=== PATIENT | female | born 1965 | race Caucasian/White ===

== ENCOUNTER → 2018-09-14 | Outpatient (CLI) | payer OTHER ==
[~2018-09-14] MED LIST: AMOXICILLIN; BACITRACIN 50,000 UNIT VIAL ONE; BUPIVACAINE HCL 0.5% INJ 30 ML VIAL INJ ONE; CIPRO500 MG PO; COLLAGENASE OINTMENT 30 GM TUBE ONE; FLEXERIL PO; GABAPENTIN300 MG PO; LIDOCAINE/PRILOCAINE 2.5-2.5% KIT ONE; LISINOPRIL40 MG PO; MINERAL OIL STERILE 10ML VIAL ONE; MUPIROCIN 2% OINT 22 GM TUBE ONE; [UNRECOGNIZED DRUG - OTHER]
== END ==
LOC: WCC 14:47
PROVIDERS: ATTEND Plastic Surgery
DX: T86.821 Skin graft (allograft) (autograft) failure (principal); S81.802A Unspecified open wound, left lower leg, initial encounter; R60.0 Localized edema; M79.661 Pain in right lower leg; L02.435 Carbuncle of right lower limb; I10 Essential (primary) hypertension; B96.89 Other specified bacterial agents as the cause of diseases classified elsewhere; W22.09XA Striking against other stationary object, initial encounter; Z01.810 Encounter for preprocedural cardiovascular examination; Z01.811 Encounter for preprocedural respiratory examination

== ENCOUNTER → 2018-09-17 | Day surgery (SDC) | payer OTHER ==
[~2018-09-17] MED LIST changes: +ACETAMINOPHEN 1000 MG/100 ML IV ONE; -BACITRACIN 50,000 UNIT VIAL ONE; -BUPIVACAINE HCL 0.5% INJ 30 ML VIAL INJ ONE; +CEFAZOLIN SOD 1 GM/NS 50ML 50 ML IV ONE; -COLLAGENASE OINTMENT 30 GM TUBE ONE; +DESFLURANE 240 ML BTL INH ONE; +DEXAMETHASONE SOD PHOS INJ 4 MG/ML VIAL ONE; +EPHEDRINE SULFATE INJ 50 MG/10 ML SYR ONE; +FENTANYL CITRATE/PF 100MCG/2 ML INJ ONE; +HYDROMORPHONE 2MG/ML 2 MG/ML ML ONE; +LIDOCAINE HCL 2% LOCAL INJ 5 ML SDV VIAL INJ ONE; -LIDOCAINE/PRILOCAINE 2.5-2.5% KIT ONE; +MIDAZOLAM HCL 2 MG/2 ML VIAL ONE; -MINERAL OIL STERILE 10ML VIAL ONE; -MUPIROCIN 2% OINT 22 GM TUBE ONE; +ONDANSETRON HCL INJ 2MG/ML 2ML 2 MG/ML VIAL ONE; +PROPOFOL IV EMULSION 10 MG/ML 20 ML VIAL ONE
--- OUTSIDE RECORDS SUMMARY | 2018-09-17 06:22 | XMS REPORT | Clinical Summary ---
Author Author [employer] [facility] [employer] Address Unknown Phone Unavailable Care Team Providers Care Manager Title Name Role Phone Damaris Pryor MD PCP Allergies No Known Allergies Medications End Date Status Medication Sig Dispensed Refills Start Date Active cyclobenzaprine 0 (FLEXERIL) 10 mg tablet 8 Active gabapentin (NEURONTIN) 0 300 mg capsule 8 Active pfojmcekdg-qdXGCGPod-alxl 0 iazid 40-10-12.5 mg 8 tablet Active oxyCODone-acetaminophen 0 (PERCOCET) 10-325 mg per 8 tablet Active traZODone (DESYREL) 50 MG 0 tablet 8 Active CHANTIX STARTING MONTH 0 BOX 0.5 mg (11)- 1 mg 8 (42) tablet Active lactulose (CHRONULAC) 10 0 gram/15 mL solution 8 04/03/2018 Discontinued meloxicam (MOBIC) 15 mg 0 tablet 8 04/03/2018 Discontinued naproxen sodium (ALEVE Take by 0 ORAL) mouth. Active Problems Not on file Encounters Care Team Description Date Type Specialty Tommy Camarena MD Spinal stenosis of lumbar region with neurogenic claudication (Primary Dx) 04/21/2018 Office Visit Orthopedic Surgery Julius Bryant MD 04/03/2018 Anesthesia Orthopedic Surgery Event Tommy Camarena MD DECOMPRESSION L2-4 04/03/2018 Surgery Orthopedic Surgery Tommy Camarena MD Spinal stenosis, lumbar region, with neurogenic claudication; Lumbosacral stenosis; Sciatica 04/03/2018 Hospital Orthopedic Surgery Encounter Tommy Camarena MD Preop testing (Primary Dx) 03/17/2018 Pre-Admit Pre-Admission Testing Testing Appointment Tommy Camarena MD Spinal stenosis of lumbar region with neurogenic claudication (Primary Dx) 03/17/2018 Office Visit Orthopedic Surgery after 09/16/2017 Family History Medical History Relation Name Comments Cancer Father Tommy Lopez Relation Name Status Comments Father Tommy Lopez Social History Date Tobacco Use Types Packs/Day Years Used Current Every Day Smoker Cigarettes 0.5 Smokeless Tobacco: Never Used Tobacco Cessation: Ready to Quit: Yes; Counseling Given: Yes Alcohol Use Drinks/Week oz/Week Comments No Sex Assigned at Date Recorded Not on file Industry Job Start Date Occupation Not on file Not on file Not on file Travel End Travel History Travel Start No recent travel history available. Last Filed Vital Signs Time Taken Vital Sign Reading 04/03/2018 11:17 AM [facility] Blood Pressure 112/74 04/03/2018 11:17 AM [facility] Pulse 81 04/03/2018 11:50 AM [facility] Temperature 36.7 C (98 F) 04/03/2018 11:17 AM [facility] Respiratory Rate 16 04/03/2018 11:17 AM [facility] Oxygen Saturation 96% - Inhaled Oxygen - Concentration 04/03/2018 6:38 AM [facility] Weight 87.1 kg (192 lb) 04/03/2018 6:38 AM [facility] Height 167.6 cm (5' 6") 04/03/2018 6:38 AM [facility] Body Mass Index 30.99 Plan of Treatment Health Maintenance Due Date Last Done Comments BREAST CANCER SCREENING 2014 COLON CANCER SCREENING 2014 SHINGLES VACCINES (#1) 2014 INFLUENZA VACCINE 11/12/2018 Procedures Comments Procedure Name Priority Date/Time Associated Diagnosis SURGICAL PATHOLOGY Routine 04/03/2018 REQUEST 8:49 AM [facility] TX AN ELECTIVE Routine 04/03/2018 ENDOTRACHEAL AIRWAY 8:24 AM [facility] Procedure Note - Venkata Mckinley CRNA - 04/03/2018 8:24 AM [facility] ANESTHESIA INTUBATION Date/Time: 04/03/2018 8:07 AM Performed by: Venkata Mckinley CRNA Authorized by: Julius Bryant MD Location: OR Urgency: Elective Difficult Airway: No Resident/C RNA/AA: Venkata Mckinley CRNA Performed by: resident/C RNA/AA Preoxygena manjinder with 100% O2: Yes C-spine Precaution s Maintained Throughout : Yes Mask Ventilatio n: Easy mask Final Airway Type: Endotrache al airway Final Endotrache al Airway: ETT Cuffed: Yes Technique Used: Direct laryngosco py Devices/Me thods Used in Placement: Intubatin g stylet Insertion Site: Oral Blade Type: Mendoza Laryngosco pe Blade/Vide olaryngosc ope Blade Size: 2 ETT Size (mm): 7.0 Cuff at minimum occlusion pressure: Yes Measured from: Lips ETT to Lips (cm): 22 Placement Verified by: CO2 detection, direct visualizat ion and equal breath sounds Laryngosco pic view: Grade IIa - partial view of glottis Rapid Sequence Induction (RSI): No Modified RSI: No Number of Attempts at Approach: 1 SMOOTH, ATRAUMATIC INTUBATION OR [place] < 1 HOUR Routine 04/03/2018 8:22 AM [facility] LAMINECTOMY, LUMBAR 04/03/2018 Spinal stenosis, lumbar 8:00 AM [facility] region, with neurogenic claudication Lumbosacral stenosis Sciatica Case Notes LARGE C-ARM Special Needs LARGE C-ARM, MICROSCOPE ECG PRE/POST OP Routine 03/17/2018 Preop testing 11:23 AM [facility] ESTIMATED GFR Routine 03/17/2018 10:55 AM [facility] COMPREHENSIVE METABOLIC Routine 03/17/2018 Preop testing PANEL 10:55 AM [facility] HC COMPLETE BLD COUNT Routine 03/17/2018 Preop testing W/AUTO DIFF 10:55 AM [facility] after 09/16/2017 Results * Surgical pathology request (04/03/2018 8:49 AM [facility]OR) [facility] DEPARTMENT OF PATHOLOGY AND GENOMIC MEDICINE Surgical See link below for PDF Lab [facility] DEPARTMENT pathology Report OF PATHOLOGY report AND GENOMIC MEDICINE Result status This is Final Report for [facility] DEPART[facility] [id number] OF PATHOLOGY AND GENOMIC MEDICINE Specimen Performing Organization Address City/State/Zipcode Phone Number [facility] DEPARTMENT OF [address] [place] [address] PATHOLOGY AND GENOMIC MEDICINE * OR [place] < 1 Hour (04/03/2018 8:22 AM [facility] TA[facility]) Specimen Narrative Performed At EXAMINATION:[place] 1 HOUR [facility] C-arm fluoroscopy was requested in OR. Location:[facility]19 - OR10 Procedure:Decompression L2-L4 Start Time:744 End Time: 20 Fluoro Time:1 SEC Dose (mGy): 0.64 mGy Tech(s):GXA IMPRESSION: Separate operative report will be issued by the physician performing the procedure. [id number] Procedure Note Hm Interface, Radiology Results Incoming - 04/03/2018 10:21 PM [facility] EXAMINATION: [place] 1 HOUR C-arm fluoroscopy was requested in OR. Location: [facility]19 - OR10 Procedure: Decompression L2-L4 Start Time: 744 End Time: 819 Fluoro Time: 1 SEC Dose (mGy): 0.64 mGy Tech(s): GXA IMPRESSION: Separate operative report will be issued by the physician performing the procedure. [id number] Performing Organization Address City/[facility] Phone Number [facility] [address] [place] [address] * ECG Pre/Post Op (03/17/2018 11:23 AM [facility] TA[facility]OR) Ventricular 82 [facility] rate Atrial rate 82 [facility] TX interval 146 [facility] QRSD interval 118 [facility] QT interval 400 [facility] QTC interval 467 [facility] P axis 1 26 [facility] QRS axis 1 14 [facility] T wave axis 15 [facility] EKG impression Normal sinus rhythm-Incomplete [facility] right bundle branch block-Borderline ECG-No previous ECGs available- Specimen Narrative Performed At Performing Organization Address [facility] Phone Number [facility] [employer] [address] [place] [address] * Estimated GFR (03/17/2018 10:55 AM [facility] TA[facility]OR) Estimated GFR 50 (A) mL/min/1.73 m2 [place] Comment: [facility] rpretation G1 >=90 Normal or high G2 60-89Mildly decreased [id number] Mildly to moderately decreased Q2x55-18 Moderately to severely decreased G4 15-29Severely decreased G5 <15Kidney failure The eGFR was calculated using the Chronic Kidney Disease Epidemiology Collaboration (CKD-EPI) equation. Interpretation is based on recommendations of the National Kidney Foundation-Kidney Disease Outcomes Quality Initiative (NKF-KDOQI) published in 2014. Specimen Plasma specimen Performing Organization Address City/State/Zipcode Phone Number [facility] DEPARTMENT OF [address] [place] [phone] PATHOLOGY AND GENOMIC MEDICINE [address] * CBC with platelet and differential (03/17/2018 10:55 AM [facility] TAILOR) WBC 6.48 4.50 - 11.00 k/uL [facility] RBC 3.83 (L) 4.20 - 5.50 m/uL [facility] HGB 10.8 (L) 12.0 - 16.0 g/dL [facility] HCT 35.0 (L) 37.0 - 47.0 % [facility] MCV 91.4 82.0 - 100.[address] [facility] MCH 28.2 27.0 - 34.[address] [facility] MCHC 30.9 (L) 31.0 - 37.0 g/dL [facility] RDW - SD 45.9 37.0 - 55.[address] [facility] MPV 10.1 8.8 - 13.[address] [facility] Platelet count 538 (H) 150 - 400 k/uL [facility] Nucleated RBC 0.00 /[address] [facility] Neutrophils 51.3 39.0 - 69.0 % [facility] Lymphocytes 33.8 25.0 - 45.0 % [facility] Monocytes 11.4 (H) 0.0 - 10.0 % [facility] Eosinophils 2.3 0.0 - 5.0 % [facility] Basophils 0.6 0.0 - 1.0 % [facility] Immature 0.6Comment: "Immature 0.0 - 1.0 % [place] granulocytes granulocytes" (promyelocytes, [facility] myelocytes, metamyelocytes) HOSPITAL Specimen Blood Performing Organization Address City/[facility]/Zipcode Phone Number [facility] DEPARTMENT OF [address] [place] [phone] PATHOLOGY AND GENOMIC MEDICINE [address] * Comprehensive metabolic panel (03/17/2018 10:55 AM [facility] TAILOR) Sodium 142 135 - 148 mEq/L [facility] Potassium 4.2 3.5 - 5.0 mEq/L [facility] Chloride 101 98 - 112 mEq/L [facility] CO2 26 24 - 31 mEq/L [facility] Anion gap 15@ANIO 7 - 15 mEq/L [facility] BUN 20 6 - 20 mg/dL [facility] Creatinine 1.22 (H) 0.50 - 0.90 mg/dL [facility] Glucose 78 65 - 99 mg/dL [facility] Calcium 10.0 8.3 - 10.2 mg/dL [facility] Protein 7.1 6.3 - 8.3 g/dL [place] Comment: [facility] 4.6-7.0 g/dL 1 week 4.4-7.6 g/dL 7 months-1year 5.1-7.3 g/dL 1-2 years5.6-7 .5 g/dL >3 years6.0-8 .0 g/dL 18-150 6.3-8.3 g/dL Albumin 3.6 3.5 - 5.0 g/dL [facility] A/G ratio 1.0 0.7 - 3.8 [facility] Alkaline 84 35 - 104 U/L [place] phosphatase [facility] AST 20 10 - 35 U/L [facility] ALT 9 5 - 50 U/L [facility] Total bilirubin <0.2 0.0 - 1.2 mg/dL [facility] Specimen Plasma specimen Performing Organization Address City/State/Zipcode Phone Number [facility] DEPARTMENT OF [address] [place] [phone] PATHOLOGY AND GENOMIC MEDICINE [address] after 09/16/2017 Insurance Type Payer Benefit Subscriber ID Effective Phone Address Plan / Dates Group HMO AETNA AETNA xxxxxxxxxx [id number] HMO,POS,EP resent O, MC/EC Advance Directives Patient has advance care planning documents on file. For more information, chantell ramírez contact: [facility] [address] [facility] [place] [address]
--- OUTSIDE RECORDS SUMMARY | 2018-09-17 06:23 | XMS REPORT | Continuity of Care Document ---
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 25 MG / Olmesartan medoxomil 40 MG Oral Tablet [Tribenzor ] 1 tab, PO, Daily, 0 Refill(s) Active 06/13/2017 [facility] Dilaudid 1 mg, Route: IV, ONCE, Dosing Weight 89.091, kg, Start date: 12/28/15 19:33:00 CDT, Stop date: 12/28/15 19:33:00 CDT Inactive 12/29/2015 [facility] Ketamine 100 mg, Route: IVP, ONCE, Dosing Weight 89.091, kg, Priority: STAT, Start date: 12/28/15 18:32:00 CDT, Stop date: 12/28/15 18:32:00 CDT Inactive 12/28/2015 [facility] Propofol 100 mg, Route: IVP, ONCE, Dosing Weight 89.091, kg, Priority: STAT, Start date: 12/28/15 18:32:00 CDT, Stop date: 12/28/15 18:32:00 CDT Inactive 12/28/2015 [facility] Dilaudid 1 mg, Route: IV, ONCE, Dosing Weight 89.091, kg, Start date: 12/28/15 17:26:00 CDT, Stop date: 12/28/15 17:26:00 CDT Inactive 12/28/2015 [facility] Ondansetron 4 mg, Route: IVP, Drug form: INJ, ONCE, Dosing Weight 89.091, kg, Priority: STAT, Start date: 12/28/15 16:09:00 CDT, Stop date: 12/28/15 16:09:00 CDT Inactive 12/28/2015 [facility] Morphine 4 mg, Route: IVP, ONCE, Dosing Weight 89.091, kg, Priority: STAT, Start date: 12/28/15 16:09:00 CDT, Stop date: 12/28/15 16:09:00 CDT Inactive 12/28/2015 [facility] Enoxaparin 40 mg, 0.4 mL, Route: SUB-Q, Drug form: INJ, [id number], Dosing Weight 89.091, kg, Start date: 11/12/15 7:00:00 CDT, Duration: 30 day, Stop date: 12/11/15 7:00:00 CDTNotes: (Same as: Lovenox) No Longer Active 11/12/2015 [facility] Sodium Chloride 0.154 MEQ/ML Injectable Solution 1,000 mL, Rate: 100 ml/hr, Infuse over: 10 hr, Route: IV, Dosing Weight 89.091 kg, Total Volume: 1,000, Start date: 11/12/15 1:31:00 CDT, Duration: 30 day, Stop date: 12/12/15 1:30:00 CDT Inactive 11/12/2015 [facility] Acetaminophen 325 MG / Hydrocodone Bitartrate 5 MG Oral Tablet 1 tab, Route: PO, Drug Form: TAB, Dosing Weight 89.091, kg, Q4H, PRN Pain Score 4-6, Start date: 11/12/15 1:31:00 CDT, Duration: 30 day, Stop date: 12/12/15 1:30:00 CDTNotes: (Same as: Clovis 325/5) Do not exceed 4gm/day of acetaminophen. No Longer Active 11/12/2015 [facility] Ondansetron 4 mg, 2 mL, Route: IVP, Drug form: INJ, Q6H, Dosing Weight 89.091, kg, PRN Nausea & Vomiting, Start date: 11/12/15 1:31:00 CDT, Duration: 30 day, Stop date: 12/12/15 1:30:00 CDTNotes: (Same as: Zofran) MEDICATION WASTE Product Size: 4 mg Product Wasted: ___ mg No Longer Active 11/12/2015 [facility] Docusate 100 mg, 1 cap, Route: PO, Drug form: CAP, BID, Dosing Weight 89.091, kg, PRN Constipation, Start date: 11/12/15 1:31:00 CDT, Duration: 30 day, Stop date: 12/12/15 1:30:00 CDTNotes: (Same as: Colace) (Do Not Crush) No Longer Active 11/12/2015 [facility] Morphine 4 mg, 2 mL, Route: IVP, Drug form: INJ, Q4H, Dosing Weight 89.091, kg, PRN Pain Score 7-10, Start date: 11/12/15 1:31:00 CDT, Duration: 30 day, Stop date: 12/12/15 1:30:00 CDTNotes: (Same as:MORPhine Sulfate) No Longer Active 11/12/2015 [facility] Saline Flush 0.9% 10 ml, Route: IVP, Drug Form: INJ, Dosing Weight 89.091, kg, PRN, PRN Line Flush, Start date: 11/12/15 1:31:00 CDT, Duration: 30 day, Stop date: 12/12/15 1:30:00 CDTNotes: (Same as: BD Posiflush) No Longer Active 11/12/2015 [facility] Acetaminophen 650 mg, 2 tab, Route: PO, Drug form: TAB, Q4H, Dosing Weight 89.091, kg, PRN Pain 1-3/Temp > 100.4 F, Start date: 11/12/15 1:31:00 CDT, Duration: 30 day, Stop date: 12/12/15 1:30:00 CDTNotes: Do not exceed 4 gm/day. (Same as: Tylenol) No Longer Active 11/12/2015 [facility] Hydromorphone 1 mg, Route: IV, ONCE, Dosing Weight 89.091, kg, Start date: 11/11/15 23:42:00 CDT, Stop date: 11/11/15 23:42:00 CDT Inactive 11/12/2015 [facility] propofol 89.091 mg, 8.91 mL, Route: IVP, Drug form: SUSP, ONCE, Dosing Weight 89.091, kg, Priority: STAT, Start date: 11/11/15 21:56:00 CDT, Stop date: 11/11/15 21:56:00 CDTNotes: If Diprivan - change bottle & tubing every 12 hr Per state nursing law propofol can only be given by a nurse if patient is intubated or being intubated (unless the nurse is a WARP K[employer]IT OPERATOR). Same as: Diprivan No Longer Active 11/12/2015 [facility] Sodium Chloride 0.154 MEQ/ML Injectable Solution 1,000 mL, Rate: 125 ml/hr, Infuse over: 8 hr, Route: IV, Dosing Weight 89.091 kg, Total Volume: 1,000, Priority: STAT, Start date: 11/11/15 21:28:00 CDT, Duration: 1 doses or times, Stop date: 11/12/15 5:27:00 CDT No Longer Active 11/12/2015 [facility] Propofol 89.091 mg, 8.91 mL, Route: IVP, Drug form: INJ, ONCE, Dosing Weight 89.091, kg, Priority: STAT, Start date: 11/11/15 21:28:00 CDT, Stop date: 11/11/15 21:28:00 CDTNotes: If Propoven - change bottle & tubing every 6 hr. Per state nursing law propofol can only be given by a nurse if patient is intubated or being intubated (unless the nurse is a WARP KNIT OPERATOR). Same as: Propoven, [employer] Propoven Non Formulary Inactive 11/12/2015 [facility] Saline Flush 0.9% 10 mL, Route: IVP, Drug Form: INJ, Dosing Weight 89.091, kg, PRN, PRN Line Flush, Start date: 11/11/15 21:27:00 CDT, Duration: 30 day, Stop date: 12/11/15 21:26:00 CDTNotes: (Same as: BD Posiflush) No Longer Active 11/12/2015 [facility] Sodium Chloride 0.154 MEQ/ML Injectable Solution 1,000 mL, 1,000 ml/hr, Infuse Over: 1 hr, Route: IV, 1,000, Drug form: INJ, ONCE, Priority: STAT, Dosing Weight 89.091 kg, Start date: 11/11/15 21:27:00 CDT, Duration: 1 doses or times, Stop date: 11/11/15 21:27:00 CDT Inactive 11/12/2015 [facility] Ondansetron 4 mg, 2 mL, Route: IVP, Drug form: INJ, ONCE, Dosing Weight 89.091, kg, Priority: STAT, Start date: 11/11/15 21:27:00 CDT, Stop date: 11/11/15 21:27:00 CDTNotes: (Same as: Zohra) MEDICATION WASTE Product Size: 4 mg Product Wasted: ___ mg Inactive 11/12/2015 [facility] Dilaudid 2 mg, Route: IVP, ONCE, Dosing Weight 89.091, kg, Priority: STAT, Start date: 11/11/15 21:17:00 CDT, Stop date: 11/11/15 21:17:00 CDT Inactive 11/12/2015 [facility] doxycycline hyclate 100 mg oral tablet 100 mg=1 tab, PO, Q12H, X 10 day, # 20 tab, 0 Refill(s) Active 09/27/2015 [facility] clindamycin 300 mg oral capsule 300 mg=1 cap, PO, Q6H, X 10 day, # 40 cap, 0 Refill(s) Active 09/27/2015 [facility] Ceftriaxone 1 gm, Route: IVPB, Drug form: PDR/INJ, ONCE, Dosing Weight 90.909, kg, Priority: STAT, Start date: 09/26/15 22:13:00 CDT, Stop date: 09/26/15 22:13:00 CDT Inactive 09/27/2015 [facility] Clindamycin 900 mg, 50 mL, Route: IVPB, Drug form: INJ, ONCE, Dosing Weight 90.909, kg, Priority: STAT, Start date: 09/26/15 22:13:00 CDT, Stop date: 09/26/15 22:13:00 CDT Inactive 09/27/2015 [facility] Acetaminophen 325 MG / Hydrocodone Bitartrate 7.5 MG Oral Tablet [Clovis 7.5/325] 1 tab, PO, Q4H, PRN Pain Score 4-6, # 40 tab, 0 Refill(s), given to patient Active 03/23/2015 [facility] Acetaminophen 325 MG / Oxycodone Hydrochloride 10 MG Oral Tablet 1 tab, PO, Q6H, PRN for pain, # 30 tab, 0 Refill(s), given to patient Active 03/23/2015 [facility] Lunesta 3 mg, Route: PO, Bedtime, Dosing Weight 90.909, kg, Start date: 03/22/15 21:00:00, Duration: 30 day, Stop date: 04/20/15 21:00:00 Inactive 03/23/2015 [facility] Lisinopril 40 mg, 2 tab, Route: PO, Drug form: TAB, Daily, Dosing Weight 90.909, kg, Start date: 03/22/15 9:00:00, Duration: 30 day, Stop date: 04/20/15 9:00:00Notes: (Same as: Prinivil, Zestril) No Longer Active 03/22/2015 [facility] Hydrochlorothiazide 12.5 mg, 1 cap, Route: PO, Drug form: CAP, Daily, Dosing Weight 90.909, kg, Start date: 03/22/15 9:00:00, Duration: 30 day, Stop date: 04/20/15 9:00:00Notes: (Same as: Microzide) With food. No Longer Active 03/22/2015 [facility] pneumococcal capsular polysaccharide type 1 vaccine / pneumococcal capsular polysaccharide type 10A vaccine / pneumococcal capsular polysaccharide type 11A vaccine / pneumococcal capsular polysaccharide type 12F vaccine / pneumococcal capsular polysacchar 0.5 mL, Route: IM, Drug Form: INJ, Daily, Start date: 03/22/15 9:00:00, Duration: 1 doses or times, Stop date: 03/22/15 9:00:00Notes: (Same as: Pneumovax 23) Refrigerate Inactive 03/22/2015 [facility] Lovenox 30 mg, 0.3 mL, Route: SUB-Q, Drug form: INJ, [id number], Start date: 03/22/15 9:00:00, Duration: 30 day, Stop date: 04/20/15 21:00:00Notes: (Same as: Lovenox) No Longer Active 03/22/2015 [facility] Cipro 400 mg, 200 mL, Route: IVPB, Drug form: INJ, [id number], Dosing Weight 90.909, kg, Start date: 03/22/15 7:00:00, Duration: 3 day, Stop date: 03/24/15 19:00:00Notes: Do not refrigerate No Longer Active 03/22/2015 [facility] Dilaudid 1.5 mg, 1.5 mL, Route: IV, Drug form: INJ, Q6H, Dosing Weight 90.909, kg, PRN Pain Score 7-10, Start date: 03/22/15 6:19:00, Duration: 2 day, Stop date: 03/24/15 6:18:00 No Longer Active 03/22/2015 [facility] Acetaminophen 325 MG / Hydrocodone Bitartrate 10 MG Oral Tablet [Clovis 10/325] 2 tab, Route: PO, Drug Form: TAB, Dosing Weight 90.909, kg, Q4H, PRN Pain Score 4-6, Start date: 03/22/15 6:18:00, Duration: 30 day, Stop date: 04/21/15 6:17:00Notes: Do not exceed 4gm/day of acetaminophen. (Same as: Clovis 325/10) No Longer Active 03/22/2015 [facility] Lunesta 3 mg, Route: PO, Bedtime, Dosing Weight 90.909, kg, Start date: 03/21/15 21:00:00, Duration: 30 day, Stop date: 04/19/15 21:00:00 Inactive 03/22/2015 [facility] gabapentin 300 MG Oral Capsule 300 mg, 1 cap, Route: PO, Drug form: CAP, TID, Dosing Weight 90.909, kg, Start date: 03/21/15 17:00:00, Duration: 30 day, Stop date: 04/20/15 13:00:00Notes: (Same as: Neurontin) No Longer Active 03/21/2015 [facility] Docusate 100 mg, 1 cap, Route: PO, Drug form: CAP, BID, Dosing Weight 90.909, kg, Start date: 03/21/15 17:00:00, Duration: 30 day, Stop date: 04/20/15 9:00:00Notes: (Same as: Colace) (Do Not Crush) No Longer Active 03/21/2015 [facility] Lunesta 3 mg, Route: PO, Drug form: TAB, Bedtime, Dosing Weight 90.909, kg, PRN Insomnia, Start date: 03/21/15 16:58:00, Duration: 30 day, Stop date: 04/20/15 16:57:00 Inactive 03/21/2015 [facility] Valium 5 mg, Route: PO, Drug form: TAB, QID, Dosing Weight 90.909, kg, PRN Spasm, Start date: 03/21/15 16:58:00, Duration: 30 day, Stop date: 04/20/15 16:57:00 Inactive 03/21/2015 [facility] Ambien 5 mg, 1 tab, Route: PO, Drug form: TAB, Bedtime, Start date: 03/21/15 15:25:00, Stop date: 04/20/15 21:00:00Notes: (Same As: Ambien) No Longer Active 03/21/2015 [facility] ceFAZolin (SCIP) 1 gm, 100 mL, Route: IVPB, Drug form: INJ, [id number], Dosing Weight 90.909, kg, Start date: 03/21/15 12:00:00, Duration: 3 doses or times, Stop date: 03/22/15 4:00:00 No Longer Active 03/21/2015 [facility] Ondansetron 4 mg, Route: IVP, ONCE, Dosing Weight 90.909, kg, PRN Nausea & Vomiting, Start date: 03/21/15 11:12:00 Inactive 03/21/2015 [facility] Hydromorphone 0.5 mg, Route: IVP, Q5Min, Dosing Weight 90.909, kg, PRN Pain Score 7-10, Start date: 03/21/15 11:12:00, Duration: 4 doses or times, Stop date: Limited # of times Inactive 03/21/2015 [facility] Meperidine 12.5 mg, Route: IVP, Q30Min, Dosing Weight 90.909, kg, PRN Other -See Comment, For shivering, Start date: 03/21/15 11:12:00, Duration: 2 doses or times, Stop date: Limited # of times Inactive 03/21/2015 [facility] Morphine 4 mg, Route: IVP, Q5Min, Dosing Weight 90.909, kg, PRN Pain Score 7-10, Start date: 03/21/15 11:12:00, Duration: 3 doses or times, Stop date: Limited # of times Inactive 03/21/2015 [facility] Flumazenil 0.2 mg, Route: IVP, PRN, Dosing Weight 90.909, kg, PRN Benzodiazepine Reversal, Initial dose, Start date: 03/21/15 11:12:00, Duration: 30 day, Stop date: 04/20/15 11:11:00 Inactive 03/21/2015 [facility] Naloxone 0.04 mg, Route: IVP, Q2MIN, Dosing Weight 90.909, kg, PRN Narcotic Reversal, Start date: 03/21/15 11:12:00, Duration: 8 doses or times, Stop date: Limited # of times Inactive 03/21/2015 [facility] Metoprolol 1 mg, Route: IVP, Q5Min, Dosing Weight 90.909, kg, PRN Other -See Comment, Start date: 03/21/15 11:12:00, Duration: 5 doses or times, Stop date: Limited # of times Inactive 03/21/2015 [facility] Oxycodone 5 mg, Route: PO, Drug form: TAB, Q4H, Dosing Weight 90.909, kg, PRN Pain Score 4-6, Start date: 03/21/15 11:12:00, Duration: 30 day, Stop date: 04/20/15 11:11:00 Inactive 03/21/2015 [facility] Hydralazine 10 mg, Route: IVP, Q20Min, Dosing Weight 90.909, kg, PRN Elevated BP, Start date: 03/21/15 11:12:00, Duration: 2 doses or times, Stop date: Limited # of times Inactive 03/21/2015 [facility] Hydromorphone 15 mg, 30 mL, Route: IV, Initial Loading Dose: 0 mg, MAGNET PLACER Dose: 0.2 mg, MAGNET PLACER Lockout: 8 minutes, Continuous Basal Rate: 0 mg, 4 Hour Limit (In MG): 6, Drug Form: INJ, Continuous, Start date: 03/21/15 1 1:00:00, Duration: 30 day, Stop date: 04/20/15 10:59:00Notes: (Same as: Dilaudid) conc=0.5 mg/ml Hydromorphone MAGNET PLACER Dose: ;Delay: ;Basal: No Longer Active 03/21/2015 [facility] Enoxaparin 30 mg, Route: SUB-Q, Drug form: INJ, [id number], Dosing Weight 90.909, kg, Start date: 03/21/15 11:00:00, Duration: 30 day, Stop date: 04/19/15 23:00:00 Inactive 03/21/2015 [facility] Al hydroxide/Mg hydroxide/simethicone 200 mg-200 mg-20 mg/5 mL oral suspension 30 mL, Route: PO, Drug Form: SUSP, Dosing Weight 90.909, kg, Q4H, PRN Indigestion, Start date: 03/21/15 10:34:00, Duration: 30 day, Stop date: 04/20/15 10:33:00Notes: (aluminum hydroxide-magnesium hyd-simethicone [phone]/5ml 30 ml ud ELOISE) No Longer Active 03/21/2015 [facility] Naloxone 0.04 mg, 0.1 mL, Route: IVP, Drug form: INJ, Q2MIN, Dosing Weight 90.909, kg, PRN Narcotic Reversal, Start date: 03/21/15 10:34:00, Duration: 30 day, Stop date: 04/20/15 10:33:00Notes: Same as Narcan No Longer Active 03/21/2015 [facility] Ondansetron 4 mg, 2 mL, Route: IVP, Drug form: INJ, Q8H, Dosing Weight 90.909, kg, PRN Nausea & Vomiting, Start date: 03/21/15 10:34:00, Duration: 30 day, Stop date: 04/20/15 10:33:00Notes: (Same as: Zofran) MEDICATION WASTE Product Size: 4 mg Product Wasted: ___ mg No Longer Active 03/21/2015 [facility] Diazepam 5 mg, 1 mL, Route: IVP, Drug form: INJ, Q4H, Dosing Weight 90.909, kg, PRN Muscle Spasms, Start date: 03/21/15 10:34:00, Duration: 30 day, Stop date: 04/20/15 10:33:00Notes: (Same as: Valium) No Longer Active 03/21/2015 [facility] Hydromorphone 0.3 mg, 0.3 mL, Route: IVP, Drug form: INJ, Q4H, Dosing Weight 90.909, kg, PRN Pain Score 7-10, Start date: 03/21/15 10:34:00, Duration: 30 day, Stop date: 04/20/15 10:33:00 No Longer Active 03/21/2015 [facility] Diphenhydramine 12.5 mg, 0.5 tab, Route: PO, Drug form: TAB, Q6H, Dosing Weight 90.909, kg, PRN Itching, Start date: 03/21/15 10:34:00, Duration: 30 day, Stop date: 04/20/15 10:33:00 No Longer Active 03/21/2015 [facility] Acetaminophen 325 MG / Hydrocodone Bitartrate 7.5 MG Oral Tablet [Clovis 7.5/325] 2 tab, Route: PO, Drug Form: TAB, Dosing Weight 90.909, kg, Q4H, PRN Pain Score 7-10, Start date: 03/21/15 10:34:00, Duration: 30 day, Stop date: 04/20/15 10:33:00Notes: Same as Clovis 325-7.5mg Do not exceed 4gm/day of acetaminophen. No Longer Active 03/21/2015 [facility] Tylenol 650 mg, 2 tab, Route: PO, Drug form: TAB, Q6H, Dosing Weight 90.909, kg, PRN For Temp > 100.4 F, Start date: 03/21/15 10:34:00, Duration: 30 day, Stop date: 04/20/15 10:33:00Notes: Do not exceed 4 gm/day. (Same as: Tylenol) No Longer Active 03/21/2015 [facility] Lactated Ringers IV 1,000 mL 1,000 mL, Rate: 75 ml/hr, Infuse over: 13.3 hr, Route: IV, Dosing Weight 90.909 kg, Total Volume: 1,000, Start date: 03/21/15 10:34:00, Duration: 30 day, Stop date: 04/20/15 10:33:00 No Longer Active 03/21/2015 [facility] Calcium Chloride 0.0014 MEQ/ML / Potassium Chloride 0.004 MEQ/ML / Sodium Chloride 0.103 MEQ/ML / Sodium Lactate 0.028 MEQ/ML Injectable Solution 1,000 mL, Rate: 25 ml/hr, Infuse over: 40 hr, Route: IV, Dosing Weight 90.909 kg, Total Volume: 1,000, Start date: 03/21/15 9:29:00, Duration: 30 day, Stop date: 04/20/15 9:28:00 Inactive 03/21/2015 [facility] Ancef 2 gm, Route: IVPB, ONCE, Dosing Weight 90.909, kg, Start date: 03/21/15 9:00:00, Duration: 1 doses or times, Stop date: 03/21/15 9:00:00, Surgical Prophylaxis Only; For patients Inactive 03/21/2015 [facility] Eszopiclone 3 MG Oral Tablet [Lunesta] 3 mg=1 tab, PO, Bedtime, PRN for insomnia, # 30 tab, 0 Refill(s) Active 03/21/2015 [facility] Diazepam 5 MG Oral Tablet [Valium] 5 mg=1 tab, PO, QID, PRN Spasm, # 30 tab, 0 Refill(s) Active 03/21/2015 [facility] 0.3 ML Enoxaparin sodium 100 MG/ML Prefilled Syringe [Lovenox] 30 mg, SUB-Q, Q12H, X 14 day, # 28 inj, 0 Refill(s) Active 03/21/2015 [facility] Cephalexin 500 MG Oral Capsule [Keflex] 500 mg=1 cap, PO, QID, X 10 day, # 40 cap, 0 Refill(s) Active 03/21/2015 [facility] Cyclobenzaprine hydrochloride 10 MG Oral Tablet [Flexeril] 10 mg, PO, Daily, PRN Muscle Spasm, # 30 tab, 0 Refill(s) Active 03/16/2015 [facility] Acetaminophen 325 MG / Oxycodone Hydrochloride 10 MG Oral Tablet 1 tab, PO, Q6H, PRN for pain, 0 Refill(s) No Longer Active 03/16/2015 [facility] gabapentin 300 MG Oral Capsule 300 mg=1 cap, PO, TID, # 270 cap, 0 Refill(s) Active 03/16/2015 [facility] Acetaminophen 325 MG / Hydrocodone Bitartrate 10 MG Oral Tablet [Clovis 10/325] 1 tab, PO, Q6H, as needed for pain, # 16 tab, 0 Refill(s) Active 07/04/2013 [facility] Acetaminophen 325 MG / Hydrocodone Bitartrate 10 MG Oral Tablet [Clovis 10/325] 1 tab, Route: PO, Dosing Weight 100, kg, ONCE, Start date: 07/04/13 2:02:00, Stop date: 07/04/13 2:02:00 Inactive 07/04/2013 [facility] Ofirmev 1,000 mg, Route: IV, Drug form: INJ, ONCE, Dosing Weight 100, kg, PRN Pain, for > or=50 kg, Start date: 08/11/12 14:53:00 IV No Longer Active [facility] 08/11/2012 [facility] naloxone 0.04 mg, Route: IVP, Q2MIN, Dosing Weight 100, kg, PRN Narcotic Reversal, Start date: 08/11/12 14:53:00, Duration: 8 doses or times, Stop date: Limited # of times IVP No Longer Active [facility] 08/11/2012 [facility] meperidine 12.5 mg, Route: IVP, Q30Min, Dosing Weight 100, kg, PRN Other -See Comment, For shivering, Start date: 08/11/12 14:53:00, Duration: 2 doses or times, Stop date: Limited # of times IVP No Longer Active [facility] 08/11/2012 [facility] flumazenil 0.2 mg, Route: IVP, PRN, Dosing Weight 100, kg, PRN Benzodiazepine Reversal, Initial dose, Start date: 08/11/12 14:53:00, Duration: 30 day, Stop date: 09/10/12 14:52:00 IVP No Longer Active [facility] 08/11/2012 [facility] fentanyl 25 microgram, Route: IVP, Q5Min, Dosing Weight 100, kg, PRN Pain Score 4-6, Start date: 08/11/12 14:53:00, Duration: 4 doses or times, Stop date: Limited # of times IVP No Longer Active [facility] 08/11/2012 [facility] hydromorphone 0.5 mg, Route: IVP, Q5Min, Dosing Weight 100, kg, PRN Pain Score 4-6, Start date: 08/11/12 14:53:00, Duration: 5 doses or times, Stop date: Limited # of times IVP No Longer Active [facility] 08/11/2012 [facility] acetaminophen-hydrocodone 325 mg-5 mg oral tablet 1 tab, Route: PO, Dosing Weight 100, kg, Q4H, PRN Pain Score 1-3, Start date: 08/11/12 14:53:00, Duration: 30 day, Stop date: 09/10/12 14:52:00 PO No Longer Active Ruiz 08/11/2012 [facility] ondansetron 4 mg, Route: IVP, ONCE, Dosing Weight 100, kg, PRN Nausea & Vomiting, Start date: 08/11/12 14:53:00 IVP No Longer Active Ruiz 08/11/2012 [facility] labetalol 5 mg, Route: IVP, Q5Min, Dosing Weight 100, kg, PRN Elevated BP, Start date: 08/11/12 14:53:00, Duration: 5 doses or times, Stop date: Limited # of times IVP No Longer Active Ruiz 08/11/2012 [facility] metoprolol 1 mg, Route: IVP, Q5Min, Dosing Weight 100, kg, PRN Elevated BP, Start date: 08/11/12 14:53:00, Duration: 5 doses or times, Stop date: Limited # of times IVP No Longer Active [facility] 08/11/2012 [facility] Lactated Ringers Injection IV 1000 mL 1,000 mL, Rate: 50 ml/hr, Infuse over: 20 hr, Route: IV, Dosing Weight 100 kg, Total Volume: 1,000, Start date: 08/11/12 14:53:00, Duration: 30 day, Stop date: 09/10/12 14:52:00 IV No Longer Active [facility] 08/11/2012 [facility] ketorolac 15 mg, 1 mL, Route: IVP, Drug form: INJ, Q6H, Dosing Weight 100, kg, PRN Breakthrough Pain, Start date: 08/11/12 13:58:00, Duration: 4 day, Stop date: 08/15/12 13:57:00 IVP No Longer Active [facility] 08/11/2012 [facility] morphine Sulfate 2 mg, 1 mL, Route: IVP, Drug form: INJ, Q3H, Dosing Weight 100, kg, PRN Pain Score 1-3, Start date: 08/11/12 13:58:00, Duration: 30 day, Stop date: 09/10/12 13:57:00 IVP No Longer Active [facility] 08/11/2012 [facility] Lactated Ringers Injection IV 1000 mL 1,000 mL, Rate: 25 ml/hr, Infuse over: 40 hr, Route: IV, Dosing Weight 100 kg, Total Volume: 1,000, Start date: 08/11/12 13:00:00, Duration: 30 day, Stop date: 09/10/12 12:59:00 IV No Longer Active [facility] 08/11/2012 [facility] cefazolin 2 gm, 100 mL, Route: IVPB, Drug form: INJ, ONCE, Dosing Weight 100, kg, Start date: 08/11/12 12:59:00, Stop date: 08/11/12 12:59:00 IVPB Active [facility] 08/11/2012 [facility] Lyrica 75 mg oral capsule 75 mg, 1 cap, PO, TID, 90 cap, Substitution Allowed, CAP PO Active 08/07/2012 [facility] Allergies, Adverse Reactions, Alerts Substance Category Reaction Severity Reaction type Status Date Reported Comments Source No Known Medication Allergies Assertion Drug allergy [facility] Immunizations Immunization Date Given Site Status Last Updated Comments Source pneumococcal 23-valent vaccine 03/22/2015 Right deltoid completed [facility] Results Order Name Results Value Reference Range Date Interpretation Comments Source CHEM PANEL eGFR 46 mL/min/1.73m2 08/25/2017 Result Comment: The eGFR is calculated using the CKD-EPI formula. In most young, healthy individuals the eGFR will be >90 mL/min/1.73m2. The eGFR declines with age. An eGFR of 60-89 may be normal in some populations, particularly the elderly, for whom the CKD-EPI formula has not been extensively validated. Use of the eGFR is not recommended in the following populations: Individuals with unstable creatinine concentrations, including patients and those with serious co-morbid conditions. Patients with extremes in muscle mass or diet. The data above are obtained from the National Kidney Disease Education Program (NKDEP) which additionally recommends that when the eGFR is used in patients with extremes of body mass index for purposes of drug dosing, the eGFR should be multiplied by the estimated BMI. [facility] CHEM PANEL Glucose Lvl 83 mg/dL 70 - 99 08/25/2017 [facility] CHEM PANEL Calcium Lvl 9.4 mg/dL 8.5 - 10.5 08/25/2017 [facility] CHEM PANEL Chloride Lvl 103 meq/L 95 - 109 08/25/2017 [facility] CHEM PANEL CO2 25 meq/L 24 - 32 08/25/2017 [facility] CHEM PANEL Sodium Lvl 140 meq/L 135 - 145 08/25/2017 [facility] CHEM PANEL Potassium Lvl 4.4 meq/L 3.5 - 5.1 08/25/2017 [facility] CHEM PANEL Creatinine Lvl 1.33 mg/dL 0.50 - 1.40 08/25/2017 [facility] CHEM PANEL BUN 23 mg/dL 7 - 22 08/25/2017 [facility] CHEM PANEL AGAP 16.4 meq/L 10.0 - 20.0 08/25/2017 [facility] MCH 29.7 pg 27.0 - 31.0 08/25/2017 [facility] MCHC 33.4 g/dL 32.0 - 36.0 08/25/2017 [facility] MCV 88.8 fL 80.0 - 98.0 08/25/2017 [facility] Platelet 414 K/CMM 133 - 450 08/25/2017 [facility] MPV 7.2 fL 7.4 - 10.4 08/25/2017 [facility] RDW 14.9 % 11.5 - 14.5 08/25/2017 [facility] Hct 33.9 % 36.0 - 48.0 08/25/2017 [facility] Hgb 11.3 g/dL 12.0 - 16.0 08/25/2017 [facility] RBC 3.82 M/CMM 4.20 - 5.40 08/25/2017 [facility] WBC 7.9 K/CMM 3.7 - 10.4 08/25/2017 [facility] Basophils 0.6 % 0.0 - 1.0 08/25/2017 [facility] Segs-Bands # 5.0 K/CMM 1.5 - 8.1 08/25/2017 [facility] Lymphocytes # 1.9 K/CMM 1.0 - 5.5 08/25/2017 [facility] HEMATOLOGY Eosinophils 3.0 % 0.0 - 4.0 08/25/2017 [facility] Basophils # 0.1 K/CMM 0.0 - 0.2 08/25/2017 [facility] Eosinophils # 0.2 K/CMM 0.0 - 0.5 08/25/2017 [facility] Monocytes # 0.8 K/CMM 0.0 - 0.8 08/25/2017 [facility] Monocytes 9.6 % 2.0 - 12.0 08/25/2017 [facility] Lymphocytes 23.5 % 20.0 - 40.0 08/25/2017 [facility] Segs 63.3 % 45.0 - 75.0 08/25/2017 [facility] Knee 1-2 Views unilateral DX Knee 1-2 Views unilateral DX Left knee, 2 views HISTORY: Patellar dislocation. Post reduction images. COMPARISON: Same-day radiographs. FINDINGS: Joint prosthesis noted. The patella has been relocated. There is evidence of anterior soft tissue swelling. There may be a suprapatellar joint effusion. No fracture is apparent. The prosthesis limits visibility of the patella on the frontal view. IMPRESSION: 1. Successful reduction. 2. No definite evidence of fracture. 3. Anterior soft tissue swelling. Possible joint effusion. SL: [id number] 07/24/2017 - - Read by: Florentin King MD Dictated Date/time: 07/24/17 18:11 Electronically Signed by: Florentin King MD 07/24/17 18:14 FINAL REPORT [facility] Knee 3 views DX Knee 3 views DX Clinical Indication: - pain/total knee; Comparison: 07/01/2017 FINDINGS: 3 views of the left knee. There is a total knee arthroplasty with patellar resurfacing. There is a moderate-sized joint effusion and soft tissue swelling predominantly medially. Edema seen in Hoffa's fat pad. The patellar component appears displaced laterally. IMPRESSION: 1. Suspect acute lateral patellar dislocation. 2. 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 SL: [id number] 07/24/2017 - - Read by: Uma Echols MD Dictated Date/time: 07/24/17 16:47 Electronically Signed by: Uma Echols MD 07/24/17 16:50 FINAL REPORT [facility] Breast Complete Uni US Breast Complete Uni US COMPLETE ULTRASOUND OF LEFT BREAST AND AXILLA: 07/17/2017 CLINICAL: /Lump upper inner quadrant left breast. COMPARISON:Comparison is made to exams dated: 07/17/2017 mammogram, 03/05/2013 mammogram, 02/06/2012 ultrasound, 02/06/2012 mammogram, 01/23/2011 mammogram - [facility], and 09/29/2009 ultrasound - [facility]. TECHNIQUE: Color flow and real-time ultrasound of the left breast four quadrants and axilla regions were performed. Soto scale images of the real-time examination were reviewed. All 4 quadrants, the retroareolar region and axilla are evaluated in this exam. FINDINGS: There is a 1.3 cm benign oval shaped hyperechoic lipoma with a circumscribed margin left breast at 10 o'clock that correlates with mammography and clinical concern. No abnormalities were seen sonographically in the left axilla. IMPRESSION: BENIGN There is no sonographic evidence of malignancy. A 1 year screening mammogram is recommended.(07/18/2018) The results were reviewed with the patient. This exam was interpreted at [id number] for [facility]. Ailyn Posada M.D. jt/:07/17/2017 15:40:57 Media Developer(s): Macie Brooks [facility] letter sent: BI-RADS 1/2 Ultrasound BI-RADS: 2 Benign 07/17/2017 - - Read by: Ailyn Posada MD Dictated Date/time: 07/17/17 15:40 Electronically Signed by: Ailyn Posada MD 07/17/17 15:40 FINAL REPORT [facility] Breast Mammo Diag TAL incl CAD MA Breast Mammo Diag TAL incl CAD MA BILATERAL DIGITAL DIAGNOSTIC MAMMOGRAM WITH CAD: 07/17/2017 CLINICAL: Left upper inner quadrant Breast Lump. Current study was evaluated with a Computer Aided Detection (CAD) system. COMPARISON:Comparison is made to exams dated: 03/05/2013 mammogram, 02/06/2012 ultrasound, 02/06/2012 mammogram, 01/23/2011 mammogram - [facility], 09/29/2009 ultrasound biopsy, and 09/08/2009 mammogram - [facility]. TECHNIQUE: Mammographic views were obtained using digital acquisition. [employer] Version 1.3 was utilized for computer aided detection. FINDINGS: There are scattered fibroglandular densities in both breasts. Benign appearing densities are noted in both breasts. There are benign calcifications in both breasts. No significant masses, calcifications, or other findings are seen in either breast. IMPRESSION: INCOMPLETE: NEEDS ADDITIONAL IMAGING EVALUATION RECOMMENDATION:There is no mammographic abnormality seen in the left breast to correspond with the palpable abnormality in the upper inner quadrant, however, ultrasound is recommended. The results were reviewed with the patient. This exam was interpreted at [id number] for [facility]. SUMMARY: Ultrasound will be performed at this time; please see dedicated separate report. Ailyn pascual/rivka:07/17/2017 15:39:32 Media Developer(s): Laura Solis, [facility] Mammogram BI-RADS: 0 Indeterminate 07/17/2017 - - Read by: Ailyn Posada MD Dictated Date/time: 07/17/17 15:39 Electronically Signed by: Ailyn Posada MD 07/17/17 15:39 FINAL REPORT [facility] Platelet 399 K/CMM 133 - 450 07/03/2017 [facility] MCV 91.4 fL 80.0 - 98.0 07/03/2017 [facility] MCH 30.5 pg 27.0 - 31.0 07/03/2017 [facility] MCHC 33.4 g/dL 32.0 - 36.0 07/03/2017 [facility] RDW 14.2 % 11.5 - 14.5 07/03/2017 [facility] MPV 7.4 fL 7.4 - 10.4 07/03/2017 [facility] Hct 34.0 % 36.0 - 48.0 07/03/2017 [facility] WBC 10.2 K/CMM 3.7 - 10.4 07/03/2017 [facility] RBC 3.72 M/CMM 4.20 - 5.40 07/03/2017 [facility] Hgb 11.4 g/dL 12.0 - 16.0 07/03/2017 [facility] Basophils 0.8 % 0.0 - 1.0 07/03/2017 [facility] Segs-Bands # 6.6 K/CMM 1.5 - 8.1 07/03/2017 [facility] HEMATOLOGY Lymphocytes # 2.3 K/CMM 1.0 - 5.5 07/03/2017 [facility] HEMATOLOGY Monocytes # 1.1 K/CMM 0.0 - 0.8 07/03/2017 [facility] HEMATOLOGY Eosinophils # 0.1 K/CMM 0.0 - 0.5 07/03/2017 [facility] HEMATOLOGY Basophils # 0.1 K/CMM 0.0 - 0.2 07/03/2017 [facility] HEMATOLOGY Segs 64.6 % 45.0 - 75.0 07/03/2017 [facility] HEMATOLOGY Lymphocytes 22.4 % 20.0 - 40.0 07/03/2017 [facility] Monocytes 10.9 % 2.0 - 12.0 07/03/2017 [facility] HEMATOLOGY Eosinophils 1.3 % 0.0 - 4.0 07/03/2017 [facility] CHEM PANEL eGFR 83 mL/min/1.73m2 07/02/2017 Result Comment: The eGFR is calculated using the CKD-EPI formula. In most young, healthy individuals the eGFR will be >90 mL/min/1.73m2. The eGFR declines with age. An eGFR of 60-89 may be normal in some populations, particularly the elderly, for whom the CKD-EPI formula has not been extensively validated. Use of the eGFR is not recommended in the following populations: Individuals with unstable creatinine concentrations, including patients and those with serious co-morbid conditions. Patients with extremes in muscle mass or diet. The data above are obtained from the National Kidney Disease Education Program (NKDEP) which additionally recommends that when the eGFR is used in patients with extremes of body mass index for purposes of drug dosing, the eGFR should be multiplied by the estimated BMI. [facility] CHEM PANEL Glucose Lvl 110 mg/dL 70 - 99 07/02/2017 [facility] CHEM PANEL Creatinine Lvl 0.82 mg/dL 0.50 - 1.40 07/02/2017 [facility] CHEM PANEL BUN 16 mg/dL 7 - 22 07/02/2017 [facility] CHEM PANEL Sodium Lvl 141 meq/L 135 - 145 07/02/2017 [facility] CHEM PANEL Potassium Lvl 4.5 meq/L 3.5 - 5.1 07/02/2017 [facility] CHEM PANEL CO2 27 meq/L 24 - 32 07/02/2017 [facility] CHEM PANEL Chloride Lvl 105 meq/L 95 - 109 07/02/2017 [facility] CHEM PANEL Calcium Lvl 8.3 mg/dL 8.5 - 10.5 07/02/2017 [facility] CHEM PANEL AGAP 13.5 meq/L 10.0 - 20.0 07/02/2017 [facility] Monocytes # 1.3 K/CMM 0.0 - 0.8 07/02/2017 [facility] HEMATOLOGY Lymphocytes # 2.1 K/CMM 1.0 - 5.5 07/02/2017 [facility] HEMATOLOGY Eosinophils 0.2 % 0.0 - 4.0 07/02/2017 [facility] Basophils 0.3 % 0.0 - 1.0 07/02/2017 [facility] Segs-Bands # 10.2 K/CMM 1.5 - 8.1 07/02/2017 [facility] Monocytes 9.7 % 2.0 - 12.0 07/02/2017 [facility] Segs 74.4 % 45.0 - 75.0 07/02/2017 [facility] Lymphocytes 15.4 % 20.0 - 40.0 07/02/2017 [facility] WBC 13.6 K/CMM 3.7 - 10.4 07/02/2017 [facility] MCV 90.9 fL 80.0 - 98.0 07/02/2017 [facility] Hgb 11.4 g/dL 12.0 - 16.0 07/02/2017 [facility] Hct 34.1 % 36.0 - 48.0 07/02/2017 [facility] Platelet 441 K/CMM 133 - 450 07/02/2017 [facility] MCH 30.4 pg 27.0 - 31.0 07/02/2017 [facility] MCHC 33.4 g/dL 32.0 - 36.0 07/02/2017 [facility] RDW 14.2 % 11.5 - 14.5 07/02/2017 [facility] RBC 3.75 M/CMM 4.20 - 5.40 07/02/2017 [facility] MPV 7.3 fL 7.4 - 10.4 07/02/2017 [facility] Knee 1-2 Views unilateral DX Knee 1-2 Views unilateral DX Patient Name: KATE HERNÁNDEZ : 1965; Age: 51 years y/o Female MR: [id number] Study: Knee 1-2 Views unilateral DX 07/01/2017 11:10 AM CDT Ordering Physician: Candido Al DO Comparison: None Clinical Indication: Joint deformities - s/p total knee arthroplasty; Left knee 2 views. Postoperative changes are noted in the soft tissues about the left knee. Postoperative pneumarthrosis is present. Skin ricardo overlie the ventral aspect of the left knee. Left knee prosthesis is noted with the prosthetic components in satisfactory position. No acute fracture or dislocation is noted. No radiopaque foreign body. SL: [id number] 07/01/2017 - - Read by: Sylvain Echols MD Dictated Date/time: 07/01/17 13:54 Electronically Signed by: Sylvain Echols MD 07/01/17 13:55 FINAL REPORT [facility] BLOOD BANK RESULTS Antibody Scrn Negative (06/26/17 4:33 PM) 06/26/2017 [facility] BLOOD BANK RESULTS ABO/Rh B POS 06/26/2017 [facility] BLOOD [facility] RESULTS RBC product Product available (06/26/17 4:28 PM) 06/26/2017 [facility] BLOOD BANK RESULTS ABO/Rh B POS 06/13/2017 [facility] BLOOD BANK RESULTS Antibody Scrn Negative (06/13/17 3:28 PM) 06/13/2017 [facility] ELECTROLYTES AGAP 10.0 meq/L 10.0 - 20.0 06/13/2017 [facility] ELECTROLYTES Potassium Lvl 5.0 meq/L 3.5 - 5.1 06/13/2017 [facility] ELECTROLYTES Chloride Lvl 106 meq/L 95 - 109 06/13/2017 [facility] ELECTROLYTES CO2 29 meq/L 24 - 32 06/13/2017 [facility] ELECTROLYTES Sodium Lvl 140 meq/L 135 - 145 06/13/2017 [facility] Platelet 372 K/CMM 133 - 450 06/13/2017 [facility] MPV 7.9 fL 7.4 - 10.4 06/13/2017 [facility] MCV 93.6 fL 80.0 - 98.0 06/13/2017 [facility] MCHC 32.5 g/dL 32.0 - 36.0 06/13/2017 [facility] MCH 30.4 pg 27.0 - 31.0 06/13/2017 [facility] RDW 15.6 % 11.5 - 14.5 06/13/2017 [facility] WBC 11.9 K/CMM 3.7 - 10.4 06/13/2017 [facility] Hgb 12.8 g/dL 12.0 - 16.0 06/13/2017 [facility] RBC 4.20 M/CMM 4.20 - 5.40 06/13/2017 [facility] Hct 39.3 % 36.0 - 48.0 06/13/2017 [facility] Segs 64.8 % 45.0 - 75.0 06/13/2017 [facility] RBC Morph Normal (06/13/17 3:28 PM) 06/13/2017 [facility] Plt Morph Normal (06/13/17 3:28 PM) 06/13/2017 [facility] Lymphocytes 20.8 % 20.0 - 40.0 06/13/2017 [facility] Monocytes 12.8 % 2.0 - 12.0 06/13/2017 [facility] Monocytes # 1.5 K/CMM 0.0 - 0.8 06/13/2017 [facility] Segs-Bands # 7.7 K/CMM 1.5 - 8.1 06/13/2017 [facility] Eosinophils 1.1 % 0.0 - 4.0 06/13/2017 [facility] Basophils 0.5 % 0.0 - 1.0 06/13/2017 [facility] Lymphocytes # 2.5 K/CMM 1.0 - 5.5 06/13/2017 [facility] Basophils # 0.1 K/CMM 0.0 - 0.2 06/13/2017 [facility] Eosinophils # 0.1 K/CMM 0.0 - 0.5 06/13/2017 [facility] INR 0.93 0.85 - 1.17 06/13/2017 [facility] PT 12.5 s 12.0 - 14.7 06/13/2017 [facility] PTT 24.4 s 22.9 - 35.8 06/13/2017 [facility] BLOOD BANK RESULTS RBC product Product available (06/13/17 3:27 PM) 06/13/2017 [facility] Hip 2/3 views uni DX Hip 2/3 views uni DX EXAM: XR RIGHT HIP 2 VIEWS AND AP PELVIS DATE: 12/28/2015 6:31 PM CDT INDICATION: Limitation of movement COMPARISON: Right hip radiographs December 28, 2015 at 1728 hours from [facility] TECHNIQUE: Sequential AP, AP and internal rotation and crosstable lateral radiographs of the right hip ( labeled 1 through 7) for a total of 7 images during reduction attempt. DISCUSSION: The patient has undergone previous right total hip arthroplasty. The fifth through seventh images reveal relocation of right hip dislocation. Hardware appears intact. There is no acute fracture of the right hip identified. IMPRESSION: Interval reduction of right hip dislocation in a patient who has previously undergone right total hip arthroplasty, with an expected appearance. 12/28/2015 - - Read by: Claribel Holden MD Dictated Date/time: 12/28/15 21:27 Electronically Signed by: Claribel Holden MD 12/28/15 21:31 FINAL REPORT [facility] Hip 2/3 views uni DX Hip 2/3 views uni DX EXAM: XR XR RIGHT HIP 2 VIEW AND AP PELVIS EXAM: XR RIGHT FEMUR 2 VIEWS DATE: 12/27/2015 at 1650 hours INDICATION: Pain from a fall COMPARISON: Outside hospital hip 2 views 12/28/2015 at 0627 hours TECHNIQUE: AP pelvis, 2 view hip, 2 views of the femur FINDINGS: The patient has undergone prior right total hip arthroplasty. The hardware appears intact. However, the right femur is superiorly displaced. The femoral prosthesis projects above the level of the acetabulum. Posterior dislocation of the right hip is present. The acetabular component and femoral prosthesis appear intact. Fixation screws appear intact. There is no evidence of hardware loosening. The right femur externally rotated. The patient has undergone total right knee arthroplasty was resurfacing of the patella. The femoral and tibial hardware appears intact without evidence of loosening. Small right knee effusion is present. The right femur and right hip appear intact. IMPRESSION: 1. Posterior right hip dislocation in a patient who is undergone prior total right hip arthroplasty. 2. Prior right total knee arthroplasty and resurfacing of the patella without acute abnormality. 3. Small right knee effusion. 4. There is no evidence of hardware loosening or hardware failure. 12/28/2015 - - This report was dictated by a Balance Wheel Screw Hole Driller/Fellow. I have personally reviewed the images as well as the Resident's interpretation and agree with the findings. Read by: Rex Hu MD Resident: Rex Hu MD Dictated Date/time: 12/28/15 17:14 Electronically Signed by: Claribel Holden MD 12/28/15 17:47 FINAL REPORT [facility] Femur series DX Femur series DX EXAM: XR XR RIGHT HIP 2 VIEW AND AP PELVIS EXAM: XR RIGHT FEMUR 2 VIEWS DATE: 12/27/2015 at 1650 hours INDICATION: Pain from a fall COMPARISON: Outside hospital hip 2 views 12/28/2015 at 0627 hours TECHNIQUE: AP pelvis, 2 view hip, 2 views of the femur FINDINGS: The patient has undergone prior right total hip arthroplasty. The hardware appears intact. However, the right femur is superiorly displaced. The femoral prosthesis projects above the level of the acetabulum. Posterior dislocation of the right hip is present. The acetabular component and femoral prosthesis appear intact. Fixation screws appear intact. There is no evidence of hardware loosening. The right femur externally rotated. The patient has undergone total right knee arthroplasty was resurfacing of the patella. The femoral and tibial hardware appears intact without evidence of loosening. Small right knee effusion is present. The right femur and right hip appear intact. IMPRESSION: 1. Posterior right hip dislocation in a patient who is undergone prior total right hip arthroplasty. 2. Prior right total knee arthroplasty and resurfacing of the patella without acute abnormality. 3. Small right knee effusion. 4. There is no evidence of hardware loosening or hardware failure. 12/28/2015 - - This report was dictated by a Balance Wheel Screw Hole Driller/Fellow. I have personally reviewed the images as well as the Resident's interpretation and agree with the findings. Read by: Rex Hu MD Resident: Rex Hu MD Dictated Date/time: 12/28/15 17:14 Electronically Signed by: Claribel Holden MD 12/28/15 17:47 FINAL REPORT [facility] CHEM PANEL Creatinine Lvl 0.84 mg/dL 0.50 - 1.40 11/12/2015 [facility] CHEM PANEL eGFR 80 mL/min/1.73m2 11/12/2015 Result Comment: The eGFR is calculated using the CKD-EPI formula. In most young, healthy individuals the eGFR will be >90 mL/min/1.73m2. The eGFR declines with age. An eGFR of 60-89 may be normal in some populations, particularly the elderly, for whom the CKD-EPI formula has not been extensively validated. Use of the eGFR is not recommended in the following populations: Individuals with unstable creatinine concentrations, including patients and those with serious co-morbid conditions. Patients with extremes in muscle mass or diet. The data above are obtained from the National Kidney Disease Education Program (NKDEP) which additionally recommends that when the eGFR is used in patients with extremes of body mass index for purposes of drug dosing, the eGFR should be multiplied by the estimated BMI. [facility] HEMATOLOGY Platelet 296 K/CMM 133 - 450 11/12/2015 [facility] HEMATOLOGY PTT 27.2 s 22.9 - 35.8 11/12/2015 [facility] ELECTROLYTES AGAP 10.7 meq/L 10.0 - 20.0 11/12/2015 [facility] ELECTROLYTES eGFR 79 mL/min/1.73m2 11/12/2015 Result Comment: The eGFR is calculated using the CKD-EPI formula. In most young, healthy individuals the eGFR will be >90 mL/min/1.73m2. The eGFR declines with age. An eGFR of 60-89 may be normal in some populations, particularly the elderly, for whom the CKD-EPI formula has not been extensively validated. Use of the eGFR is not recommended in the following populations: Individuals with unstable creatinine concentrations, including patients and those with serious co-morbid conditions. Patients with extremes in muscle mass or diet. The data above are obtained from the National Kidney Disease Education Program (NKDEP) which additionally recommends that when the eGFR is used in patients with extremes of body mass index for purposes of drug dosing, the eGFR should be multiplied by the estimated BMI. [facility] ELECTROLYTES CO2 27 meq/L 24 - 32 11/12/2015 [facility] ELECTROLYTES Calcium Lvl 8.4 mg/dL 8.5 - 10.5 11/12/2015 [facility] ELECTROLYTES Potassium Lvl 3.7 meq/L 3.5 - 5.1 11/12/2015 [facility] ELECTROLYTES Chloride Lvl 109 meq/L 95 - 109 11/12/2015 [facility] ELECTROLYTES Sodium Lvl 143 meq/L 135 - 145 11/12/2015 [facility] ELECTROLYTES Creatinine Lvl 0.86 mg/dL 0.50 - 1.40 11/12/2015 [facility] ELECTROLYTES BUN 16 mg/dL 7 - 22 11/12/2015 [facility] ELECTROLYTES Glucose Lvl 103 mg/dL 70 - 99 11/12/2015 [facility] Hct 33.4 % 36.0 - 48.0 11/12/2015 [facility] Hgb 11.1 g/dL 12.0 - 16.0 11/12/2015 [facility] MCH 29.8 pg 27.0 - 31.0 11/12/2015 [facility] MCV 89.8 fL 80.0 - 98.0 11/12/2015 [facility] MCHC 33.2 g/dL 32.0 - 36.0 11/12/2015 [facility] Platelet 283 K/CMM 133 - 450 11/12/2015 [facility] MPV 8.0 fL 7.4 - 10.4 11/12/2015 [facility] RDW 14.5 % 11.5 - 14.5 11/12/2015 [facility] WBC 7.4 K/CMM 3.7 - 10.4 11/12/2015 [facility] RBC 3.72 M/CMM 4.20 - 5.40 11/12/2015 [facility] Monocytes # 0.9 K/CMM 0.0 - 0.8 11/12/2015 [facility] Basophils 0.9 % 0.0 - 1.0 11/12/2015 [facility] Segs-Bands # 4.3 K/CMM 1.5 - 8.1 11/12/2015 [facility] Lymphocytes # 1.9 K/CMM 1.0 - 5.5 11/12/2015 [facility] Basophils # 0.1 K/CMM 0.0 - 0.2 11/12/2015 [facility] Eosinophils # 0.2 K/CMM 0.0 - 0.5 11/12/2015 [facility] Lymphocytes 26.1 % 20.0 - 40.0 11/12/2015 [facility] Segs 57.7 % 45.0 - 75.0 11/12/2015 [facility] Monocytes 12.2 % 2.0 - 12.0 11/12/2015 [facility] Eosinophils 3.1 % 0.0 - 4.0 11/12/2015 [facility] CHEM PANEL Bili Total 0.2 mg/dL 0.2 - 1.3 11/12/2015 [facility] CHEM PANEL eGFR 73 mL/min/1.73m2 11/12/2015 Result Comment: The eGFR is calculated using the CKD-EPI formula. In most young, healthy individuals the eGFR will be >90 mL/min/1.73m2. The eGFR declines with age. An eGFR of 60-89 may be normal in some populations, particularly the elderly, for whom the CKD-EPI formula has not been extensively validated. Use of the eGFR is not recommended in the following populations: Individuals with unstable creatinine concentrations, including patients and those with serious co-morbid conditions. Patients with extremes in muscle mass or diet. The data above are obtained from the National Kidney Disease Education Program (NKDEP) which additionally recommends that when the eGFR is used in patients with extremes of body mass index for purposes of drug dosing, the eGFR should be multiplied by the estimated BMI. [facility] CHEM PANEL Potassium Lvl 3.6 meq/L 3.5 - 5.1 11/12/2015 [facility] CHEM PANEL Creatinine Lvl 0.91 mg/dL 0.50 - 1.40 11/12/2015 [facility] CHEM PANEL Sodium Lvl 140 meq/L 135 - 145 11/12/2015 [facility] CHEM PANEL Alk Phos 92 unit/L 39 - 136 11/12/2015 [facility] CHEM PANEL AST 17 unit/L 0 - 37 11/12/2015 [facility] CHEM PANEL Glucose Lvl 95 mg/dL 70 - 99 11/12/2015 [facility] CHEM PANEL Total Protein 7.4 g/dL 6.4 - 8.4 11/12/2015 [facility] CHEM PANEL ALT 18 unit/L 0 - 65 11/12/2015 [facility] CHEM PANEL BUN 19 mg/dL 7 - 22 11/12/2015 [facility] CHEM PANEL Calcium Lvl 9.1 mg/dL 8.5 - 10.5 11/12/2015 [facility] CHEM PANEL Albumin Lvl 4.1 g/dL 3.5 - 5.0 11/12/2015 [facility] CHEM PANEL CO2 27 meq/L 24 - 32 11/12/2015 [facility] CHEM PANEL Chloride Lvl 105 meq/L 95 - 109 11/12/2015 [facility] CHEM PANEL A/G Ratio 1.2 0.7 - 1.6 11/12/2015 [facility] CHEM PANEL B/C Ratio 21 6 - 25 11/12/2015 [facility] CHEM PANEL Globulin 3.3 g/dL 2.0 - 4.0 11/12/2015 [facility] CHEM PANEL AGAP 11.6 meq/L 10.0 - 20.0 11/12/2015 [facility] ENDOCRINOLOGY S Preg Negative *NA* (11/11/15 9:35 PM) Negative 11/12/2015 [facility] HEMATOLOGY PT 12.9 s 12.0 - 14.7 11/12/2015 [facility] HEMATOLOGY INR 0.94 0.85 - 1.17 11/12/2015 [facility] Platelet 338 K/CMM 133 - 450 11/12/2015 [facility] MCHC 32.8 g/dL 32.0 - 36.0 11/12/2015 [facility] RDW 14.3 % 11.5 - 14.5 11/12/2015 [facility] MPV 9.0 fL 7.4 - 10.4 11/12/2015 [facility] Hct 39.3 % 36.0 - 48.0 11/12/2015 [facility] Hgb 12.9 g/dL 12.0 - 16.0 11/12/2015 [facility] RBC 4.35 M/CMM 4.20 - 5.40 11/12/2015 [facility] MCH 29.6 pg 27.0 - 31.0 11/12/2015 [facility] MCV 90.2 fL 80.0 - 98.0 11/12/2015 [facility] WBC 8.8 K/CMM 3.7 - 10.4 11/12/2015 [facility] Monocytes # 0.7 K/CMM 0.0 - 0.8 11/12/2015 [facility] Segs-Bands # 5.4 K/CMM 1.5 - 8.1 11/12/2015 [facility] Lymphocytes # 2.4 K/CMM 1.0 - 5.5 11/12/2015 [facility] Eosinophils # 0.3 K/CMM 0.0 - 0.5 11/12/2015 [facility] Basophils # 0.1 K/CMM 0.0 - 0.2 11/12/2015 [facility] Lymphocytes 27.0 % 20.0 - 40.0 11/12/2015 [facility] Monocytes 8.1 % 2.0 - 12.0 11/12/2015 [facility] Eosinophils 3.0 % 0.0 - 4.0 11/12/2015 [facility] Basophils 1.0 % 0.0 - 1.0 11/12/2015 [facility] Segs 60.9 % 45.0 - 75.0 11/12/2015 [facility] Hip 1 view DX Hip 1 view DX Patient Name: KATE HERNÁNDEZ : 1965; Age: 50 years y/o Female MR: [id number] Study: AP view of the right hip dated 11/11/2015 at 2356 Clinical Indication: Right hip pain Post Trauma; Comparison: 11/11/2015 at 2145 Patient is status post right total hip replacement. The acetabular component sits over the superior right acetabular area with the lateral aspect of the acetabular component not covered by bone. There has been interval relocation of the previously described right hip dislocation. No fracture identified. SL: [id number] 11/12/2015 - - Read by: Kevin Black MD Dictated Date/time: 11/12/15 00:07 Electronically Signed by: Kevin Black MD 11/12/15 00:08 FINAL REPORT [facility] Hip 2/3 views uni DX Hip 2/3 views uni DX RIGHT HIP, 2 VIEWS HISTORY: Pain and swelling. COMPARISON: 03/02/2011. FINDINGS: There is dislocation of a long stem total right hip arthroplasty. The dislocated femoral head component is displaced superiorly and likely posteriorly. No evidence of hardware loosening. No fracture is seen. SL: [id number] 11/11/2015 - - Read by: Arnoldo Vitale MD Dictated Date/time: 11/11/15 22:03 Electronically Signed by: Arnoldo Vitale MD 11/11/15 22:05 FINAL REPORT [facility] Pelvis AP DX Pelvis AP DX PELVIS, ONE VIEW HISTORY: Arthritis. COMPARISON: Right hip radiography dated 11/11/2015 FINDINGS: Dislocated right hip arthroplasty again noted. No fracture is seen. SL: [id number] 11/11/2015 - - Read by: Arnoldo Vitale MD Dictated Date/time: 11/11/15 22:05 Electronically Signed by: Arnoldo Vitale MD 11/11/15 22:06 FINAL REPORT [facility] ELECTROLYTES AGAP 11.7 meq/L 10.0 - 20.0 09/27/2015 [facility] ELECTROLYTES eGFR 60 mL/min/1.73m2 09/27/2015 Result Comment: The eGFR is calculated using the CKD-EPI formula. In most young, healthy individuals the eGFR will be >90 mL/min/1.73m2. The eGFR declines with age. An eGFR of 60-89 may be normal in some populations, particularly the elderly, for whom the CKD-EPI formula has not been extensively validated. Use of the eGFR is not recommended in the following populations: Individuals with unstable creatinine concentrations, including patients and those with serious co-morbid conditions. Patients with extremes in muscle mass or diet. The data above are obtained from the National Kidney Disease Education Program (NKDEP) which additionally recommends that when the eGFR is used in patients with extremes of body mass index for purposes of drug dosing, the eGFR should be multiplied by the estimated BMI. [facility] ELECTROLYTES BUN 33 mg/dL 7 - 22 09/27/2015 [facility] ELECTROLYTES Creatinine Lvl 1.07 mg/dL 0.50 - 1.40 09/27/2015 [facility] ELECTROLYTES Glucose Lvl 94 mg/dL 70 - 99 09/27/2015 [facility] ELECTROLYTES CO2 26 meq/L 24 - 32 09/27/2015 [facility] ELECTROLYTES Calcium Lvl 8.9 mg/dL 8.5 - 10.5 09/27/2015 [facility] ELECTROLYTES Chloride Lvl 107 meq/L 95 - 109 09/27/2015 [facility] ELECTROLYTES Potassium Lvl 3.7 meq/L 3.5 - 5.1 09/27/2015 [facility] ELECTROLYTES Sodium Lvl 141 meq/L 135 - 145 09/27/2015 [facility] HEMATOLOGY Basophils # 0.1 K/CMM 0.0 - 0.2 09/27/2015 [facility] HEMATOLOGY Monocytes # 0.8 K/CMM 0.0 - 0.8 09/27/2015 [facility] HEMATOLOGY Eosinophils # 0.2 K/CMM 0.0 - 0.5 09/27/2015 [facility] Lymphocytes # 1.7 K/CMM 1.0 - 5.5 09/27/2015 [facility] Basophils 0.9 % 0.0 - 1.0 09/27/2015 [facility] HEMATOLOGY Monocytes 12.9 % 2.0 - 12.0 09/27/2015 [facility] HEMATOLOGY Eosinophils 2.6 % 0.0 - 4.0 09/27/2015 [facility] Lymphocytes 27.1 % 20.0 - 40.0 09/27/2015 [facility] Segs 56.5 % 45.0 - 75.0 09/27/2015 [facility] Segs-Bands # 3.5 K/CMM 1.5 - 8.1 09/27/2015 [facility] RBC 4.23 M/CMM 4.20 - 5.40 09/27/2015 [facility] Hgb 12.5 g/dL 12.0 - 16.0 09/27/2015 [facility] Hct 38.1 % 36.0 - 48.0 09/27/2015 [facility] MCV 89.9 fL 80.0 - 98.0 09/27/2015 [facility] MCH 29.5 pg 27.0 - 31.0 09/27/2015 [facility] WBC 6.3 K/CMM 3.7 - 10.4 09/27/2015 [facility] MPV 8.2 fL 7.4 - 10.4 09/27/2015 [facility] MCHC 32.8 g/dL 32.0 - 36.0 09/27/2015 [facility] RDW 15.2 % 11.5 - 14.5 09/27/2015 [facility] Platelet 297 K/CMM 133 - 450 09/27/2015 [facility] Tibia fibula series DX Tibia fibula series DX Study: Right tibia/fibula, 4 views Clinical Indication: Right lower extremity pain Comparison: None FINDINGS: Multiple views of the right tibia/fibula show no acute bony fracture, joint dislocation, or suspicious osseous erosion. Soft tissue changes of total knee arthroplasty and patellar resurfacing are seen. Additional changes of lateral plate and screw fixation of the distal fibula are also seen. Mild diffuse soft tissue swelling is present. No soft tissue gas is seen. IMPRESSION: No acute bony abnormality of the right tibia/fibula and no radiographic evidence of osteomyelitis. SL: [id number] 09/26/2015 - - Read by: Julius Bhatt MD Dictated Date/time: 09/26/15 21:51 Electronically Signed by: Julius Bhatt MD 09/26/15 21:53 FINAL REPORT [facility] MCV 88.8 fL 80.0 - 98.0 03/23/2015 [facility] Hct 33.6 % 36.0 - 48.0 03/23/2015 [facility] Hgb 10.6 g/dL 12.0 - 16.0 03/23/2015 [facility] MPV 7.9 fL 7.4 - 10.4 03/23/2015 [facility] MCHC 31.5 g/dL 32.0 - 36.0 03/23/2015 [facility] MCH 28.0 pg 27.0 - 31.0 03/23/2015 [facility] WBC 11.9 K/CMM 3.7 - 10.4 03/23/2015 [facility] HEMATOLOGY RBC 3.79 M/CMM 4.20 - 5.40 03/23/2015 [facility] HEMATOLOGY Platelet 489 K/CMM 133 - 450 03/23/2015 [facility] HEMATOLOGY RDW 16.4 % 11.5 - 14.5 03/23/2015 [facility] HEMATOLOGY Monocytes 9.0 % 2.0 - 12.0 03/23/2015 [facility] HEMATOLOGY Lymphocytes # 1.7 K/CMM 1.0 - 5.5 03/23/2015 [facility] HEMATOLOGY Segs-Bands # 9.0 K/CMM 1.5 - 8.1 03/23/2015 [facility] HEMATOLOGY Basophils 1.0 % 0.0 - 1.0 03/23/2015 [facility] HEMATOLOGY Eosinophils 0.6 % 0.0 - 4.0 03/23/2015 [facility] HEMATOLOGY Basophils # 0.1 K/CMM 0.0 - 0.2 03/23/2015 [facility] HEMATOLOGY Eosinophils # 0.1 K/CMM 0.0 - 0.5 03/23/2015 [facility] Lymphocytes 14.0 % 20.0 - 40.0 03/23/2015 [facility] HEMATOLOGY Segs 75.4 % 45.0 - 75.0 03/23/2015 [facility] Monocytes # 1.1 K/CMM 0.0 - 0.8 03/23/2015 [facility] CHEM PANEL eGFR 88 mL/min/1.73m2 03/22/2015 Result Comment: The eGFR is calculated using the CKD-EPI formula. In most young, healthy individuals the eGFR will be >90 mL/min/1.73m2. The eGFR declines with age. An eGFR of 60-89 may be normal in some populations, particularly the elderly, for whom the CKD-EPI formula has not been extensively validated. Use of the eGFR is not recommended in the following populations: Individuals with unstable creatinine concentrations, including patients and those with serious co-morbid conditions. Patients with extremes in muscle mass or diet. The data above are obtained from the National Kidney Disease Education Program (NKDEP) which additionally recommends that when the eGFR is used in patients with extremes of body mass index for purposes of drug dosing, the eGFR should be multiplied by the estimated BMI. [facility] CHEM PANEL Chloride Lvl 101 meq/L 95 - 109 03/22/2015 [facility] CHEM PANEL Potassium Lvl 4.7 meq/L 3.5 - 5.1 03/22/2015 [facility] CHEM PANEL CO2 27 meq/L 24 - 32 03/22/2015 [facility] CHEM PANEL Albumin Lvl 2.8 g/dL 3.5 - 5.0 03/22/2015 [facility] CHEM PANEL ALT 19 unit/L 0 - 65 03/22/2015 [facility] CHEM PANEL Total Protein 6.1 g/dL 6.4 - 8.4 03/22/2015 [facility] CHEM PANEL Calcium Lvl 8.6 mg/dL 8.5 - 10.5 03/22/2015 [facility] CHEM PANEL A/G Ratio 0.8 0.7 - 1.6 03/22/2015 [facility] CHEM PANEL AST 15 unit/L 0 - 37 03/22/2015 [facility] CHEM PANEL Alk Phos 86 unit/L 39 - 136 03/22/2015 [facility] CHEM PANEL Bili Total 0.3 mg/dL 0.2 - 1.3 03/22/2015 [facility] CHEM PANEL B/C Ratio 23 6 - 25 03/22/2015 [facility] CHEM PANEL Globulin 3.3 g/dL 2.0 - 4.0 03/22/2015 [facility] CHEM PANEL AGAP 12.7 meq/L 10.0 - 20.0 03/22/2015 [facility] CHEM PANEL Glucose Lvl 87 mg/dL 70 - 99 03/22/2015 [facility] CHEM PANEL BUN 18 mg/dL 7 - 22 03/22/2015 [facility] CHEM PANEL Sodium Lvl 136 meq/L 135 - 145 03/22/2015 [facility] CHEM PANEL Creatinine Lvl 0.79 mg/dL 0.50 - 1.40 03/22/2015 [facility] HEMATOLOGY Segs 69.9 % 45.0 - 75.0 03/22/2015 [facility] HEMATOLOGY Lymphocytes 18.6 % 20.0 - 40.0 03/22/2015 [facility] HEMATOLOGY Basophils 0.4 % 0.0 - 1.0 03/22/2015 [facility] HEMATOLOGY Eosinophils 0.7 % 0.0 - 4.0 03/22/2015 [facility] HEMATOLOGY Monocytes 10.4 % 2.0 - 12.0 03/22/2015 [facility] HEMATOLOGY Monocytes # 1.1 K/CMM 0.0 - 0.8 03/22/2015 [facility] HEMATOLOGY Eosinophils # 0.1 K/CMM 0.0 - 0.5 03/22/2015 [facility] HEMATOLOGY Segs-Bands # 7.6 K/CMM 1.5 - 8.1 03/22/2015 [facility] HEMATOLOGY Lymphocytes # 2.0 K/CMM 1.0 - 5.5 03/22/2015 [facility] HEMATOLOGY Platelet 497 K/CMM 133 - 450 03/22/2015 [facility] RDW 15.9 % 11.5 - 14.5 03/22/2015 [facility] MCHC 32.0 g/dL 32.0 - 36.0 03/22/2015 [facility] MCH 28.3 pg 27.0 - 31.0 03/22/2015 [facility] MPV 7.6 fL 7.4 - 10.4 03/22/2015 [facility] HEMATOLOGY MCV 88.3 fL 80.0 - 98.0 03/22/2015 [facility] Hgb 10.2 g/dL 12.0 - 16.0 03/22/2015 [facility] RBC 3.61 M/CMM 4.20 - 5.40 03/22/2015 [facility] WBC 10.8 K/CMM 3.7 - 10.4 03/22/2015 [facility] Hct 31.9 % 36.0 - 48.0 03/22/2015 [facility] URINE AND STOOL UA Nitrite Negative (03/21/15 5:55 PM) Negative 03/21/2015 [facility] URINE AND STOOL UA Leuk Est Trace *ABN* (03/21/15 5:55 PM) Negative 03/21/2015 [facility] URINE AND STOOL UA Bili Negative *NA* (03/21/15 5:55 PM) Negative 03/21/2015 [facility] URINE AND STOOL UA Blood Negative (03/21/15 5:55 PM) Negative 03/21/2015 [facility] URINE AND STOOL UA Urobilinogen 0.2 EU/dL 0.1 - 1.0 03/21/2015 [facility] URINE AND STOOL UA Protein Negative (03/21/15 5:55 PM) Negative 03/21/2015 [facility] URINE AND STOOL UA Glucose Negative (03/21/15 5:55 PM) Negative 03/21/2015 [facility] URINE AND STOOL UA Ketones Negative *NA* (03/21/15 5:55 PM) Negative 03/21/2015 [facility] URINE AND STOOL UA pH 6.5 5.0 - 8.0 03/21/2015 [facility] URINE AND STOOL UA Turbidity Clear (03/21/15 5:55 PM) Clear 03/21/2015 [facility] URINE AND STOOL UA Spec Grav 1.010 <=1.030 03/21/2015 [facility] URINE AND STOOL UA Color Yellow *NA* (03/21/15 5:55 PM) Yellow 03/21/2015 [facility] URINE AND STOOL UA Bacteria Occasional /HPF None Seen /HPF 03/21/2015 [facility] URINE AND STOOL UA Mucus Few /LPF None Seen /LPF 03/21/2015 [facility] URINE AND STOOL UA WBC 1 /HPF 0 - 5 03/21/2015 [facility] URINE AND STOOL UA Hyal Cast 4 /LPF 0 - 2 03/21/2015 [facility] URINE AND STOOL UA Sq Epi Occasional /LPF Few /LPF 03/21/2015 [facility] CHEM PANEL eGFR 67 mL/min/1.73m2 03/21/2015 Result Comment: The eGFR is calculated using the CKD-EPI formula. In most young, healthy individuals the eGFR will be >90 mL/min/1.73m2. The eGFR declines with age. An eGFR of 60-89 may be normal in some populations, particularly the elderly, for whom the CKD-EPI formula has not been extensively validated. Use of the eGFR is not recommended in the following populations: Individuals with unstable creatinine concentrations, including patients and those with serious co-morbid conditions. Patients with extremes in muscle mass or diet. The data above are obtained from the National Kidney Disease Education Program (NKDEP) which additionally recommends that when the eGFR is used in patients with extremes of body mass index for purposes of drug dosing, the eGFR should be multiplied by the estimated BMI. [facility] CHEM PANEL Creatinine Lvl 0.99 mg/dL 0.50 - 1.40 03/21/2015 [facility] HEMATOLOGY Platelet 501 K/CMM 133 - 450 03/21/2015 [facility] Knee 1-2 Views unilateral DX Knee 1-2 Views unilateral DX RIGHT KNEE (2 views) HISTORY: status post right total knee arthroplasty COMMENT: Frontal and lateral radiographs of the right knee were obtained following total knee arthroplasty. The prosthesis appears to be in good position. There is no evidence of unexpected fracture. There is postoperative soft tissue and joint gas. There are anterior surgical skin ricardo. CONCLUSION: Status post right total knee arthroplasty. The prosthesis appears to be in good position. There is no evidence of unexpected fracture. Coding: Knee AP and lateral CPT code: 86365 SL: 13 Gwyn Mora M.D. 03/21/2015 - - Read by: Gwyn Mora MD Dictated Date/time: 03/21/15 11:05 Electronically Signed by: Gwyn Mora MD 03/21/15 11:05 FINAL REPORT [facility] BLOOD BANK RESULTS ABO/Rh B POS 03/16/2015 [facility] BLOOD BANK RESULTS Antibody Scrn Negative (03/16/15 10:04 AM) 03/16/2015 [facility] ELECTROLYTES AGAP 12.1 meq/L 10.0 - 20.0 03/16/2015 [facility] ELECTROLYTES BUN 10 mg/dL 7 - 22 03/16/2015 [facility] ELECTROLYTES Glucose Lvl 101 mg/dL 70 - 99 03/16/2015 [facility] ELECTROLYTES Chloride Lvl 101 meq/L 95 - 109 03/16/2015 [facility] ELECTROLYTES CO2 28 meq/L 24 - 32 03/16/2015 [facility] ELECTROLYTES Potassium Lvl 4.1 meq/L 3.5 - 5.1 03/16/2015 [facility] ELECTROLYTES Calcium Lvl 9.4 mg/dL 8.5 - 10.5 03/16/2015 [facility] ELECTROLYTES Sodium Lvl 137 meq/L 135 - 145 03/16/2015 [facility] ELECTROLYTES eGFR 88 mL/min/1.73m2 03/16/2015 Result Comment: The eGFR is calculated using the CKD-EPI formula. In most young, healthy individuals the eGFR will be >90 mL/min/1.73m2. The eGFR declines with age. An eGFR of 60-89 may be normal in some populations, particularly the elderly, for whom the CKD-EPI formula has not been extensively validated. Use of the eGFR is not recommended in the following populations: Individuals with unstable creatinine concentrations, including patients and those with serious co-morbid conditions. Patients with extremes in muscle mass or diet. The data above are obtained from the National Kidney Disease Education Program (NKDEP) which additionally recommends that when the eGFR is used in patients with extremes of body mass index for purposes of drug dosing, the eGFR should be multiplied by the estimated BMI. [facility] ELECTROLYTES Creatinine Lvl 0.79 mg/dL 0.50 - 1.40 03/16/2015 [facility] HEMATOLOGY RDW 16.1 % 11.5 - 14.5 03/16/2015 [facility] HEMATOLOGY MPV 8.2 fL 7.4 - 10.4 03/16/2015 [facility] HEMATOLOGY WBC 13.0 K/CMM 3.7 - 10.4 03/16/2015 [facility] HEMATOLOGY Hct 38.9 % 36.0 - 48.0 03/16/2015 [facility] HEMATOLOGY Hgb 12.2 g/dL 12.0 - 16.0 03/16/2015 [facility] HEMATOLOGY RBC 4.36 M/CMM 4.20 - 5.40 03/16/2015 [facility] MCH 27.9 pg 27.0 - 31.0 03/16/2015 [facility] HEMATOLOGY MCV 89.4 fL 80.0 - 98.0 03/16/2015 [facility] MCHC 31.3 g/dL 32.0 - 36.0 03/16/2015 [facility] HEMATOLOGY PTT 32.7 s 22.9 - 35.8 03/16/2015 [facility] HEMATOLOGY INR 1.00 0.85 - 1.17 03/16/2015 [facility] PT 13.5 s 12.0 - 14.7 03/16/2015 [facility] HEMATOLOGY Segs 72.8 % 45.0 - 75.0 03/16/2015 [facility] HEMATOLOGY Lymphocytes 12.1 % 20.0 - 40.0 03/16/2015 [facility] HEMATOLOGY Monocytes 14.4 % 2.0 - 12.0 03/16/2015 [facility] HEMATOLOGY Lymphocytes # 1.6 K/CMM 1.0 - 5.5 03/16/2015 [facility] HEMATOLOGY Segs-Bands # 9.4 K/CMM 1.5 - 8.1 03/16/2015 [facility] Monocytes # 1.9 K/CMM 0.0 - 0.8 03/16/2015 [facility] HEMATOLOGY Basophils # 0.1 K/CMM 0.0 - 0.2 03/16/2015 [facility] HEMATOLOGY Basophils 0.4 % 0.0 - 1.0 03/16/2015 [facility] HEMATOLOGY Eosinophils 0.3 % 0.0 - 4.0 03/16/2015 [facility] URINE AND STOOL UA RBC 8 /HPF 0 - 2 03/16/2015 [facility] URINE AND STOOL UA Sq Epi Few /LPF Few /LPF 03/16/2015 [facility] URINE AND STOOL UA WBC null 0 - 5 03/16/2015 [facility] URINE AND STOOL UA Amorph Wanda Occasional /HPF None Seen /HPF 03/16/2015 [facility] URINE AND STOOL UA Mucus Few /LPF None Seen /LPF 03/16/2015 [facility] URINE AND STOOL UA Protein Negative (03/16/15 10:04 AM) Negative 03/16/2015 [facility] URINE AND STOOL UA Spec Grav 1.010 <=1.030 03/16/2015 [facility] URINE AND STOOL UA pH 6.5 5.0 - 8.0 03/16/2015 [facility] URINE AND STOOL UA Blood Moderate *ABN* (03/16/15 10:04 AM) Negative 03/16/2015 [facility] URINE AND STOOL UA Urobilinogen 0.2 EU/dL 0.1 - 1.0 03/16/2015 [facility] URINE AND STOOL UA Ketones Negative *NA* (03/16/15 10:04 AM) Negative 03/16/2015 [facility] URINE AND STOOL UA Bili Negative *NA* (03/16/15 10:04 AM) Negative 03/16/2015 [facility] URINE AND STOOL UA Turbidity Slight *ABN* (03/16/15 10:04 AM) Clear 03/16/2015 [facility] URINE AND STOOL UA Color Yellow *NA* (03/16/15 10:04 AM) Yellow 03/16/2015 [facility] URINE AND STOOL UA Glucose Negative (03/16/15 10:04 AM) Negative 03/16/2015 [facility] URINE AND STOOL UA Nitrite Positive *ABN* (03/16/15 10:04 AM) Negative 03/16/2015 [facility] URINE AND STOOL UA Leuk Est Large *ABN* (03/16/15 10:04 AM) Negative 03/16/2015 [facility] URINE AND STOOL Micro? Performed (03/16/15 10:04 AM) 03/16/2015 [facility] Knee wo contrast MRI Knee wo contrast MRI PROCEDURE: MR Knee without contrast REASON FOR EXAM: See Clinic Indication CLINICAL INDICATION: 836.1 TEAR OF LATERAL CARTILAGE OR MENISCUS OF KNEE, CURRENT, 48-year-old female reports right knee pain for approximately one year MR RIGHT KNEE COMPARISON: None available MENISCI 1. The medial meniscus is intact 2. Horizontal cleavage tear throughout the anterior horn and body of the lateral meniscus with a very large complex multiloculated lateral paramensical cyst. The cyst is somewhat poorly marginated but measures approximately 1.1 x 2.0 cm in coronal cross-section and extends approximately 3.8 cm from anterior to posterior. CARTILAGE 3. Mild diffuse medial compartment cartilage thinning without discrete cartilage defect. 4. Moderate diffuse compartment cartilage thinning with mild subchondral cystic change near the tibial spines compatible with occult cartilage fissuring. 5. Mild/moderate diffuse irregular cartilage thinning of the patella without definite discrete full-thickness cartilage defect. CRUCIATE LIGAMENTS 6. The anterior cruciate ligament is intact. 7. The posterior cruciate ligament is intact. STABILIZERS 8. The medial collateral ligament complex is preserved. 9. The lateral collateral ligament complex is preserved. EXTENSOR MECHANISM 10. Intact patellar and quadriceps tendons. 11. Moderate lateral patellar tilting. OTHER 12. No fracture or marrow edema 13. No joint effusion or popliteal cyst. IMPRESSION: 1. Horizontal cleavage tear of the body and anterior horn of the lateral meniscus with a large complex multiloculated lateral paramensical cyst. 2. Mild/moderate tricompartmental chondromalacia. Thank you for referring your patient to [facility] and [facility]. SL: 17 03/24/2014 - - Read by: Arnoldo Vitale MD Dictated Date/time: 03/24/14 14:04 Electronically Signed by: Arnoldo Vitale MD 03/24/14 14:16 FINAL REPORT [facility] Facial series Facial series NAME: KATE HERNÁNDEZ : 1965 SEX: F Ordering Physician: Gil Muhammad Six view examination of the facial bones : Jul 04, 2013 02:38:00 AM. CLINICAL INDICATION: Trauma. Comparison Examination: None. FINDINGS: There is an air-fluid level to the left maxillary sinus. There is air in the superior left orbit. This suggests an inferior wall left orbital fracture not appreciated on this study. Facial bone CT may be helpful for further evaluation. There is a mild nasal septal deviation to the left. No other facial bone abnormality identified. SL: 14 07/04/2013 - - Read by: Kevin Black Dictated Date/time: 07/04/13 03:50 Electronically Signed by: Kevin Black MD 07/04/13 03:53 FINAL REPORT [facility] Digital Mammo Screening Tal MA Digital Mammo Screening Tal MA - DIGITAL MAMMO SCREENING TAL MA BILATERAL DIGITAL SCREENING MAMMOGRAM WITH CAD: 03/05/2013 CLINICAL: Routine. Current study was evaluated with a Computer Aided Detection (CAD) system. Comparison is made to exams dated: 02/06/2012 mammogram, 01/23/2011 mammogram - [facility], 09/29/2009 mammogram and 09/08/2009 mammogram - [facility]. Current study contains 4 films. There are scattered fibroglandular elements in both breasts that could obscure a lesion on mammography. There are benign calcifications in the right breast. There also is a benign calcification in the left breast. No significant masses, calcifications, or other findings are seen in either breast. There has been no significant interval change. IMPRESSION: BENIGN There is no mammographic evidence of malignancy. A screening mammogram in one year is recommended. Petey Little M.D. btp/penrad:03/08/2013 11:31:26 Media Developer: Susan Arriaga, [facility] This exam was dictated and interpreted by [id number] at [facility], 13. letter sent: Bilateral Benign Mammogram BI-RADS: 2 Benign 03/05/2013 - - Read by: Peety Litlte Dictated Date/time: 03/08/13 11:31 Electronically Signed by: Petey Little MD 03/08/13 11:31 FINAL REPORT [facility] CHEMISTRY AGAP 11.3 meq/L 10.0 - 20.0 08/07/2012 Normal [facility] CHEMISTRY CO2 29 meq/L 24 - 32 08/07/2012 Normal [facility] CHEMISTRY Sodium Lvl 142 meq/L 135 - 145 08/07/2012 Normal [facility] CHEMISTRY Chloride Lvl 106 meq/L 95 - 109 08/07/2012 Normal [facility] CHEMISTRY Potassium Lvl 4.3 meq/L 3.5 - 5.1 08/07/2012 Normal [facility] Vital Signs Vital Sign Value Date Comments Source Respitory Rate 16 08/27/2017 [facility] Systolic (mm Hg) 127 08/27/2017 [facility] Diastolic (mm Hg) 81 08/27/2017 [facility] Systolic (mm Hg) 127 08/26/2017 [facility] Diastolic (mm Hg) 90 08/26/2017 [facility] Respitory Rate 15 08/26/2017 [facility] Respitory Rate 18 08/26/2017 [facility] Systolic (mm Hg) 125 08/26/2017 [facility] Diastolic (mm Hg) 98 08/26/2017 [facility] Temperature Oral (F) 97.8 F 08/25/2017 [facility] Heart Rate 97 08/25/2017 [facility] Weight 93.727 08/25/2017 [facility] BMI Calculated 33.35 08/25/2017 [facility] Height 167.64 cm 08/25/2017 [facility] Temperature Oral (F) 98.2 F 07/24/2017 [facility] Systolic (mm Hg) 150 07/24/2017 [facility] Diastolic (mm Hg) 101 07/24/2017 [facility] Respitory Rate 20 07/24/2017 [facility] Heart Rate 107 07/24/2017 [facility] Weight 85.909 07/24/2017 [facility] Height 165.1 cm 07/24/2017 [facility] BMI Calculated 31.52 07/24/2017 [facility] Temperature Oral (F) 98.2 F 07/24/2017 [facility] Respitory Rate 20 07/24/2017 [facility] Heart Rate 108 07/24/2017 [facility] Systolic (mm Hg) 153 07/24/2017 [facility] Diastolic (mm Hg) 95 07/24/2017 [facility] Systolic (mm Hg) 118 07/03/2017 [facility] Diastolic (mm Hg) 81 07/03/2017 [facility] Respitory Rate 18 07/03/2017 [facility] Heart Rate 88 07/03/2017 [facility] Temperature Oral (F) 98.0 F 07/03/2017 [facility] Heart Rate 89 07/03/2017 [facility] Respitory Rate 18 07/03/2017 [facility] Systolic (mm Hg) 110 07/03/2017 [facility] Diastolic (mm Hg) 73 07/03/2017 [facility] Temperature Oral (F) 98.1 F 07/03/2017 [facility] Temperature Oral (F) 98.4 F 07/03/2017 [facility] Heart Rate 92 07/03/2017 [facility] Respitory Rate 18 07/03/2017 [facility] Systolic (mm Hg) 127 07/03/2017 [facility] Diastolic (mm Hg) 83 07/03/2017 [facility] BMI Calculated 32.02 06/13/2017 [facility] Weight 87.273 06/13/2017 [facility] Height 165.1 cm 06/13/2017 [facility] Respitory Rate 52 12/29/2015 [facility] Systolic (mm Hg) 176 12/29/2015 [facility] Diastolic (mm Hg) 78 12/29/2015 [facility] Systolic (mm Hg) 169 12/29/2015 [facility] Diastolic (mm Hg) 95 12/29/2015 [facility] Respitory Rate 24 12/29/2015 [facility] Respitory Rate 19 12/29/2015 [facility] Systolic (mm Hg) 185 12/29/2015 [facility] Diastolic (mm Hg) 103 12/29/2015 [facility] Temperature Oral (F) 98.2 F 12/28/2015 [facility] Heart Rate 80 12/28/2015 [facility] Systolic (mm Hg) 153 11/13/2015 [facility] Diastolic (mm Hg) 106 11/13/2015 [facility] Heart Rate 81 11/13/2015 [facility] Temperature Oral (F) 97.9 F 11/13/2015 [facility] Respitory Rate 18 11/13/2015 [facility] Respitory Rate 14 11/13/2015 [facility] Systolic (mm Hg) 172 11/13/2015 [facility] Diastolic (mm Hg) 97 11/13/2015 [facility] Respitory Rate 18 11/13/2015 [facility] Temperature Oral (F) 97.6 F 11/13/2015 [facility] Heart Rate 67 11/13/2015 [facility] Systolic (mm Hg) 145 11/13/2015 [facility] Diastolic (mm Hg) 85 11/13/2015 [facility] Heart Rate 69 11/13/2015 [facility] Temperature Oral (F) 97.8 F 11/13/2015 [facility] Height 167.64 cm 11/12/2015 [facility] BMI Calculated 31.7 11/12/2015 [facility] Weight 89.091 11/12/2015 [facility] Systolic (mm Hg) 144 09/27/2015 [facility] Diastolic (mm Hg) 94 09/27/2015 [facility] Respitory Rate 18 09/27/2015 [facility] Heart Rate 86 09/27/2015 [facility] Temperature Oral (F) 98.6 F 09/27/2015 [facility] BMI Calculated 33.35 09/27/2015 [facility] Weight 90.909 09/27/2015 [facility] Height 165.1 cm 09/27/2015 [facility] Temperature Oral (F) 98.4 F 09/27/2015 [facility] Systolic (mm Hg) 155 09/27/2015 [facility] Diastolic (mm Hg) 80 09/27/2015 [facility] Heart Rate 92 09/27/2015 [facility] Respitory Rate 18 09/27/2015 [facility] Respitory Rate 16 03/23/2015 [facility] Systolic (mm Hg) 110 03/23/2015 [facility] Diastolic (mm Hg) 78 03/23/2015 [facility] Temperature Oral (F) 98.7 F 03/23/2015 [facility] Heart Rate 92 03/23/2015 [facility] Respitory Rate 16 03/23/2015 [facility] Systolic (mm Hg) 128 03/23/2015 [facility] Diastolic (mm Hg) 87 03/23/2015 [facility] Heart Rate 104 03/23/2015 [facility] Respitory Rate 16 03/23/2015 [facility] Temperature Oral (F) 98.1 F 03/23/2015 [facility] Temperature Oral (F) 98.9 F 03/23/2015 [facility] Systolic (mm Hg) 141 03/23/2015 [facility] Diastolic (mm Hg) 90 03/23/2015 [facility] Heart Rate 92 03/23/2015 [facility] BMI Calculated 33.35 03/16/2015 [facility] Height 165.1 cm 03/16/2015 [facility] Weight 90.909 03/16/2015 [facility] Diastolic (mm Hg) 81 07/04/2013 [facility] Systolic (mm Hg) 129 07/04/2013 [facility] Respitory Rate 18 07/04/2013 [facility] Heart Rate 80 07/04/2013 [facility] Temperature Oral (F) 98.0 F 07/04/2013 [facility] Respitory Rate 18 07/04/2013 [facility] Heart Rate 82 07/04/2013 [facility] Systolic (mm Hg) 100 07/04/2013 [facility] Diastolic (mm Hg) 87 07/04/2013 [facility] Height 167.64 cm 07/04/2013 [facility] BMI Calculated 35.58 07/04/2013 [facility] Weight 100 07/04/2013 [facility] Heart Rate 82 07/04/2013 [facility] Diastolic (mm Hg) 64 07/04/2013 [facility] Respitory Rate 18 07/04/2013 [facility] Systolic (mm Hg) 129 07/04/2013 [facility] Temperature Oral (F) 97.7 F 07/04/2013 [facility] Respitory Rate 15 08/11/2012 [facility] Systolic (mm Hg) 133 08/11/2012 [facility] Diastolic (mm Hg) 87 08/11/2012 [facility] Respitory Rate 14 08/11/2012 [facility] Systolic (mm Hg) 139 08/11/2012 [facility] Diastolic (mm Hg) 85 08/11/2012 [facility] Respitory Rate 11 08/11/2012 [facility] Systolic (mm Hg) 132 08/11/2012 [facility] Diastolic (mm Hg) 81 08/11/2012 [facility] Heart Rate 87 08/07/2012 [facility] Temperature Oral (F) 98 F 08/07/2012 [facility] Height 167.64 cm 08/07/2012 [facility] Weight 100 08/07/2012 [facility] Height 167.64 cm 12/10/2011 [facility] Weight 102.273 12/10/2011 [facility] Encounters Location Location Details Encounter Type Encounter Number Reason For Visit Attending Provider ADM Date DC Date Status Source [facility] Outpatient [id number] ROUTINE JAYENDRA LOLY 01/23/2011 01/23/2011 Active [facility]patient [id number] BULGING DISC CANDIDO MONACO 09/05/2011 Active [facility] Emergency [id number] BACK PAIN GIL JONATHAN 12/10/2011 Active [facility] DS [id number] JESSICA BRAUN 08/11/2012 08/11/2012 Active [facility] Outpatient [id number] SCREENING MAMMO SONIA STEPHANIE 03/05/2013 03/05/2013 Active [facility] [id number] Gil Muhammad 07/04/2013 07/04/2013 [facility] Outpatient [id number] Candido Monaco 03/24/2014 03/25/2014 [facility] Inpatient [id number] Candido Monaco 03/21/2015 03/23/2015 [facility] Therapy Patients [id number] Candido Monaco 03/24/2015 04/23/2015 [facility] Outpatient [id number] TIARA PRYOR 09/26/2015 Active [facility] [id number] Ameenafloridalma Chambers 09/27/2015 09/27/2015 [facility] OBS Observation Patient [id number] Artemio Debo 11/12/2015 11/13/2015 [facility] Emergency [id number] Arnoldo Felton 12/28/2015 12/29/2015 [facility] Inpatient [id number] Candido Monaco 07/01/2017 07/03/[address] [facility] OP Therapy Patients [id number] Candido Monaco 07/04/2017 07/04/2017 [facility] Outpatient [id number] Omari Pryor 07/17/2017 07/18/2017 [facility] Emergency [id number] Tatiana Guzman 07/24/2017 07/24/2017 [facility] Day Surgery [id number] Candido Monaco 08/26/2017 08/27/[address] [facility] OP Therapy Patients [id number] Candido Monaco 10/28/2017 11/27/2017 [facility] Neuro[facility] Phone Message [id number] 02/23/2018 02/25/2018 [facility] [id number] [facility] 03/10/[address] [facility] [id number] ESTER LUMBAR CANDIDO MONACO Cancel [facility] DS [id number] ICD 722.10 / CPT 84620 LINK BAIG II Active [facility] Outpatient [id number] BREAST LUMP OMARI PRYOR Active [facility] Procedures Procedure Code Date Perfomer Comments Source Arthroplasty of knee [id number] 02/13/2016 [facility] Arthroplasty of knee 56596566 02/13/2016 [facility] Arthroplasty of knee 92373228 02/13/2016 [facility] Arthroplasty of the hip 29533178 05/23/2009 [facility] Arthroplasty of the hip 56534785 05/23/2009 [facility] Arthroplasty of the hip 72182882 05/23/2009 [facility] Arthroplasty of the hip 300793284 05/23/2009 [facility] Arthroplasty of the hip 96590191 05/23/2009 [facility] Arthroplasty of the hip 56813261 05/23/2009 [facility] Arthroscopic knee operation 571238238 [facility] Breast biopsy and related procedures [id number] [facility] section<sup>1</sup> 08729583 x2 1989, 1991 [facility] Laminectomy and discectomy 837453532 [facility] Open reduction and fixation of fracture 556638129 [facility] Arthroscopic knee operation 511916385 [facility] Breast biopsy and related procedures 939737055 [facility] section<sup>1</sup> 73830133 x2 1991 [facility] Laminectomy and discectomy 857433049 [facility] Open reduction and fixation of fracture 751962545 [facility] Arthroscopic knee operation 064587719 [facility] Breast biopsy and related procedures 856841351 [facility] section<sup>1</sup> 52537452 x2 1991 [facility] Laminectomy and discectomy 919215798 [facility] Open reduction and fixation of fracture 979388705 [facility] Breast biopsy and related procedures 084087521 [facility] section <sup>1</sup> 89361846 1x2 1991 [facility] Laminectomy and discectomy 3425764050 [facility] Open reduction and fixation of fracture 956787267 [facility] Arthroscopic knee operation 285288131 [facility] Breast biopsy and related procedures 758411647 [facility] section<sup>1</sup> 22008769 x2 1991 [facility] Laminectomy and discectomy 163626482 [facility] Open reduction and fixation of fracture 790780414 [facility] Arthroscopic knee operation [id number] [facility] Breast biopsy and related procedures 583658607 [facility] section<sup>1</sup> 83650929 x2 1991 [facility] Laminectomy and discectomy 750502187 [facility] Open reduction and fixation of fracture 583134864 [facility]
--- OUTSIDE RECORDS SUMMARY | 2018-09-17 06:23 | XMS REPORT | Summary of Care ---
Author Author [facility] Neurosurgery [facility] Organization [facility] Neurosurgery [facility] Address Unknown Phone Unavailable Care Team Providers Care [place] [employer] Supervisor Name Role Phone Damaris Pryor PCP Encounter HQ Encntr_alijoe(FIN) [phone] Date(s): 02/23/18 - 02/24/18 [facility] Neurosurgery [facility] [address] [place] [address]- [phone] Vital Signs No data available for this section Problem List Condition Effective Dates Status Health Status Informant Arthritis(Confirmed) Active Breast lump1 02/12/12 Active Hypertension(Confirm Active ed) Meniscus Active unstable(Confirmed) 1Data migrated from [employer] on 09/10/14. Allergies, Adverse Reactions, Alerts No Known Medication Allergies Medications No data available for this section Results No data available for this section Immunizations Given and Recorded Vaccine Date Status Refusal Reason pneumococcal 23-valent vaccine 03/22/15 Given Procedures Procedure Date Related Diagnosis Body Site Status Arthroplasty of knee 02/13/16 Completed Arthroplasty of the hip 05/23/09 Completed Arthroscopic knee operation Completed Breast biopsy and related procedures Completed section1 Completed Laminectomy and discectomy Completed Open reduction and fixation of fracture Completed 1x2 1989, 1991 Social History Social History Type Response Substance Abuse Use: None. Alcohol Past Smoking Status Current every day smoker; Type: Cigarettes; Exposure to Tobacco Smoke 1/2 pk a day; Cigarette Smoking Last 365 Days Yes; Reg Smoking Cessation Counseling No entered on: 03/10/18 Assessment and Plan No data available for this section
--- OUTSIDE RECORDS SUMMARY | 2018-09-17 06:24 | XMS REPORT | Summary of Care ---
Author Author [facility] Organization [facility] Address Unknown Phone Unavailable Encounter CHELSIE Dahl(NORMAN) [id number] Date(s): 07/01/17 - 07/03/17 [facility] [id number] [place] [address]- Encounter Diagnosis Unilateral primary osteoarthritis, left knee (Final) - Unilateral primary osteoarthritis, left knee (Final) - 07/08/17 Other obesity due to excess calories (Final) - Hyperlipidemia, unspecified (Final) - Essential (primary) hypertension (Final) - Nicotine dependence, cigarettes, uncomplicated (Final) - Chronic pain syndrome (Final) - Anxiety disorder, unspecified (Final) - Osteophyte, left knee (Final) - Body mass index (BMI) 32.0-32.9, adult (Final) - Dietary counseling and surveillance (Final) - Discharge Disposition: Home or Self Care Attending Physician: Candido Lind Admitting Physician: Candido Lind Referring Physician: Candido Lind Vital Signs 1 2 3 Most recent to oldest [Reference Range]: 165.1 cm (06/13/17 3:14 PM) Height 98.0 DegF (07/03/17 12:22 PM) 98.1 DegF (07/03/17 7:35 AM) 98.4 DegF (07/03/17 4:00 AM) Temperature Oral [96.4-99.1 DegF] 118/81 mmHg (07/03/17 12:22 PM) 110/73 mmHg (07/03/17 7:35 AM) 127/83 mmHg (07/03/17 4:00 AM) Blood Pressure [90-140/60-90 mmHg] 18 BRMIN (07/03/17 12:22 PM) 18 BRMIN (07/03/17 7:35 AM) 18 BRMIN (07/03/17 4:00 AM) Respiratory Rate [14-20 BRMIN] 88 bpm (07/03/17 12:22 PM) 89 bpm (07/03/17 7:35 AM) 92 bpm (07/03/17 4:00 AM) Peripheral Pulse Rate [60-100 bpm] 87.273 kg (06/13/17 3:14 PM) Weight 32.02 m2 (06/13/17 3:14 PM) Body Mass Index Problem List Condition Effective Dates Status Health Status Informant Arthritis(Confirmed) Active Breast lump1 02/12/12 Active Hypertension(Confirm Active ed) Meniscus Active unstable(Confirmed) 1Data migrated from [employer] on 09/10/14. Allergies, Adverse Reactions, Alerts Substance Reaction Severity Status NKDA Active Medications acetaminophen (ANES) Route: IV, Drug form: INJ, ONCE, Stop date: 07/01/17 11:11:00 CDT Start Date: 07/01/17 Stop Date: 07/01/17 Status: Completed Al hydroxide/Mg hydroxide/simethicone 200 mg-200 mg-20 mg/5 mL oral suspension 30 mL, Route: PO, Drug Form: SUSP, Dosing Weight 87.273, kg, Q4H, PRN Indigestio n, Start date: 07/01/17 11:10:00 CDT, Duration: 30 day, Stop date: 07/31/17 11:0 9:00 CDT Notes: (aluminum hydroxide-magnesium hyd-simethicone [id number]/5ml 30 ml ud S US) Start Date: 07/01/17 Stop Date: 07/03/17 Status: Discontinued amLODIPine 5 mg, 1 tab, Route: PO, Drug form: TAB, Daily, Start date: 07/02/17 9:00:00 CDT, Duration: 30 day, Stop date: 07/31/17 9:00:00 CDT Notes: (Same as: Norvasc) Start Date: 07/02/17 Stop Date: 07/03/17 Status: Discontinued Ancef + sterile water 20 mL 2 gm, Route: IV, Q8H, Dosing Weight 87.273, kg, Start date: 07/01/17 17:00:00 CD T, Duration: 3 day, Stop date: 07/04/17 9:00:00 CDT, ABX Indication: Skin/Soft T issue Infection Notes: (Same As: Ancef, Kefzol) MEDICATION WASTE Product Size: 1000 mgP roduct Wasted: ___ mg Start Date: 07/01/17 Stop Date: 07/03/17 Status: Discontinued ANES acetaminophen 1,000 mg, Route: PO, Drug form: TAB, ONCE, Dosing Weight 87.273, kg, PRN Pain Sc ore 1-3, Start date: 07/01/17 11:16:00 CDT Start Date: 07/01/17 Stop Date: 07/01/17 Status: Discontinued ANES albuterol 0.083% inhalation solution 2.49 mg, Route: NEB, Q20Min, Dosing Weight 87.273, kg, PRN Wheezing, Priority: S TAT, Start date: 07/01/17 11:16:00 CDT, Duration: 30 day, Stop date: 07/31/17 11 :15:00 CDT Start Date: 07/01/17 Stop Date: 07/01/17 Status: Discontinued ANES diphenhydrAMINE 12.5 mg, Route: IVP, Drug form: INJ, Q6H, Dosing Weight 87.273, kg, PRN Itching, Start date: 07/01/17 11:16:00 CDT, Duration: 30 day, Stop date: 07/31/17 11:15: 00 CDT Start Date: 07/01/17 Stop Date: 07/01/17 Status: Discontinued ANES esmolol 10 mg, Route: IVP, Q5Min, Dosing Weight 87.273, kg, PRN Other -See Comment, Star t date: 07/01/17 11:16:00 CDT, Duration: 5 doses or times, Stop date: Limited # of times Start Date: 07/01/17 Stop Date: 07/01/17 Status: Discontinued ANES fentaNYL 25 microgram, Route: IVP, Q5Min, Dosing Weight 87.273, kg, PRN Pain Score 4-6, P riority: Routine, Start date: 07/01/17 11:16:00 CDT, Duration: 4 doses or times, Stop date: Limited # of times Start Date: 07/01/17 Stop Date: 07/01/17 Status: Completed ANES flumazenil 0.2 mg, Route: IVP, PRN, Dosing Weight 87.273, kg, PRN Benzodiazepine Reversal, Initial dose, Start date: 07/01/17 11:16:00 CDT, Duration: 30 day, Stop date: 11:15:00 CDT Start Date: 07/01/17 Stop Date: 07/01/17 Status: Discontinued ANES hydrALAZINE 10 mg, Route: IVP, Q20Min, Dosing Weight 87.273, kg, PRN Elevated BP, Start date : 07/01/17 11:16:00 CDT, Duration: 2 doses or times, Stop date: Limited # of mateo es Start Date: 07/01/17 Stop Date: 07/01/17 Status: Discontinued ANES labetalol 10 mg, Route: IVP, Q5Min, Dosing Weight 87.273, kg, PRN Elevated BP, Start date: 07/01/17 11:16:00 CDT, Duration: 5 doses or times, Stop date: Limited # of times Start Date: 07/01/17 Stop Date: 07/01/17 Status: Discontinued ANES meperidine 12.5 mg, Route: IVP, Q30Min, Dosing Weight 87.273, kg, PRN Other -See Comment, F or shivering, Start date: 07/01/17 11:16:00 CDT, Duration: 2 doses or times, Sto p date: Limited # of times Start Date: 07/01/17 Stop Date: 07/01/17 Status: Discontinued ANES naloxone 0.4 mg, Route: IVP, Q2MIN, Dosing Weight 87.273, kg, PRN Narcotic Reversal, Star t date: 07/01/17 11:16:00 CDT, Duration: 8 doses or times, Stop date: Limited # of times Start Date: 07/01/17 Stop Date: 07/01/17 Status: Discontinued ANES ondansetron 4 mg, Route: IVP, ONCE, Dosing Weight 87.273, kg, PRN Nausea & Vomiting, Start date: 07/01/17 11:16:00 CDT Start Date: 07/01/17 Stop Date: 07/01/17 Status: Discontinued ANES oxyCODONE 10 mg, Route: PO, Drug form: TAB, Q4H, Dosing Weight 87.273, kg, PRN Pain Score 7-10, Start date: 07/01/17 11:16:00 CDT, Duration: 30 day, Stop date: 07/31/17 1 1:15:00 CDT Start Date: 07/01/17 Stop Date: 07/01/17 Status: Discontinued Benicar 40 mg, 2 tab, Route: PO, Drug form: TAB, Daily, Start date: 07/02/17 9:00:00 CDT , Duration: 30 day, Stop date: 07/31/17 9:00:00 CDT Start Date: 07/02/17 Stop Date: 07/03/17 Status: Discontinued ceFAZolin (ANES) Route: IV, Drug form: INJ, ONCE, Stop date: 07/01/17 10:26:00 CDT Start Date: 07/01/17 Stop Date: 07/01/17 Status: Completed ceFAZolin (SCIP) 1 gm, Route: IVPB, Drug form: INJ, Q6H, Dosing Weight 87.273, kg, Start date: 12:00:00 CDT, Duration: 3 doses or times, Stop date: 07/02/17 0:00:00 CDT , ABX Indication: Surgical Prophylaxis Start Date: 07/01/17 Stop Date: 07/01/17 Status: Deleted celecoxib 400 mg, Route: PO, ONCALL, Dosing Weight 87.273, kg, (for CrCl > 90 mL/min), Start date: 07/01/17 8:00:00 CDT, Duration: 30 day, Stop date: 07/31/17 7:59:00 CDT Start Date: 07/01/17 Stop Date: 07/01/17 Status: Completed dexamethasone (ANES) Route: IV, Drug form: INJ, ONCE, Stop date: 07/01/17 10:31:00 CDT Start Date: 07/01/17 Stop Date: 07/01/17 Status: Completed diphenhydrAMINE 12.5 mg, 0.5 tab, Route: PO, Drug form: TAB, Q6H, Dosing Weight 87.273, kg, PRN Itching, Start date: 07/01/17 11:10:00 CDT, Duration: 30 day, Stop date: 8 11:09:00 CDT Start Date: 07/01/17 Stop Date: 07/03/17 Status: Discontinued docusate 100 mg, 1 cap, Route: PO, Drug form: CAP, BID, Dosing Weight 87.273, kg, Start d ate: 07/01/17 17:00:00 CDT, Duration: 30 day, Stop date: 07/31/17 9:00:00 CDT Notes: (Same as: Colace) (Do Not Crush) Start Date: 07/01/17 Stop Date: 07/03/17 Status: Discontinued enoxaparin 30 mg, 0.3 mL, Route: SUB-Q, Drug form: INJ, Q12H, Dosing Weight 87.273, kg, Sta rt date: 07/02/17 8:00:00 CDT, Duration: 30 day, Stop date: 07/31/17 20:00:00 CD T Notes: (Same as: Lovenox) Start Date: 07/02/17 Stop Date: 07/03/17 Status: Discontinued fentaNYL (ANES) Route: IV, Drug form: INJ, ONCE, Stop date: 07/01/17 10:31:00 CDT Start Date: 07/01/17 Stop Date: 07/01/17 Status: Completed gabapentin 300 mg, Route: PO, ONCALL, Dosing Weight 87.273, kg, Start date: 07/01/17 8:00:0 0 CDT, Duration: 30 day, Stop date: 07/31/17 7:59:00 CDT Start Date: 07/01/17 Stop Date: 07/01/17 Status: Completed gabapentin 300 mg oral capsule 300 mg, 1 cap, Route: PO, Drug form: CAP, Q8H, Dosing Weight 87.273, kg, Start d ate: 07/01/17 16:00:00 CDT, Duration: 30 day, Stop date: 07/31/17 8:00:00 CDT Notes: (Same as: Neurontin) Start Date: 07/01/17 Stop Date: 07/03/17 Status: Discontinued hydrochlorothiazide 25 mg oral tablet 25 mg, 1 tab, Route: PO, Drug form: TAB, Daily, Start date: 07/02/17 9:00:00 CDT , Duration: 30 day, Stop date: 07/31/17 9:00:00 CDT Notes: (Same as: Hydrodiuril) With food. Start Date: 07/02/17 Stop Date: 07/03/17 Status: Discontinued hydromorphone 0.3 mg, 0.3 mL, Route: IVP, Drug form: SOLN, Q4H, Dosing Weight 87.273, kg, PRN Pain Score 7-10, Start date: 07/01/17 11:10:00 CDT, Duration: 30 day, Stop date: 07/31/17 11:09:00 CDT Notes: (Same as: Dilaudid) Start Date: 07/01/17 Stop Date: 07/01/17 Status: Discontinued Keflex 500 mg oral capsule 500 mg=1 cap, PO, QID, X 10 day, # 40 cap, 0 Refill(s) Start Date: 06/30/17 Stop Date: 07/10/17 Status: Completed Lactated Ringers Injection IV (ANES) 1000 mL Route: IV, Total Volume: 1,000, Start date: 07/01/17 9:30:00 CDT, Stop date: 10:30:00 CDT Start Date: 07/01/17 Stop Date: 07/01/17 Status: Completed Lactated Ringers Injection IV 1000 mL 1,000 mL, Rate: 25 ml/hr, Infuse over: 40 hr, Route: IV, Dosing Weight 87.273 kg , Total Volume: 1,000, Start date: 07/01/17 7:08:00 CDT, Duration: 30 day, Stop date: 07/31/17 7:07:00 CDT, 2.03, m2 Start Date: 07/01/17 Stop Date: 07/01/17 Status: Discontinued Lactated Ringers IV 1,000 mL 1,000 mL, Rate: 75 ml/hr, Infuse over: 13.3 hr, Route: IV, Dosing Weight 87.273 kg, Total Volume: 1,000, Start date: 07/01/17 11:10:00 CDT, Duration: 30 day, St op date: 07/31/17 11:09:00 CDT, 2.03, m2 Start Date: 07/01/17 Stop Date: 07/03/17 Status: Discontinued lidocaine (ANES) Route: IV, Drug form: INJ, ONCE, Stop date: 07/01/17 10:26:00 CDT Start Date: 07/01/17 Stop Date: 07/01/17 Status: Completed Lovenox 30 mg/0.3 mL subcutaneous solution 30 mg, SUB-Q, Q12H, X 14 day, # 28 inj, 0 Refill(s) Start Date: 06/30/17 Stop Date: 07/14/17 Status: Completed Lunesta 3 mg, Route: PO, Bedtime, Dosing Weight 87.273, kg, Start date: 07/01/17 21:00:0 0 CDT, Duration: 30 day, Stop date: 07/30/17 21:00:00 CDT Start Date: 07/01/17 Stop Date: 07/01/17 Status: Deleted Lunesta 3 mg, Route: PO, Bedtime, Dosing Weight 87.273, kg, Start date: 07/01/17 21:00:0 0 CDT, Duration: 30 day, Stop date: 07/30/17 21:00:00 CDT Start Date: 07/01/17 Stop Date: 07/01/17 Status: Deleted morphine Sulfate 4 mg, 1 mL, Route: IVP, Drug form: SOLN, Q6H, Dosing Weight 87.273, kg, PRN Pain Score 7-10, Start date: 07/01/17 14:32:00 CDT, Duration: 2 day, Stop date: 06/13 06/01 14:31:00 CDT, Pain Score 8-10 Notes: (Same as:MORPhine Sulfate) Start Date: 07/01/17 Stop Date: 07/03/17 Status: Completed morphine Sulfate 2 mg, 1 mL, Route: INJ, Drug form: SOLN, Q4H, PRN Pain Score 7-10, Start date: 0 07/01/17 13:55:00 CDT, Duration: 30 day, Stop date: 07/31/17 13:54:00 CDT Start Date: 07/01/17 Stop Date: 07/01/17 Status: Discontinued Nicoderm C-Q 21 mg, 1 patch, Route: TOP, Drug form: ERFILM, Daily, Dosing Weight 87.273, kg, Start date: 07/02/17 9:00:00 CDT, Duration: 30 day, Stop date: 07/31/17 9:00:00 CDT Notes: (Same as: Habitrol)"Remove old patch before application of new patch"WAST E: F/P - P Waste Black; E - P Waste Black Start Date: 07/02/17 Stop Date: 07/03/17 Status: Discontinued Aurora 7.5/325 oral tablet 1 tab, Route: PO, Drug Form: TAB, Dosing Weight 87.273, kg, Q4H, PRN Pain Score 4-6, Start date: 07/01/17 11:10:00 CDT, Duration: 30 day, Stop date: 07/31/17 11 :09:00 CDT Notes: Same as Aurora 325-7.5mg Do not exceed 4gm/day of acetaminophen. Start Date: 07/01/17 Stop Date: 07/01/17 Status: Discontinued Aurora 7.5/325 oral tablet 2 tab, Route: PO, Drug Form: TAB, Dosing Weight 87.273, kg, Q4H, PRN Pain Score 7-10, Start date: 07/01/17 11:10:00 CDT, Duration: 30 day, Stop date: 07/31/17 1:09:00 CDT Notes: Same as Aurora 325-7.5mg Do not exceed 4gm/day of acetaminophen. Start Date: 07/01/17 Stop Date: 07/01/17 Status: Discontinued Aurora 7.5/325 oral tablet 1 tab, PO, Q6H, PRN Pain Score 7-10, # 60 tab, 0 Refill(s), given to patient Start Date: 07/03/17 Stop Date: 07/03/17 Status: Discontinued Aurora 7.5/325 oral tablet 1 tab, PO, Q6H, # 60 tab, 0 Refill(s) Start Date: 07/03/17 Stop Date: 07/03/17 Status: Discontinued ondansetron 4 mg, 2 mL, Route: IVP, Drug form: INJ, Q8H, Dosing Weight 87.273, kg, PRN Nause a & Vomiting, Start date: 07/01/17 11:10:00 CDT, Duration: 30 day, Stop date: 07/31/17 11:09:00 CDT Notes: (Same as: Zofran) MEDICATION WASTE Product Size: 4 mgProduct Was manjinder: ___ mg Start Date: 07/01/17 Stop Date: 07/03/17 Status: Discontinued ondansetron (ANES) Route: IV, Drug form: INJ, ONCE, Stop date: 07/01/17 10:31:00 CDT Start Date: 07/01/17 Stop Date: 07/01/17 Status: Completed Percocet 10/325 oral tablet 1 tab, Route: PO, Drug Form: TAB, Dosing Weight 87.273, kg, Q4H, PRN, Start date : 07/01/17 14:31:00 CDT, Duration: 10 day, Stop date: 07/11/17 14:30:00 CDT, Leonard n Score 4-7 Start Date: 07/01/17 Stop Date: 07/01/17 Status: Deleted propofol (ANES) Route: IV, Drug form: INJ, ONCE, Stop date: 07/01/17 10:26:00 CDT Start Date: 07/01/17 Stop Date: 07/01/17 Status: Completed OSMAR Pericapsular INJ 100 mL, Route: InFILtration(local), Drug Form: INJ, Dosing Weight 87.273, kg, CORRECTIONS SERGEANT, Start date: 07/01/17 6:00:00 CDT, Duration: 30 day, Stop date: 07/31/17 5: 59:00 CDT Start Date: 07/01/17 Stop Date: 07/01/17 Status: Deleted OSMAR Pericapsular INJ 100 mL, Route: InFILtration(local), Drug Form: INJ, Dosing Weight 87.273, kg, CORRECTIONS SERGEANT, Start date: 06/16/17 10:00:00 DUTY MANAGER, Stop date: 06/17/17 23:00:00 DUTY MANAGER Notes: NOT FOR IV useRopivacaine 5 mg/mL (49.25 mL) Epinephrine 1 mg/mL (0.5 mL) Clonidine 0.1 mg/mL (0.8 mL) Ketorolac 30 mg/mL (1 mL) Normal Saline 48 .45 mL Start Date: 06/16/17 Stop Date: 06/17/17 Status: Completed OSMAR Pericapsular INJ 100 mL, Route: InFILtration(local), Drug Form: INJ, Dosing Weight 87.273, kg, CORRECTIONS SERGEANT, Start date: 07/01/17 8:00:00 CDT, Duration: 30 day, Stop date: 07/31/17 7: 59:00 CDT Notes: NOT FOR IV useRopivacaine 5 mg/mL (49.25 mL) Epinephrine 1 mg/mL (0.5 mL) Clonidine 0.1 mg/mL (0.8 mL) Ketorolac 30 mg/mL (1 mL) Normal Saline 48 .45 mL Start Date: 07/01/17 Stop Date: 07/01/17 Status: Discontinued Roxicodone 10 mg, 2 tab, Route: PO, Drug form: TAB, Q4H, PRN Pain Score 4-6, Start date: 14:34:00 CDT, Stop date: 07/31/17 14:33:00 CDT Notes: (Same as: Roxicodone) Start Date: 07/01/17 Stop Date: 07/03/17 Status: Discontinued tranexamic acid (ANES) Route: IV, Drug form: INJ, ONCE, Stop date: 07/01/17 11:11:00 CDT Start Date: 07/01/17 Stop Date: 07/01/17 Status: Completed Tribenzor 5 mg-25 mg-40 mg oral tablet 1 tab, Route: PO, Drug Form: TAB, Dosing Weight 87.273, kg, Daily, Start date: 0 07/02/17 9:00:00 CDT, Duration: 30 day, Stop date: 07/31/17 9:00:00 CDT Start Date: 07/02/17 Stop Date: 07/01/17 Status: Deleted Tribenzor 5 mg-25 mg-40 mg oral tablet 1 tab, PO, Daily, 0 Refill(s) Start Date: 06/13/17 Status: Ordered Tylenol 650 mg, 2 tab, Route: PO, Drug form: TAB, Q6H, Dosing Weight 87.273, kg, PRN For Temp > 100.4 F, Start date: 07/01/17 11:10:00 CDT, Duration: 30 day, Stop date: 07/31/17 11:09:00 CDT Notes: Do not exceed 4 gm/day. (Same as: Tylenol) Start Date: 07/01/17 Stop Date: 07/03/17 Status: Discontinued Tylenol 325 mg, 1 tab, Route: PO, Drug form: TAB, Q4H, PRN Pain Score 7-10, Start date: 07/01/17 14:35:00 CDT, Stop date: 07/31/17 14:34:00 CDT Notes: Do not exceed 4 gm/day. (Same as: Tylenol) Start Date: 07/01/17 Stop Date: 07/03/17 Status: Discontinued Valium 5 mg, 1 mL, Route: IV, Drug form: INJ, Q6H, Dosing Weight 87.273, kg, PRN Spasm, Start date: 07/01/17 11:10:00 CDT, Stop date: 07/31/17 11:09:00 CDT Notes: WASTE: F/P - Black; E - White/Blue Start Date: 07/01/17 Stop Date: 07/03/17 Status: Discontinued vancomycin 1,500 mg, 250 mL, Route: IVPB, Drug form: INJ, Q12H, Dosing Weight 87.273, kg, S tart date: 07/01/17 21:00:00 CDT, Duration: 3 day, Stop date: 07/04/17 9:00:00 C DT, ABX Indication: Skin/Soft Tissue Infection Notes: TIME CRITICAL MEDICATIONSame as: Vancocin-NS (premixed)Infusion rate< 1000 mg: infuse over 1 [id number] - 1500 mg: infuse over 1.5 [id number] - 2000 mg: infuse over 2 hours> 2001 mg: infuse over 2.5 hours Start Date: 07/01/17 Stop Date: 07/03/17 Status: Discontinued vancomycin (ANES) Route: IV, Drug form: INJ, ONCE, Stop date: 07/01/17 10:26:00 CDT Start Date: 07/01/17 Stop Date: 07/01/17 Status: Completed vancomycin + Sodium Chloride 0.9% IV 250 mL 1.5 gm, Route: IVPB, ONCE, Dosing Weight 87.273, kg, Start date: 07/01/17 8:20:0 0 CDT, Stop date: 07/01/17 8:20:00 CDT, ABX Indication: Surgical Prophylaxis Notes: TUBE TO 2FTIME CRITICAL MEDICATION(Same As: Vancocin)Infusion rate< 1000 mg: infuse over 1 [id number] - 1500 mg: infuse over 1.5 [id number] - 2000 mg: infuse over 2 hours> 2001 mg: infuse over 2.5 hoursFor adult patients only: Round to nearest 250 mg per Medical Staff approval MEDICATION WASTE Product Size: 1000 mgProduct Wasted: ___ mg Start Date: 07/01/17 Stop Date: 07/01/17 Status: Completed Zofran 4 mg, 2 mL, Route: IV, Drug form: INJ, Q4H, Dosing Weight 87.273, kg, Start date : 07/01/17 14:00:00 CDT, Duration: 1 day, Stop date: 07/02/17 10:00:00 CDT Notes: (Same as: Zofran) MEDICATION WASTE Product Size: 4 mgProduct Was manjinder: ___ mg Start Date: 07/01/17 Stop Date: 07/02/17 Status: Completed zolpidem 5 mg, 1 tab, Route: PO, Drug form: TAB, Bedtime, Start date: 07/01/17 21:00:00 C DT, Duration: 30 day, Stop date: 07/30/17 21:00:00 CDT Notes: (Same As: Rosanne) Start Date: 07/01/17 Stop Date: 07/03/17 Status: Discontinued Results BLOOD BANK RESULTS 1 2 3 Most recent to oldest [Reference Range]: B POS *Unknown* (06/26/17 4:33 PM) B POS *Unknown* (06/13/17 3:28 PM) ABO/Rh Negative (06/26/17 4:33 PM) Negative (06/13/17 3:28 PM) Antibody Scrn Product available (06/26/17 4:28 PM) Product available (06/13/17 3:27 PM) RBC product ELECTROLYTES 1 2 3 Most recent to oldest [Reference Range]: 141 mEq/L (07/02/17 5:46 AM) 140 mEq/L (06/13/17 3:28 PM) Sodium Lvl [135-145 mEq/L] 4.5 mEq/L (07/02/17 5:46 AM) 5.0 mEq/L (06/13/17 3:28 PM) Potassium Lvl [3.5-5.1 mEq/L] 105 mEq/L (07/02/17 5:46 AM) 106 mEq/L (06/13/17 3:28 PM) Chloride Lvl [95-109 mEq/L] 27 mEq/L (07/02/17 5:46 AM) 29 mEq/L (06/13/17 3:28 PM) CO2 [24-32 mEq/L] 13.5 mEq/L (07/02/17 5:46 AM) 10.0 mEq/L (06/13/17 3:28 PM) AGAP [10.0-20.0 mEq/L] CHEM PANEL 1 2 3 Most recent to oldest [Reference Range]: 0.82 mg/dL (07/02/17 5:46 AM) Creatinine Lvl [0.50-1.40 mg/dL] 83 mL/min/1.73m2 1 *NA* (07/02/17 5:46 AM) eGFR 16 mg/dL (07/02/17 5:46 AM) BUN [7-22 mg/dL] 110 mg/dL *HI* (07/02/17 5:46 AM) Glucose Lvl [70-99 mg/dL] 8.3 mg/dL *LOW* (07/02/17 5:46 AM) Calcium Lvl [8.5-10.5 mg/dL] 1Result Comment: The eGFR is calculated using the [...] from the National Kid[employer] Education Program ( NKDEP) which additionally recommends that when the eGFR is used in patients with extremes of body mass index for purposes of drug dosing, the eGFR should be mul tiplied by the estimated BMI. HEMATOLOGY 1 2 3 Most recent to oldest [Reference Range]: 10.2 K/CMM (07/03/17 4:19 AM) 13.6 K/CMM *HI* (07/02/17 5:46 AM) 11.9 K/CMM *HI* (06/13/17 3:28 PM) WBC [3.7-10.4 K/CMM] 3.72 M/CMM *LOW* (07/03/17 4:19 AM) 3.75 M/CMM *LOW* (07/02/17 5:46 AM) 4.20 M/CMM (06/13/17 3:28 PM) RBC [4.20-5.40 M/CMM] 11.4 g/dL *LOW* (07/03/17 4:19 AM) 11.4 g/dL *LOW* (07/02/17 5:46 AM) 12.8 g/dL (06/13/17 3:28 PM) Hgb [12.0-16.0 g/dL] 34.0 % *LOW* (07/03/17 4:19 AM) 34.1 % *LOW* (07/02/17 5:46 AM) 39.3 % (06/13/17 3:28 PM) Hct [36.0-48.0 %] 91.4 fL (07/03/17 4:19 AM) 90.9 fL (07/02/17 5:46 AM) 93.6 fL (06/13/17 3:28 PM) MCV [80.0-98.0 fL] 30.5 pg (07/03/17 4:19 AM) 30.4 pg (07/02/17 5:46 AM) 30.4 pg (06/13/17 3:28 PM) MCH [27.0-31.0 pg] 33.4 g/dL (07/03/17 4:19 AM) 33.4 g/dL (07/02/17 5:46 AM) 32.5 g/dL (06/13/17 3:28 PM) MCHC [32.0-36.0 g/dL] 14.2 % (07/03/17 4:19 AM) 14.2 % (07/02/17 5:46 AM) 15.6 % *HI* (06/13/17 3:28 PM) RDW [11.5-14.5 %] 7.4 fL (07/03/17 4:19 AM) 7.3 fL *LOW* (07/02/17 5:46 AM) 7.9 fL (06/13/17 3:28 PM) MPV [7.4-10.4 fL] 399 K/CMM (07/03/17 4:19 AM) 441 K/CMM (07/02/17 5:46 AM) 372 K/CMM (06/13/17 3:28 PM) Platelet [133-450 K/CMM] 64.6 % (07/03/17 4:19 AM) 74.4 % (07/02/17 5:46 AM) 64.8 % (06/13/17 3:28 PM) Segs [45.0-75.0 %] 22.4 % (07/03/17 4:19 AM) 15.4 % *LOW* (07/02/17 5:46 AM) 20.8 % (06/13/17 3:28 PM) Lymphocytes [20.0-40.0 %] 10.9 % (07/03/17 4:19 AM) 9.7 % (07/02/17 5:46 AM) 12.8 % *HI* (06/13/17 3:28 PM) Monocytes [2.0-12.0 %] 1.3 % (07/03/17 4:19 AM) 0.2 % (07/02/17 5:46 AM) 1.1 % (06/13/17 3:28 PM) Eosinophils [0.0-4.0 %] 0.8 % (07/03/17 4:19 AM) 0.3 % (07/02/17 5:46 AM) 0.5 % (06/13/17 3:28 PM) Basophils [0.0-1.0 %] 6.6 K/CMM (07/03/17 4:19 AM) 10.2 K/CMM *HI* (07/02/17 5:46 AM) 7.7 K/CMM (06/13/17 3:28 PM) Segs-Bands # [1.5-8.1 K/CMM] 2.3 K/CMM (07/03/17 4:19 AM) 2.1 K/CMM (07/02/17 5:46 AM) 2.5 K/CMM (06/13/17 3:28 PM) Lymphocytes # [1.0-5.5 K/CMM] 1.1 K/CMM *HI* (07/03/17 4:19 AM) 1.3 K/CMM *HI* (07/02/17 5:46 AM) 1.5 K/CMM *HI* (06/13/17 3:28 PM) Monocytes # [0.0-0.8 K/CMM] 0.1 K/CMM (07/03/17 4:19 AM) 0.1 K/CMM (06/13/17 3:28 PM) Eosinophils # [0.0-0.5 K/CMM] 0.1 K/CMM (07/03/17 4:19 AM) 0.1 K/CMM (06/13/17 3:28 PM) Basophils # [0.0-0.2 K/CMM] Normal (06/13/17 3:28 PM) RBC Morph Normal (06/13/17 3:28 PM) Plt Morph 12.5 seconds (06/13/17 3:28 PM) PT [12.0-14.7 seconds] 0.93 (06/13/17 3:28 PM) INR [0.85-1.17] 24.4 seconds (06/13/17 3:28 PM) PTT [22.9-35.8 seconds] Immunizations Given and Recorded Vaccine Date Status [...] Reg Smoking Cessation Counseling No entered on: 08/26/17 Assessment and Plan No data available for this section
--- OUTSIDE RECORDS SUMMARY | 2018-09-17 06:24 | XMS REPORT | Summary of Care ---
Author Author [facility] Address Unknown Phone Unavailable Encounter HQ Nabila(FIN) [id number] Date(s): 03/24/15 - 04/22/15 [facility] Discharge Disposition: Home Attending Physician: Candido Lind Vital Signs No data available for this section Problem List Condition Effective Dates Status Health Status Informant Arthritis(Confirmed) Active Breast lump1 02/12/12 Active Hypertension(Confirm Active ed) Meniscus Active unstable(Confirmed) 1Data migrated from [facility] on 09/10/14. Allergies, Adverse Reactions, Alerts Substance Reaction Severity Status NKDA Active Medications No data available for this section Results No data available for this section Immunizations Vaccine Date Refusal Reason pneumococcal 23-valent vaccine 03/22/15 Procedures Procedure Date Related Diagnosis Body Site Arthroplasty of the hip 05/23/09 Arthroscopic knee operation Breast biopsy and related procedures section1 Laminectomy and discectomy Open reduction and fixation of fracture 1x2 1989, 1991 Social History Social History Type Response Smoking Status Current every day smoker; Type: Cigarettes; Exposure to Tobacco Smoke 1/2 pk a day; Cigarette Smoking Last 365 Days No; Reg Smoking Cessation Counseling No Assessment and Plan Extracted from: Title: Pain Management Consultation Author: Isaias Braxton MD Date: 03/23/15 Pain Management Consultation CC: Knee pain HPI: Ms. Hernández is a 49 y/o F with PMH significant for R knee DJD, she is s/p R knee TKA on 03/21 and POD#2. 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 In the past, she has taken Oxycodone/Percocet for severe pain without SE or issues. She is likely going home today. She has severe right knee pain, 8/10, and sharp, stabbing at times. The pain medications do help. PMH: HTN PSH: Pinning of the ankle, lumbar surgery, cholecystectomy SH: + Tobacco, 1ppd years, negative for ETOH and lives with family, no current job, denies illicit drugs FH: + HTN, [place] ALLERGIES: NKDA MEDICATIONS: 1. Hydrochlorothiazide 12.5 mg daily. 2. Lisinopril 40 mg daily. 3. Lunesta 3 mg at bedtime. 4. Gabapentin 10 mg 3 times a day. 5. Cromwell for pain as needed. 6. Cyclobenzaprine 10 mg daily. 7. Diazepam 5 mg p.r.n. for spasm. REVIEW OF SYSTEMS: GENERAL: Denies fever, chills. EYES: Denies blurry vision. HEENT: Denies sinus congestion, sore throat, earache. RESPIRATORY: Denies shortness of breath, cough or cold. CARDIOVASCULAR: Denies chest pain, leg swelling. ALIMENTARY: Denied nausea, vomiting, abdominal pain. GENITOURINARY: Denies dysuria, frequency, urgency. NEUROLOGIC: Denies any focal weakness. MUSCULOSKELETAL: Status post right total knee arthroplasty. Additional ROS were reported as negative PHYSICAL EXAMINATION: 98.0 tmax, 112/67, 74, 18 GENERAL: AOx3, pleasant F, lying in bed, comfortable HEENT: PERRLA, conjunctivae normal NECK: Supple, no JVD, no thyromegaly RESPIRATORY: Bilateral good air entry. HEART: S1, S2, regular, no murmur. ABDOMEN: Bowel sounds present, no mass, no guarding, no rigidity. LOWER EXTREMITIES: No edema, no calf tenderness. Peripheral pulses are good. +R knee brace/wrap NEUROLOGICAL: Cranial nerves II-XII are normal, no motor deficit MUSCULOSKELETAL: Right total knee arthroplasty, R knee ROM not performed secondary to pain Laboratory: Reviewed Imaging: Reviewed A/P: Ms. Hernández is a 49 y/o F with knee pain secondary to recent TKA POD#2. She is doing quite well postoperatively and progressing. She may be able to go home today. I will give her an Rx for Percocet 10/325mg QID prn - 0.5 to 1 tab, #30 for discharge. She may followup in our clinic if needed. She has a scheduled appointment with Dr. Al for postoperative care and followup. Thank you for the consultation. [facility] [phone]
--- OUTSIDE RECORDS SUMMARY | 2018-09-17 06:24 | XMS REPORT | Summary of Care ---
Author Author [facility] Organization [facility] Address Unknown Phone Unavailable Encounter CHELSIE Dahl(NORMAN) [id number] Date(s): 03/21/15 - 03/23/15 [facility] [address] [place] [address]- Discharge Disposition: Home Attending Physician: Candido Lind Admitting Physician: Candido Lind Referring Physician: Candido Lind Vital Signs 1 2 3 Most recent to oldest [Reference Range]: 165.1 cm (03/16/15 9:55 AM) Height 98.7 DegF (03/23/15 11:32 AM) 98.1 DegF (03/23/15 7:46 AM) 98.9 DegF (03/23/15 3:02 AM) Temperature Oral [96.4-99.1 DegF] 110/78 mmHg (03/23/15 11:32 AM) 128/87 mmHg (03/23/15 7:46 AM) 141/90 mmHg *HI* (03/23/15 3:02 AM) Blood Pressure [90-140/60-90 mmHg] 16 BRMIN (03/23/15 11:32 AM) 16 BRMIN (03/23/15 8:28 AM) 16 BRMIN (03/23/15 7:46 AM) Respiratory Rate [14-20 BRMIN] 92 bpm (03/23/15 11:32 AM) 104 bpm *HI* (03/23/15 7:46 AM) 92 bpm (03/23/15 3:02 AM) Peripheral Pulse Rate [60-100 bpm] 90.909 kg (03/16/15 9:55 AM) Weight 33.35 m2 (03/16/15 9:55 AM) Body Mass Index Problem List Condition Effective Dates Status Health Status Informant Arthritis(Confirmed) Active Breast lump1 02/12/12 Active Hypertension(Confirm Active ed) Meniscus Active unstable(Confirmed) 1Data migrated from [facility] on 09/10/14. Allergies, Adverse Reactions, Alerts Substance Reaction Severity Status NKDA Active Medications acetaminophen-oxycodone 325 mg-10 mg oral tablet 1 tab, PO, Q6H, PRN for pain, # 30 tab, 0 Refill(s), given to patient Start Date: 03/23/15 Stop Date: 04/23/15 Status: Ordered acetaminophen-oxycodone 325 mg-10 mg oral tablet 1 tab, PO, Q6H, PRN for pain, 0 Refill(s) Start Date: 03/16/15 Stop Date: 03/23/15 Status: Discontinued Al hydroxide/Mg hydroxide/simethicone 200 mg-200 mg-20 mg/5 mL oral suspension 30 mL, Route: PO, Drug Form: SUSP, Dosing Weight 90.909, kg, Q4H, PRN Indigestio n, Start date: 03/21/15 10:34:00, Duration: 30 day, Stop date: 04/20/15 10:33:00 Notes: (aluminum hydroxide-magnesium hyd-simethicone [phone]/5ml 30 ml ud S US) Start Date: 03/21/15 Stop Date: 03/23/15 Status: Discontinued Ambien 5 mg, 1 tab, Route: PO, Drug form: TAB, Bedtime, Start date: 03/21/15 15:25:00, Stop date: 04/20/15 21:00:00 Notes: (Same As: Ambien) Start Date: 03/21/15 Stop Date: 03/23/15 Status: Discontinued Ancef 2 gm, Route: IVPB, ONCE, Dosing Weight 90.909, kg, Start date: 03/21/15 9:00:00, Duration: 1 doses or times, Stop date: 03/21/15 9:00:00, Surgical Prophylaxis O nly; For patients < 120 kg Start Date: 03/21/15 Stop Date: 03/21/15 Status: Completed ceFAZolin (SCIP) 1 gm, 100 mL, Route: IVPB, Drug form: INJ, [id number], Dosing Weight 90.909, kg, Sta rt date: 03/21/15 12:00:00, Duration: 3 doses or times, Stop date: 03/22/15 4:00 :00 Start Date: 03/21/15 Stop Date: 03/22/15 Status: Completed Cipro 400 mg, 200 mL, Route: IVPB, Drug form: INJ, [id number], Dosing Weight 90.909, kg, Start date: 03/22/15 7:00:00, Duration: 3 day, Stop date: 03/24/15 19:00:00 Notes: Do not refrigerate Start Date: 03/22/15 Stop Date: 03/23/15 Status: Discontinued diazepam 5 mg, 1 mL, Route: IVP, Drug form: INJ, Q4H, Dosing Weight 90.909, kg, PRN Muscl e Spasms, Start date: 03/21/15 10:34:00, Duration: 30 day, Stop date: 04/20/15 1 0:33:00 Notes: (Same as: Valium) Start Date: 03/21/15 Stop Date: 03/23/15 Status: Discontinued Dilaudid 1.5 mg, 1.5 mL, Route: IV, Drug form: INJ, Q6H, Dosing Weight 90.909, kg, PRN Pa in Score 7-10, Start date: 03/22/15 6:19:00, Duration: 2 day, Stop date: 5 6:18:00 Start Date: 03/22/15 Stop Date: 03/23/15 Status: Discontinued diphenhydrAMINE 12.5 mg, 0.5 tab, Route: PO, Drug form: TAB, Q6H, Dosing Weight 90.909, kg, PRN Itching, Start date: 03/21/15 10:34:00, Duration: 30 day, Stop date: 04/20/15 10 :33:00 Start Date: 03/21/15 Stop Date: 03/23/15 Status: Discontinued docusate 100 mg, 1 cap, Route: PO, Drug form: CAP, BID, Dosing Weight 90.909, kg, Start d ate: 03/21/15 17:00:00, Duration: 30 day, Stop date: 04/20/15 9:00:00 Notes: (Same as: Colace) (Do Not Crush) Start Date: 03/21/15 Stop Date: 03/23/15 Status: Discontinued enoxaparin 30 mg, Route: SUB-Q, Drug form: INJ, [id number], Dosing Weight 90.909, kg, Start d ate: 03/21/15 11:00:00, Duration: 30 day, Stop date: 04/19/15 23:00:00 Start Date: 03/21/15 Stop Date: 03/21/15 Status: Deleted Flexeril 10 mg oral tablet 10 mg, PO, Daily, PRN Muscle Spasm, # 30 tab, 0 Refill(s) Start Date: 03/16/15 Stop Date: 03/26/15 Status: Ordered flumazenil 0.2 mg, Route: IVP, PRN, Dosing Weight 90.909, kg, PRN Benzodiazepine Reversal, Initial dose, Start date: 03/21/15 11:12:00, Duration: 30 day, Stop date: 11:11:00 Start Date: 03/21/15 Stop Date: 03/21/15 Status: Discontinued gabapentin 300 mg oral capsule 300 mg, 1 cap, Route: PO, Drug form: CAP, TID, Dosing Weight 90.909, kg, Start d ate: 03/21/15 17:00:00, Duration: 30 day, Stop date: 04/20/15 13:00:00 Notes: (Same as: Neurontin) Start Date: 03/21/15 Stop Date: 03/23/15 Status: Discontinued gabapentin 300 mg oral capsule 300 mg=1 cap, PO, TID, # 270 cap, 0 Refill(s) Start Date: 03/16/15 Status: Ordered hydrALAZINE 10 mg, Route: IVP, Q20Min, Dosing Weight 90.909, kg, PRN Elevated BP, Start date : 03/21/15 11:12:00, Duration: 2 doses or times, Stop date: Limited # of times Start Date: 03/21/15 Stop Date: 03/21/15 Status: Discontinued hydrochlorothiazide 12.5 mg, 1 cap, Route: PO, Drug form: CAP, Daily, Dosing Weight 90.909, kg, Star t date: 03/22/15 9:00:00, Duration: 30 day, Stop date: 04/20/15 9:00:00 Notes: (Same as: Microzide) With food. Start Date: 03/22/15 Stop Date: 03/23/15 Status: Discontinued hydromorphone 0.5 mg, Route: IVP, Q5Min, Dosing Weight 90.909, kg, PRN Pain Score 7-10, Start date: 03/21/15 11:12:00, Duration: 4 doses or times, Stop date: Limited # of mateo es Start Date: 03/21/15 Stop Date: 03/21/15 Status: Discontinued hydromorphone 0.3 mg, 0.3 mL, Route: IVP, Drug form: INJ, Q4H, Dosing Weight 90.909, kg, PRN P ain Score 7-10, Start date: 03/21/15 10:34:00, Duration: 30 day, Stop date: 10/27 10:33:00 Start Date: 03/21/15 Stop Date: 03/23/15 Status: Discontinued HYDROmorphone 0.5mg/mL GAUGE MACHINE OPERATOR (15mg/30 mL) 15 mg 15 mg, 30 mL, Route: IV, Initial Loading Dose: 0 mg, GAUGE MACHINE OPERATOR Dose: 0.2 mg, GAUGE MACHINE OPERATOR Locko ut: 8 minutes, Continuous Basal Rate: 0 mg, 4 Hour Limit (In MG): 6, Drug Form: INJ, Continuous, Start date: 03/21/15 11:00:00, Duration: 30 day, Stop date: 10/27 10:59:00 Notes: (Same as: Dilaudid) conc=0.5 mg/mlHydromorphone GAUGE MACHINE OPERATOR Dose: ;Delay: ;Basal: Start Date: 03/21/15 Stop Date: 03/22/15 Status: Discontinued Keflex 500 mg oral capsule 500 mg=1 cap, PO, QID, X 10 day, # 40 cap, 0 Refill(s) Start Date: 03/20/15 Stop Date: 03/30/15 Status: Ordered Lactated Ringers Injection IV 1000 mL 1,000 mL, Rate: 25 ml/hr, Infuse over: 40 hr, Route: IV, Dosing Weight 90.909 kg , Total Volume: 1,000, Start date: 03/21/15 9:29:00, Duration: 30 day, Stop date : 04/20/15 9:28:00 Start Date: 03/21/15 Stop Date: 03/21/15 Status: Discontinued Lactated Ringers IV 1,000 mL 1,000 mL, Rate: 75 ml/hr, Infuse over: 13.3 hr, Route: IV, Dosing Weight 90.909 kg, Total Volume: 1,000, Start date: 03/21/15 10:34:00, Duration: 30 day, Stop d ate: 04/20/15 10:33:00 Start Date: 03/21/15 Stop Date: 03/22/15 Status: Discontinued lisinopril 40 mg, 2 tab, Route: PO, Drug form: TAB, Daily, Dosing Weight 90.909, kg, Start date: 03/22/15 9:00:00, Duration: 30 day, Stop date: 04/20/15 9:00:00 Notes: (Same as: Prinivil, Zestril) Start Date: 03/22/15 Stop Date: 03/23/15 Status: Discontinued Lovenox 30 mg, 0.3 mL, Route: SUB-Q, Drug form: INJ, [id number], Start date: 03/22/15 9:00 :00, Duration: 30 day, Stop date: 04/20/15 21:00:00 Notes: (Same as: Lovenox) Start Date: 03/22/15 Stop Date: 03/23/15 Status: Discontinued Lovenox 30 mg/0.3 mL subcutaneous solution 30 mg, SUB-Q, Q12H, X 14 day, # 28 inj, 0 Refill(s) Start Date: 03/20/15 Stop Date: 04/03/15 Status: Ordered Lunesta 3 mg, Route: PO, Drug form: TAB, Bedtime, Dosing Weight 90.909, kg, PRN Insomnia , Start date: 03/21/15 16:58:00, Duration: 30 day, Stop date: 04/20/15 16:57:00 Start Date: 03/21/15 Stop Date: 03/21/15 Status: Deleted Lunesta 3 mg, Route: PO, Bedtime, Dosing Weight 90.909, kg, Start date: 03/21/15 21:00:0 0, Duration: 30 day, Stop date: 04/19/15 21:00:00 Start Date: 03/21/15 Stop Date: 03/21/15 Status: Deleted Lunesta 3 mg, Route: PO, Bedtime, Dosing Weight 90.909, kg, Start date: 03/22/15 21:00:0 0, Duration: 30 day, Stop date: 04/20/15 21:00:00 Start Date: 03/22/15 Stop Date: 03/22/15 Status: Deleted Lunesta 3 mg, Route: PO, Bedtime, Dosing Weight 90.909, kg, Start date: 03/21/15 21:00:0 0, Duration: 30 day, Stop date: 04/19/15 21:00:00 Start Date: 03/21/15 Stop Date: 03/21/15 Status: Deleted Lunesta 3 mg oral tablet 3 mg=1 tab, PO, Bedtime, PRN for insomnia, # 30 tab, 0 Refill(s) Start Date: 03/20/15 Stop Date: 03/20/16 Status: Ordered meperidine 12.5 mg, Route: IVP, Q30Min, Dosing Weight 90.909, kg, PRN Other -See Comment, F or shivering, Start date: 03/21/15 11:12:00, Duration: 2 doses or times, Stop da te: Limited # of times Start Date: 03/21/15 Stop Date: 03/21/15 Status: Discontinued metoprolol 1 mg, Route: IVP, Q5Min, Dosing Weight 90.909, kg, PRN Other -See Comment, Start date: 03/21/15 11:12:00, Duration: 5 doses or times, Stop date: Limited # of ti mes Start Date: 03/21/15 Stop Date: 03/21/15 Status: Discontinued morphine Sulfate 4 mg, Route: IVP, Q5Min, Dosing Weight 90.909, kg, PRN Pain Score 7-10, Start da te: 03/21/15 11:12:00, Duration: 3 doses or times, Stop date: Limited # of times Start Date: 03/21/15 Stop Date: 03/21/15 Status: Discontinued naloxone 0.04 mg, Route: IVP, Q2MIN, Dosing Weight 90.909, kg, PRN Narcotic Reversal, Sta rt date: 03/21/15 11:12:00, Duration: 8 doses or times, Stop date: Limited # of times Start Date: 03/21/15 Stop Date: 03/21/15 Status: Discontinued naloxone 0.04 mg, 0.1 mL, Route: IVP, Drug form: INJ, Q2MIN, Dosing Weight 90.909, kg, IN N Narcotic Reversal, Start date: 03/21/15 10:34:00, Duration: 30 day, Stop date: 04/20/15 10:33:00 Notes: Same as Narcan Start Date: 03/21/15 Stop Date: 03/23/15 Status: Discontinued Mansfield 10/325 oral tablet 2 tab, Route: PO, Drug Form: TAB, Dosing Weight 90.909, kg, Q4H, PRN Pain Score 4-6, Start date: 03/22/15 6:18:00, Duration: 30 day, Stop date: 04/21/15 6:17:00 Notes: Do not exceed 4gm/day of acetaminophen. (Same as: Mansfield 325/10) Start Date: 03/22/15 Stop Date: 03/23/15 Status: Discontinued Mansfield 10/325 oral tablet 1 tab, Route: PO, Drug Form: TAB, Dosing Weight 90.909, kg, Q4H, PRN Pain Score 1-3, Start date: 03/22/15 6:18:00, Duration: 30 day, Stop date: 04/21/15 6:17:00 Notes: Do not exceed 4gm/day of acetaminophen. (Same as: Mansfield 325/10) Start Date: 03/22/15 Stop Date: 03/23/15 Status: Discontinued Mansfield 7.5/325 oral tablet 1 tab, PO, Q4H, PRN Pain Score 4-6, # 40 tab, 0 Refill(s), given to patient Start Date: 03/23/15 Stop Date: 04/23/15 Status: Ordered Mansfield 7.5/325 oral tablet 2 tab, Route: PO, Drug Form: TAB, Dosing Weight 90.909, kg, Q4H, PRN Pain Score 7-10, Start date: 03/21/15 10:34:00, Duration: 30 day, Stop date: 04/20/15 10:33 :00 Notes: Same as Mansfield 325-7.5mg Do not exceed 4gm/day of acetaminophen. Start Date: 03/21/15 Stop Date: 03/23/15 Status: Discontinued Mansfield 7.5/325 oral tablet 1 tab, Route: PO, Drug Form: TAB, Dosing Weight 90.909, kg, Q4H, PRN Pain Score 4-6, Start date: 03/21/15 10:34:00, Duration: 30 day, Stop date: 04/20/15 10:33: 00 Notes: Same as Mansfield 325-7.5mg Do not exceed 4gm/day of acetaminophen. Start Date: 03/21/15 Stop Date: 03/23/15 Status: Discontinued ondansetron 4 mg, Route: IVP, ONCE, Dosing Weight 90.909, kg, PRN Nausea & Vomiting, Start date: 03/21/15 11:12:00 Start Date: 03/21/15 Stop Date: 03/21/15 Status: Discontinued ondansetron 4 mg, 2 mL, Route: IVP, Drug form: INJ, Q8H, Dosing Weight 90.909, kg, PRN Nause a & Vomiting, Start date: 03/21/15 10:34:00, Duration: 30 day, Stop date: 04/20/15 10:33:00 Notes: (Same as: Zohra) MEDICATION WASTE Product Size: 4 mgProduct Was manjinder: ___ mg Start Date: 03/21/15 Stop Date: 03/23/15 Status: Discontinued oxyCODONE 5 mg, Route: PO, Drug form: TAB, Q4H, Dosing Weight 90.909, kg, PRN Pain Score 4 -6, Start date: 03/21/15 11:12:00, Duration: 30 day, Stop date: 04/20/15 11:11:0 0 Start Date: 03/21/15 Stop Date: 03/21/15 Status: Discontinued pneumococcal 23-valent vaccine 0.5 mL, Route: IM, Drug Form: INJ, Daily, Start date: 03/22/15 9:00:00, Duration : 1 doses or times, Stop date: 03/22/15 9:00:00 Notes: (Same as: Pneumovax 23) Refrigerate Start Date: 03/22/15 Stop Date: 03/22/15 Status: Completed Tylenol 650 mg, 2 tab, Route: PO, Drug form: TAB, Q6H, Dosing Weight 90.909, kg, PRN For Temp > 100.4 F, Start date: 03/21/15 10:34:00, Duration: 30 day, Stop date: 04/20/15 10:33:00 Notes: Do not exceed 4 gm/day. (Same as: Tylenol) Start Date: 03/21/15 Stop Date: 03/23/15 Status: Discontinued Valium 5 mg, Route: PO, Drug form: TAB, QID, Dosing Weight 90.909, kg, PRN Spasm, Start date: 03/21/15 16:58:00, Duration: 30 day, Stop date: 04/20/15 16:57:00 Start Date: 03/21/15 Stop Date: 03/21/15 Status: Discontinued Valium 5 mg oral tablet 5 mg=1 tab, PO, QID, PRN Spasm, # 30 tab, 0 Refill(s) Start Date: 03/20/15 Stop Date: 03/20/16 Status: Ordered Results BLOOD BANK RESULTS 1 2 3 Most recent to oldest [Reference Range]: B POS *Unknown* (03/16/15 10:04 AM) ABO/Rh Negative (03/16/15 10:04 AM) Antibody Scrn ELECTROLYTES 1 2 3 Most recent to oldest [Reference Range]: 136 mEq/L (03/22/15 6:52 AM) 137 mEq/L (03/16/15 10:04 AM) Sodium Lvl [135-145 mEq/L] 4.7 mEq/L (03/22/15 6:52 AM) 4.1 mEq/L (03/16/15 10:04 AM) Potassium Lvl [3.5-5.1 mEq/L] 101 mEq/L (03/22/15 6:52 AM) 101 mEq/L (03/16/15 10:04 AM) Chloride Lvl [95-109 mEq/L] 27 mEq/L (03/22/15 6:52 AM) 28 mEq/L (03/16/15 10:04 AM) CO2 [24-32 mEq/L] 12.7 mEq/L (03/22/15 6:52 AM) 12.1 mEq/L (03/16/15 10:04 AM) AGAP [10.0-20.0 mEq/L] CHEM PANEL 1 2 3 Most recent to oldest [Reference Range]: 0.79 mg/dL (03/22/15 6:52 AM) 0.99 mg/dL (03/21/15 3:26 PM) 0.79 mg/dL (03/16/15 10:04 AM) Creatinine Lvl [0.50-1.40 mg/dL] 88 mL/min/1.73m2 1 *NA* (03/22/15 6:52 AM) 67 mL/min/1.73m2 2 *NA* (03/21/15 3:26 PM) 88 mL/min/1.73m2 3 *NA* (03/16/15 10:04 AM) eGFR 18 mg/dL (03/22/15 6:52 AM) 10 mg/dL (03/16/15 10:04 AM) BUN [7-22 mg/dL] 23 (03/22/15 6:52 AM) B/C Ratio [6-25] 87 mg/dL (03/22/15 6:52 AM) 101 mg/dL *HI* (03/16/15 10:04 AM) Glucose Lvl [70-99 mg/dL] 6.1 g/dL *LOW* (03/22/15 6:52 AM) Total Protein [6.4-8.4 g/dL] 2.8 g/dL *LOW* (03/22/15 6:52 AM) Albumin Lvl [3.5-5.0 g/dL] 3.3 g/dL (03/22/15 6:52 AM) Globulin [2.0-4.0 g/dL] 0.8 (03/22/15 6:52 AM) A/G Ratio [0.7-1.6] 8.6 mg/dL (03/22/15 6:52 AM) 9.4 mg/dL (03/16/15 10:04 AM) Calcium Lvl [8.5-10.5 mg/dL] 19 unit/L (03/22/15 6:52 AM) ALT [0-65 unit/L] 15 unit/L (03/22/15 6:52 AM) AST [0-37 unit/L] 86 unit/L (03/22/15 6:52 AM) Alk Phos [39-136 unit/L] 0.3 mg/dL (03/22/15 6:52 AM) Bili Total [0.2-1.3 mg/dL] 1Result Comment: The eGFR is calculated [...] be mul tiplied by the estimated BMI. 2Result Comment: The eGFR is calculated using the [...] be mul tiplied by the estimated BMI. 3Result Comment: The eGFR is calculated using the [...] be mul tiplied by the estimated BMI. URINE AND STOOL 1 2 3 Most recent to oldest [Reference Range]: Clear (03/21/15 5:55 PM) Slight *ABN* (03/16/15 10:04 AM) UA Turbidity [Clear] Yellow *NA* (03/21/15 5:55 PM) Yellow *NA* (03/16/15 10:04 AM) UA Color [Yellow] 6.5 (03/21/15 5:55 PM) 6.5 (03/16/15 10:04 AM) UA pH [5.0-8.0] 1.010 (03/21/15 5:55 PM) 1.010 (03/16/15 10:04 AM) UA Spec Grav [<=1.030] Negative (03/21/15 5:55 PM) Negative (03/16/15 10:04 AM) UA Glucose [Negative] Negative (03/21/15 5:55 PM) Moderate *ABN* (03/16/15 10:04 AM) UA Blood [Negative] Negative *NA* (03/21/15 5:55 PM) Negative *NA* (03/16/15 10:04 AM) UA Ketones [Negative] Negative (03/21/15 5:55 PM) Negative (03/16/15 10:04 AM) UA Protein [Negative] 0.2 EU/dL (03/21/15 5:55 PM) 0.2 EU/dL (03/16/15 10:04 AM) UA Urobilinogen [0.1-1.0 EU/dL] Negative *NA* (03/21/15 5:55 PM) Negative *NA* (03/16/15 10:04 AM) UA Bili [Negative] Trace *ABN* (03/21/15 5:55 PM) Large *ABN* (03/16/15 10:04 AM) UA Leuk Est [Negative] Negative (03/21/15 5:55 PM) Positive *ABN* (03/16/15 10:04 AM) UA Nitrite [Negative] 1 /HPF (03/21/15 5:55 PM) >182 /HPF *HI* (03/16/15 10:04 AM) UA WBC [0-5 /HPF] 8 /HPF *HI* (03/16/15 10:04 AM) UA RBC [0-2 /HPF] Occasional /HPF *NA* (03/21/15 5:55 PM) UA Bacteria [None Seen /HPF] Occasional /LPF *NA* (03/21/15 5:55 PM) Few /LPF *NA* (03/16/15 10:04 AM) UA Sq Epi [Few /LPF] 4 /LPF *HI* (03/21/15 5:55 PM) UA Hyal Cast [0-2 /LPF] Occasional /HPF *NA* (03/16/15 10:04 AM) UA Amorph Wanda [None Seen /HPF] Few /LPF *NA* (03/21/15 5:55 PM) Few /LPF *NA* (03/16/15 10:04 AM) UA Mucus [None Seen /LPF] Performed (03/16/15 10:04 AM) Micro? HEMATOLOGY 1 2 3 Most recent to oldest [Reference Range]: 11.9 K/CMM *HI* (03/23/15 3:47 AM) 10.8 K/CMM *HI* (03/22/15 6:52 AM) 13.0 K/CMM *HI* (03/16/15 10:04 AM) WBC [3.7-10.4 K/CMM] 3.79 M/CMM *LOW* (03/23/15 3:47 AM) 3.61 M/CMM *LOW* (03/22/15 6:52 AM) 4.36 M/CMM (03/16/15 10:04 AM) RBC [4.20-5.40 M/CMM] 10.6 g/dL *LOW* (03/23/15 3:47 AM) 10.2 g/dL *LOW* (03/22/15 6:52 AM) 12.2 g/dL (03/16/15 10:04 AM) Hgb [12.0-16.0 g/dL] 33.6 % *LOW* (03/23/15 3:47 AM) 31.9 % *LOW* (03/22/15 6:52 AM) 38.9 % (03/16/15 10:04 AM) Hct [36.0-48.0 %] 88.8 fL (03/23/15 3:47 AM) 88.3 fL (03/22/15 6:52 AM) 89.4 fL (03/16/15 10:04 AM) MCV [80.0-98.0 fL] 28.0 pg (03/23/15 3:47 AM) 28.3 pg (03/22/15 6:52 AM) 27.9 pg (03/16/15 10:04 AM) MCH [27.0-31.0 pg] 31.5 g/dL *LOW* (03/23/15 3:47 AM) 32.0 g/dL (03/22/15 6:52 AM) 31.3 g/dL *LOW* (03/16/15 10:04 AM) MCHC [32.0-36.0 g/dL] 16.4 % *HI* (03/23/15 3:47 AM) 15.9 % *HI* (03/22/15 6:52 AM) 16.1 % *HI* (03/16/15 10:04 AM) RDW [11.5-14.5 %] 489 K/CMM *HI* (03/23/15 3:47 AM) 497 K/CMM *HI* (03/22/15 6:52 AM) 501 K/CMM *HI* (03/21/15 3:26 PM) Platelet [133-450 K/CMM] 7.9 fL (03/23/15 3:47 AM) 7.6 fL (03/22/15 6:52 AM) 8.2 fL (03/16/15 10:04 AM) MPV [7.4-10.4 fL] 75.4 % *HI* (03/23/15 3:47 AM) 69.9 % (03/22/15 6:52 AM) 72.8 % (03/16/15 10:04 AM) Segs [45.0-75.0 %] 14.0 % *LOW* (03/23/15 3:47 AM) 18.6 % *LOW* (03/22/15 6:52 AM) 12.1 % *LOW* (03/16/15 10:04 AM) Lymphocytes [20.0-40.0 %] 9.0 % (03/23/15 3:47 AM) 10.4 % (03/22/15 6:52 AM) 14.4 % *HI* (03/16/15 10:04 AM) Monocytes [2.0-12.0 %] 0.6 % (03/23/15 3:47 AM) 0.7 % (03/22/15 6:52 AM) 0.3 % (03/16/15 10:04 AM) Eosinophils [0.0-4.0 %] 1.0 % (03/23/15 3:47 AM) 0.4 % (03/22/15 6:52 AM) 0.4 % (03/16/15 10:04 AM) Basophils [0.0-1.0 %] 9.0 K/CMM *HI* (03/23/15 3:47 AM) 7.6 K/CMM (03/22/15 6:52 AM) 9.4 K/CMM *HI* (03/16/15 10:04 AM) Segs-Bands # [1.5-8.1 K/CMM] 1.7 K/CMM (03/23/15 3:47 AM) 2.0 K/CMM (03/22/15 6:52 AM) 1.6 K/CMM (03/16/15 10:04 AM) Lymphocytes # [1.0-5.5 K/CMM] 1.1 K/CMM *HI* (03/23/15 3:47 AM) 1.1 K/CMM *HI* (03/22/15 6:52 AM) 1.9 K/CMM *HI* (03/16/15 10:04 AM) Monocytes # [0.0-0.8 K/CMM] 0.1 K/CMM (03/23/15 3:47 AM) 0.1 K/CMM (03/22/15 6:52 AM) Eosinophils # [0.0-0.5 K/CMM] 0.1 K/CMM (03/23/15 3:47 AM) 0.1 K/CMM (03/16/15 10:04 AM) Basophils # [0.0-0.2 K/CMM] 13.5 seconds (03/16/15 10:04 AM) PT [12.0-14.7 seconds] 1.00 (03/16/15 10:04 AM) INR [0.85-1.17] 32.7 seconds (03/16/15 10:04 AM) PTT [22.9-35.8 seconds] Immunizations Vaccine Date Refusal Reason pneumococcal 23-valent [...] No Assessment and Plan Extracted from: Title: IP [id number] Author: Cal Wan MD Date: 03/23/15 Impression and Plan Diagnosis Degenerative joint disease ([id number] M19.90, Working, Medical). Hypertension ([id number] I10, Working, Medical). Status post knee surgery ([id number] Z98.89, Working, Medical). 1. Hypertension: Stable with medication. 2. Degenerative joint disease of Left knee and S/P Left TKA: Now better PT and OT on case. Labs reviewed . Medically stable.
--- OUTSIDE RECORDS SUMMARY | 2018-09-17 06:24 | XMS REPORT | Summary of Care ---
Author Author [facility] Organization [facility] Address Unknown Phone Unavailable Encounter HQ Nabila(NORMAN) [id number] Date(s): 07/24/17 - 07/24/17 [facility] [address] [place] [address]- [phone] Encounter Diagnosis Dislocation of left patella (Discharge Diagnosis) - 07/24/17 Discharge Disposition: Home or Self Care Attending Physician: Tatiana Guzman MD Vital Signs Most recent to 1 2 oldest [Reference Range]: Height 165.1 cm (07/24/17 4:06 PM) Temperature Oral 98.2 DegF 98.2 DegF [96.4-99.1 DegF] (07/24/17 6:50 PM) (07/24/17 4:06 PM) Blood Pressure 150/101 mmHg 153/95 mmHg [90-140/60-90 mmHg] *HI* *HI* (07/24/17 6:50 PM) (07/24/17 4:06 PM) Respiratory Rate 20 BRMIN 20 BRMIN [14-20 BRMIN] (07/24/17 6:50 PM) (07/24/17 4:06 PM) Peripheral Pulse 107 bpm 108 bpm Rate [60-100 bpm] *HI* *HI* (07/24/17 6:50 PM) (07/24/17 4:06 PM) Weight 85.909 kg (07/24/17 4:06 PM) Body Mass Index 31.52 m2 (07/24/17 4:06 PM) Problem List Condition Effective Dates Status Health Status Informant Arthritis(Confirmed) Active Breast lump1 02/12/12 Active Hypertension(Confirm Active ed) Meniscus Active unstable(Confirmed) 1Data migrated from [employer] on 09/10/14. Allergies, Adverse Reactions, Alerts Substance Reaction Severity Status NKDA Active Medications fentaNYL 50 microgram, 1 mL, Route: IVP, Drug form: INJ, ONCE, Dosing Weight 85.909, kg, Priority: STAT, Start date: 07/24/17 17:36:00 CDT, Stop date: 07/24/17 17:36:00 CDT Notes: (Same as: Sublimaze) Preservative free. Start Date: 07/24/17 Stop Date: 07/24/17 Status: Completed morphine Sulfate 4 mg, 1 mL, Route: IM, Drug form: SOLN, ONCE, Dosing Weight 85.909, kg, Priority : STAT, Start date: 07/24/17 16:25:00 CDT, Stop date: 07/24/17 16:25:00 CDT Notes: (Same as:MORPhine Sulfate) Start Date: 07/24/17 Stop Date: 07/24/17 Status: Completed Results No data available for this section [...] Reg Smoking Cessation Counseling No entered on: 07/24/17 Assessment and Plan No data available for this section
--- OUTSIDE RECORDS SUMMARY | 2018-09-17 06:24 | XMS REPORT | CCD ---
Author Author Auto Generated Organization [facility] Address Unknown Phone Unavailable Care Team Providers Care Information Security Engineer Name Role Phone Loreta Craven RP Allergies, Adverse Reactions, Alerts Substance Reaction Status NKDA Active Problem List Condition Effective Dates Status Hypertension Active Meniscus unstable Active Medications Medication Instructions Start Date End Date Status Lyrica 75 mg oral 75 mg, 1 cap, PO, TID, 90 cap, 08/07/2012 Ordered capsule Substitution Allowed, CAP cefazolin 2 gm, 100 mL, Route: IVPB, Drug 08/11/2012 08/11/2012 Ordered form: INJ, ONCE, Dosing Weight 100, kg, Start date: 08/11/12 12:59:00, Stop date: 08/11/12 12:59:00 ketorolac 15 mg, 1 mL, Route: IVP, Drug form: 08/11/2012 08/11/2012 Discontinued INJ, Q6H, Dosing Weight 100, kg, PRN Breakthrough Pain, Start date: 08/11/12 13:58:00, Duration: 4 day, Stop date: 08/15/12 13:57:00 morphine Sulfate 2 mg, 1 mL, Route: IVP, Drug form: 08/11/2012 08/11/2012 Discontinued INJ, Q3H, Dosing Weight 100, kg, PRN Pain Score 1-3, Start date: 08/11/12 13:58:00, Duration: 30 day, Stop date: 09/10/12 13:57:00 morphine Sulfate 4 mg, 2 mL, Route: IVP, Drug form: 08/11/2012 08/11/2012 Discontinued INJ, Q3H, Dosing Weight 100, kg, PRN Pain Score 4-6, Start date: 08/11/12 13:58:00, Duration: 30 day, Stop date: 09/10/12 13:57:00 Ofirmev 1,000 mg, Route: IV, Drug form: 08/11/2012 08/11/2012 Discontinued INJ, ONCE, Dosing Weight 100, kg, PRN Pain, for > or=50 kg, Start date: 08/11/12 14:53:00 naloxone 0.04 mg, Route: IVP, Q2MIN, Dosing 08/11/2012 08/11/2012 Discontinued Weight 100, kg, PRN Narcotic Reversal, Start date: 08/11/12 14:53:00, Duration: 8 doses or times, Stop date: Limited # of times meperidine 12.5 mg, Route: IVP, Q30Min, Dosing 08/11/2012 08/11/2012 Discontinued Weight 100, kg, PRN Other -See Comment, For shivering, Start date: 08/11/12 14:53:00, Duration: 2 doses or times, Stop date: Limited # of times flumazenil 0.2 mg, Route: IVP, PRN, Dosing 08/11/2012 08/11/2012 Discontinued Weight 100, kg, PRN Benzodiazepine Reversal, Initial dose, Start date: 08/11/12 14:53:00, Duration: 30 day, Stop date: 09/10/12 14:52:00 fentanyl 25 microgram, Route: IVP, Q5Min, 08/11/2012 08/11/2012 Discontinued Dosing Weight 100, kg, PRN Pain Score 4-6, Start date: 08/11/12 14:53:00, Duration: 4 doses or times, Stop date: Limited # of times hydromorphone 0.5 mg, Route: IVP, Q5Min, Dosing 08/11/2012 08/11/2012 Discontinued Weight 100, kg, PRN Pain Score 4-6, Start date: 08/11/12 14:53:00, Duration: 5 doses or times, Stop date: Limited # of times acetaminophen-hydroc 1 tab, Route: PO, Dosing Weight 08/11/2012 08/11/2012 Discontinued odone 325 mg-5 mg 100, kg, Q4H, PRN Pain Score 1-3, oral tablet Start date: 08/11/12 14:53:00, Duration: 30 day, Stop date: 09/10/12 14:52:00 acetaminophen-hydroc 2 tab, Route: PO, Dosing Weight 08/11/2012 08/11/2012 Discontinued odone 325 mg-5 mg 100, kg, Q4H, PRN Pain Score 4-6, oral tablet Start date: 08/11/12 14:53:00, Duration: 30 day, Stop date: 09/10/12 14:52:00 ondansetron 4 mg, Route: IVP, ONCE, Dosing 08/11/2012 08/11/2012 Completed Weight 100, kg, PRN Nausea & Vomiting, Start date: 08/11/12 14:53:00 labetalol 5 mg, Route: IVP, Q5Min, Dosing 08/11/2012 08/11/2012 Discontinued Weight 100, kg, PRN Elevated BP, Start date: 08/11/12 14:53:00, Duration: 5 doses or times, Stop date: Limited # of times metoprolol 1 mg, Route: IVP, Q5Min, Dosing 08/11/2012 08/11/2012 Discontinued Weight 100, kg, PRN Elevated BP, Start date: 08/11/12 14:53:00, Duration: 5 doses or times, Stop date: Limited # of times Lactated Ringers 1,000 mL, Rate: 50 ml/hr, Infuse 08/11/2012 08/11/2012 Discontinued Injection IV 1000 mL over: 20 hr, Route: IV, Dosing Weight 100 kg, Total Volume: 1,000, Start date: 08/11/12 14:53:00, Duration: 30 day, Stop date: 09/10/12 14:52:00 Lactated Ringers 1,000 mL, Rate: 25 ml/hr, Infuse 08/11/2012 08/11/2012 Discontinued Injection IV 1000 mL over: 40 hr, Route: IV, Dosing Weight 100 kg, Total Volume: 1,000, Start date: 08/11/12 13:00:00, Duration: 30 day, Stop date: 09/10/12 12:59:00 Vital Signs Most recent to oldest [Reference Range]: 1 2 3 Height 167.64 cm (08/07/2012 13:52:00) Temperature Oral [96.4-99.1 DegF] 98 DegF (08/07/2012 14:33:00) Systolic Blood Pressure [90-140 mmHg] 133 mmHg (08/11/2012 15:00:00) 139 mmHg (08/11/2012 14:45:00) 132 mmHg (08/11/2012 14:30:00) Diastolic Blood Pressure [60-90 mmHg] 87 mmHg (08/11/2012 15:00:00) 85 mmHg (08/11/2012 14:45:00) 81 mmHg (08/11/2012 14:30:00) Respiratory Rate [14-20 BRMIN] 15 BRMIN (08/11/2012 15:15:00) 14 BRMIN (08/11/2012 15:00:00) 11 BRMIN *LOW* (08/11/2012 14:45:00) Peripheral Pulse Rate [60-100 bpm] 87 bpm (08/07/2012 14:33:00) Weight 100 kg (08/07/2012 13:52:00) Results CHEMISTRY Most recent to oldest [Reference Range]: 1 Sodium Lvl [135-145 mEq/L] 142 mEq/L (08/07/2012 14:45:00) Potassium Lvl [3.5-5.1 mEq/L] 4.3 mEq/L (08/07/2012 14:45:00) Chloride Lvl [95-109 mEq/L] 106 mEq/L (08/07/2012 14:45:00) CO2 [24-32 mEq/L] 29 mEq/L (08/07/2012 14:45:00) AGAP [10.0-20.0 mEq/L] 11.3 mEq/L (08/07/2012 14:45:00) Procedures Procedures Date Related Diagnosis Arthroplasty of the hip 05/23/2009 00:00:00 Breast biopsy and related procedures section 1 Laminectomy and discectomy Open reduction and fixation of fracture 1x2 1989, 1991
--- OUTSIDE RECORDS SUMMARY | 2018-09-17 06:24 | XMS REPORT | CCD ---
Author Author Auto Generated Organization [facility] Address Unknown Phone Unavailable Care Team Providers Care Manager Adult Name Role Phone Candido Lind RP Allergies, Adverse Reactions, Alerts Substance Reaction Status NKDA Active
--- OUTSIDE RECORDS SUMMARY | 2018-09-17 06:24 | XMS REPORT | Summary of Care ---
Author Author [facility] Address Unknown Phone Unavailable Encounter HQ Nabila(FIN) [id number] Date(s): 10/28/17 - 11/26/17 [facility] Encounter Diagnosis Lateral subluxation of left patella, subsequent encounter (Final) - 12/03/17 Lateral dislocation of left patella, subsequent encounter (Final) - Sprain of other specified parts of left knee, subsequent encounter (Final) - Stiffness of left knee, not elsewhere classified (Final) - Weakness (Final) - Other abnormalities of gait and mobility (Final) - Presence of left artificial knee joint (Final) - Essential (primary) hypertension (Final) - Discharge Disposition: Home or Self Care Attending Physician: Candido Lind Vital Signs No data available for this section Problem List Condition Effective Dates Status Health Status Informant Arthritis(Confirmed) Active Breast lump1 02/12/12 Active Hypertension(Confirm Active ed) Meniscus Active unstable(Confirmed) 1Data migrated from [employer] on 09/10/14. Allergies, Adverse Reactions, Alerts Substance [...]
--- OUTSIDE RECORDS SUMMARY | 2018-09-17 06:24 | XMS REPORT | CCD ---
Author Author Auto Generated Organization [facility] Address Unknown Phone Unavailable Care Team Providers Care Floor Care Technician Name Role Phone Gil Gil CP Allergies, Adverse Reactions, Alerts Substance Reaction Status NKDA Active Vital Signs Most recent to oldest [Reference Range]: 1 Height 167.64 cm (12/10/2011 10:42:00) Weight 102.273 kg (12/10/2011 10:42:00)
--- OUTSIDE RECORDS SUMMARY | 2018-09-17 06:24 | XMS REPORT | CCD ---
Author Author Auto Generated Organization [facility] Address Unknown Phone Unavailable Care Team Providers Care Lint Cleaner Name Role Phone ChartServer, Login CP Unavailable Damrais Pryor RP Denisha Arriaga CP Unavailable Allergies, Adverse Reactions, Alerts Substance Reaction Status NKDA ?? Active
--- OUTSIDE RECORDS SUMMARY | 2018-09-17 06:24 | XMS REPORT | CCD ---
Author Author Auto Generated Organization [facility] Address Unknown Phone Unavailable Care Team Providers Care Bond Runner Name Role Phone FlorinBenjie RP Allergies, Adverse Reactions, Alerts Substance Reaction Status NKDA Active Problem List Condition Effective Dates Status Hypertension Active Meniscus unstable Active
--- OUTSIDE RECORDS SUMMARY | 2018-09-17 06:24 | XMS REPORT | Summary of Care ---
Author Author [facility] Organization [facility] Address Unknown Phone Unavailable Encounter HQ Landon_danna(FIN) [id number] Date(s): 07/17/17 - 07/17/17 [facility] [address] [place] [address]- Encounter Diagnosis Unspecified lump in the left breast, upper inner quadrant (Final) - 07/24/17 Discharge Disposition: Home or Self Care Attending Physician: Damaris Pryor MD Referring Physician: Damaris Pryor MD Vital Signs No data available for this section Problem List Condition Effective Dates Status Health Status Informant Arthritis(Confirmed) Active Breast lump1 02/12/12 Active Hypertension(Confirm Active ed) Meniscus Active unstable(Confirmed) 1Data migrated from [employer] on 09/10/14. Allergies, Adverse Reactions, Alerts Substance [...]
--- OUTSIDE RECORDS SUMMARY | 2018-09-17 06:24 | XMS REPORT | Summary of Care ---
Author Author [facility] Address Unknown Phone Unavailable Encounter HQ Encntr_alijoe(FIN) [id number] Date(s): 07/04/17 - 07/04/17 [facility] Attending Physician: Candido Lind Vital Signs No data available for this section Problem List Condition Effective Dates Status Health Status Informant Arthritis(Confirmed) Active Breast lump1 02/12/12 Active Hypertension(Confirm Active ed) Meniscus Active unstable(Confirmed) 1Data migrated from [employer] on 09/10/14. Allergies, Adverse Reactions, Alerts Substance [...]
--- OUTSIDE RECORDS SUMMARY | 2018-09-17 06:24 | XMS REPORT | Summary of Care ---
Author Organization Unknown Address Unknown Phone Unavailable Encounter HQ Gerardontr_danna(NORMAN) [id number] Date(s): 03/24/14 - 03/24/14 [facility] [address] Discharge Disposition: Home Physician Attending: Candido Lind Physician_Referring: Candido Lind Reason for Visit 836.0=ACUTE MEDIAL MENISCAL TEAR/836.1=ACUTE LATERAL ME Problem List Condition Effective Dates Status Health Status Informant Hypertension(Confirm Active ed) Meniscus Active unstable(Confirmed) Allergies, Adverse Reactions, Alerts Substance Reaction Severity Status NKDA Active Medications No data available for this section Medications Administered During Your Visit No data available for this section Immunizations No data available for this section
--- OUTSIDE RECORDS SUMMARY | 2018-09-17 06:24 | XMS REPORT | Summary of Care ---
Author Author [facility] Organization [facility] Address Unknown Phone Unavailable Encounter CHELSIE Dahl(NORMAN) [id number] Date(s): 08/26/17 - 08/26/17 [facility] [address] [place] [address]- Discharge Disposition: Home or Self Care Attending Physician: Candido Lind Referring Physician: Candido Lind Vital Signs 1 2 3 Most recent to oldest [Reference Range]: 167.64 cm (08/25/17 3:47 PM) Height 97.8 DegF (08/25/17 4:08 PM) Temperature Oral [96.4-99.1 DegF] 127/81 mmHg (08/26/17 7:00 PM) 127/90 mmHg (08/26/17 6:30 PM) 125/98 mmHg (08/26/17 6:15 PM) Blood Pressure [90-140/60-90 mmHg] 16 BRMIN (08/26/17 7:00 PM) 15 BRMIN (08/26/17 6:30 PM) 18 BRMIN (08/26/17 6:15 PM) Respiratory Rate [14-20 BRMIN] 97 bpm (08/25/17 4:08 PM) Peripheral Pulse Rate [60-100 bpm] 93.727 kg (08/25/17 3:47 PM) Weight 33.35 m2 (08/25/17 3:47 PM) Body Mass Index Problem List Condition Effective Dates Status Health Status Informant Arthritis(Confirmed) Active Breast lump1 02/12/12 Active Hypertension(Confirm Active ed) Meniscus Active unstable(Confirmed) 1Data migrated from [facility] on 09/10/14. Allergies, Adverse Reactions, Alerts Substance Reaction Severity Status NKDA Active Medications albuterol-ipratropium 2.5-0.5 mg inhalation solution 3 mL, Route: NEB, Dosing Weight 93.727, kg, ONCE, STAT, Start date: 08/26/17 12: 43:00 CDT, Stop date: 08/26/17 12:43:00 CDT Start Date: 08/26/17 Stop Date: 08/26/17 Status: Discontinued ANES acetaminophen 1,000 mg, Route: PO, Drug form: TAB, ONCE, Dosing Weight 93.727, kg, PRN Pain Sc ore 1-3, Start date: 08/26/17 16:23:00 CDT Start Date: 08/26/17 Stop Date: 08/26/17 Status: Discontinued ANES albuterol 0.083% inhalation solution 2.49 mg, Route: NEB, Q20Min, Dosing Weight 93.727, kg, PRN Wheezing, Priority: S TAT, Start date: 08/26/17 16:23:00 CDT, Duration: 30 day, Stop date: 09/25/17 16 :22:00 CDT Start Date: 08/26/17 Stop Date: 08/26/17 Status: Discontinued ANES dexamethasone 4 mg, Route: IVP, ONCE, Dosing Weight 93.727, kg, PRN Nausea & Vomiting, Start date: 08/26/17 16:23:00 CDT Start Date: 08/26/17 Stop Date: 08/26/17 Status: Discontinued ANES diphenhydrAMINE 12.5 mg, Route: IVP, Drug form: INJ, Q6H, Dosing Weight 93.727, kg, PRN Itching, Start date: 08/26/17 16:23:00 CDT, Duration: 30 day, Stop date: 09/25/17 16:22: 00 CDT Start Date: 08/26/17 Stop Date: 08/26/17 Status: Discontinued ANES esmolol 10 mg, Route: IVP, Q5Min, Dosing Weight 93.727, kg, PRN Other -See Comment, Star t date: 08/26/17 16:23:00 CDT, Duration: 5 doses or times, Stop date: Limited # of times Start Date: 08/26/17 Stop Date: 08/26/17 Status: Discontinued ANES fentaNYL 50 microgram, Route: IVP, Q5Min, Dosing Weight 93.727, kg, PRN Pain Score 7-10, Priority: Routine, Start date: 08/26/17 16:23:00 CDT, Duration: 2 doses or times , Stop date: Limited # of times Start Date: 08/26/17 Stop Date: 08/26/17 Status: Discontinued ANES fentaNYL 25 microgram, Route: IVP, Q5Min, Dosing Weight 93.727, kg, PRN Pain Score 4-6, P riority: Routine, Start date: 08/26/17 16:23:00 CDT, Duration: 4 doses or times, Stop date: Limited # of times Start Date: 08/26/17 Stop Date: 08/26/17 Status: Discontinued ANES flumazenil 0.2 mg, Route: IVP, PRN, Dosing Weight 93.727, kg, PRN Benzodiazepine Reversal, Initial dose, Start date: 08/26/17 16:23:00 CDT, Duration: 30 day, Stop date: 16:22:00 CDT Start Date: 08/26/17 Stop Date: 08/26/17 Status: Discontinued ANES hydrALAZINE 10 mg, Route: IVP, Q20Min, Dosing Weight 93.727, kg, PRN Elevated BP, Start date : 08/26/17 16:23:00 CDT, Duration: 2 doses or times, Stop date: Limited # of mateo es Start Date: 08/26/17 Stop Date: 08/26/17 Status: Discontinued ANES HYDROmorphone 0.5 mg, Route: IVP, Q5Min, Dosing Weight 93.727, kg, PRN Pain Score 7-10, Start date: 08/26/17 16:23:00 CDT, Duration: 4 doses or times, Stop date: Limited # of times Start Date: 08/26/17 Stop Date: 08/26/17 Status: Discontinued ANES labetalol 10 mg, Route: IVP, Q5Min, Dosing Weight 93.727, kg, PRN Elevated BP, Start date: 08/26/17 16:23:00 CDT, Duration: 5 doses or times, Stop date: Limited # of times Start Date: 08/26/17 Stop Date: 08/26/17 Status: Discontinued ANES meperidine 12.5 mg, Route: IVP, Q30Min, Dosing Weight 93.727, kg, PRN Other -See Comment, F or shivering, Start date: 08/26/17 16:23:00 CDT, Duration: 2 doses or times, Sto p date: Limited # of times Start Date: 08/26/17 Stop Date: 08/26/17 Status: Discontinued ANES morphine Sulfate 4 mg, Route: IVP, Q5Min, Dosing Weight 93.727, kg, PRN Pain Score 7-10, Start da te: 08/26/17 16:23:00 CDT, Duration: 3 doses or times, Stop date: Limited # of t imes Start Date: 08/26/17 Stop Date: 08/26/17 Status: Discontinued ANES morphine Sulfate 2 mg, Route: IVP, Q5Min, Dosing Weight 93.727, kg, PRN Pain Score 4-6, Start nilda e: 08/26/17 16:23:00 CDT, Duration: 5 doses or times, Stop date: Limited # of ti mes Start Date: 08/26/17 Stop Date: 08/26/17 Status: Discontinued ANES naloxone 0.4 mg, Route: IVP, Q2MIN, Dosing Weight 93.727, kg, PRN Narcotic Reversal, Star t date: 08/26/17 16:23:00 CDT, Duration: 8 doses or times, Stop date: Limited # of times Start Date: 08/26/17 Stop Date: 08/26/17 Status: Discontinued ANES ondansetron 4 mg, Route: IVP, ONCE, Dosing Weight 93.727, kg, PRN Nausea & Vomiting, Start date: 08/26/17 16:23:00 CDT Start Date: 08/26/17 Stop Date: 08/26/17 Status: Discontinued ANES oxyCODONE 10 mg, Route: PO, Drug form: TAB, Q4H, Dosing Weight 93.727, kg, PRN Pain Score 7-10, Start date: 08/26/17 16:23:00 CDT, Duration: 30 day, Stop date: 09/25/17 1 6:22:00 CDT Start Date: 08/26/17 Stop Date: 08/26/17 Status: Discontinued ANES oxyCODONE 5 mg, Route: PO, Drug form: TAB, Q4H, Dosing Weight 93.727, kg, PRN Pain Score 4 -6, Start date: 08/26/17 16:23:00 CDT, Duration: 30 day, Stop date: 09/25/17 16: 22:00 CDT Start Date: 08/26/17 Stop Date: 08/26/17 Status: Discontinued ceFAZolin (ANES) Route: IV, Drug form: INJ, ONCE, Stop date: 08/26/17 15:31:00 CDT Start Date: 08/26/17 Stop Date: 08/26/17 Status: Completed dexamethasone (ANES) Route: IV, Drug form: INJ, ONCE, Stop date: 08/26/17 15:31:00 CDT Start Date: 08/26/17 Stop Date: 08/26/17 Status: Completed fentaNYL 50 microgram, Route: IVP, ONCE, Dosing Weight 93.727, kg, Start date: 08/26/17 1 2:44:00 CDT, Stop date: 08/26/17 12:44:00 CDT Start Date: 08/26/17 Stop Date: 08/26/17 Status: Completed fentaNYL (ANES) Route: IV, Drug form: INJ, ONCE, Stop date: 08/26/17 15:26:00 CDT Start Date: 08/26/17 Stop Date: 08/26/17 Status: Completed Keflex 500 mg oral capsule 500 mg=1 cap, PO, QID, X 10 day, # 40 cap, 0 Refill(s) Start Date: 08/25/17 Stop Date: 09/04/17 Status: Ordered ketOROLAC (ANES) IV, ONCE Start Date: 08/26/17 Stop Date: 08/26/17 Status: Completed Lactated Ringers Injection IV (ANES) 1000 mL Route: IV, Total Volume: 1,000, Start date: 08/26/17 14:36:00 CDT, Stop date: 15:36:00 CDT Start Date: 08/26/17 Stop Date: 08/26/17 Status: Completed Lactated Ringers Injection IV 1000 mL 1,000 mL, Rate: 125 ml/hr, Infuse over: 8 hr, Route: IV, Dosing Weight 93.727 kg , Total Volume: 1,000, Start date: 08/26/17 16:23:00 CDT, Duration: 30 day, Stop date: 09/25/17 16:22:00 CDT, 2.12, m2 Start Date: 08/26/17 Stop Date: 08/26/17 Status: Discontinued Lactated Ringers Injection IV 1000 mL 1,000 mL, Rate: 25 ml/hr, Infuse over: 40 hr, Route: IV, Dosing Weight 93.727 kg , Total Volume: 1,000, Start date: 08/26/17 12:43:00 CDT, Duration: 30 day, Stop date: 09/25/17 12:42:00 CDT, 2.12, m2 Start Date: 08/26/17 Stop Date: 08/26/17 Status: Discontinued Macrobid 100 mg oral capsule 100 mg=1 cap, PO, BID, # 20 cap, 0 Refill(s) Start Date: 08/25/17 Stop Date: 09/04/17 Status: Ordered midazolam (ANES) Route: IV, Drug form: SOLN, ONCE, Stop date: 08/26/17 15:26:00 CDT Start Date: 08/26/17 Stop Date: 08/26/17 Status: Completed ondansetron (ANES) Route: IV, Drug form: INJ, ONCE, Stop date: 08/26/17 15:31:00 CDT Start Date: 08/26/17 Stop Date: 08/26/17 Status: Completed phenylephrine (ANES) Route: IV, Drug form: INJ, ONCE, Stop date: 08/26/17 15:31:00 CDT Start Date: 08/26/17 Stop Date: 08/26/17 Status: Completed propofol (ANES) Route: IV, Drug form: INJ, ONCE, Stop date: 08/26/17 15:26:00 CDT Start Date: 08/26/17 Stop Date: 08/26/17 Status: Completed Sodium Chloride 0.9% IV 500 mL 500 mL, Rate: 25 ml/hr, Infuse over: 20 hr, Route: IV, Dosing Weight 93.727 kg, Total Volume: 500, Start date: 08/26/17 12:43:00 CDT, Duration: 30 day, Stop nilda e: 09/25/17 12:42:00 CDT, 2.12, m2 Start Date: 08/26/17 Stop Date: 08/26/17 Status: Discontinued Tribenzor 10 mg-12.5 mg-40 mg oral tablet 1 tab, PO, Daily, 0 Refill(s) Start Date: 08/25/17 Stop Date: 08/25/17 Status: Completed Ultram 50 mg oral tablet 50 mg=1 tab, PO, Q4H, PRN for pain, X 10 day, # 60 tab, 2 Refill(s) Start Date: 08/26/17 Stop Date: 09/25/17 Status: Ordered Valium 5 mg oral tablet 5 mg=1 tab, PO, TID, PRN Spasm, # 60 tab, 1 Refill(s) Start Date: 08/26/17 Stop Date: 09/26/17 Status: Ordered Valium 5 mg oral tablet 5 mg=1 tab, PO, QID, PRN Spasm, # 30 tab, 0 Refill(s) Start Date: 08/25/17 Stop Date: 09/25/17 Status: Ordered Results ELECTROLYTES Most recent to 1 oldest [Reference Range]: Sodium Lvl [135-145 140 mEq/L mEq/L] (08/25/17 4:03 PM) Potassium Lvl 4.4 mEq/L [3.5-5.1 mEq/L] (08/25/17 4:03 PM) Chloride Lvl [95-109 103 mEq/L mEq/L] (08/25/17 4:03 PM) CO2 [24-32 mEq/L] 25 mEq/L (08/25/17 4:03 PM) AGAP [10.0-20.0 16.4 mEq/L mEq/L] (08/25/17 4:03 PM) CHEM PANEL Most recent to 1 oldest [Reference Range]: Creatinine Lvl 1.33 mg/dL [0.50-1.40 mg/dL] (08/25/17 4:03 PM) eGFR 46 mL/min/1.73m2 1 *NA* (08/25/17 4:03 PM) BUN [7-22 mg/dL] 23 mg/dL *HI* (08/25/17 4:03 PM) Glucose Lvl [70-99 83 mg/dL mg/dL] (08/25/17 4:03 PM) Calcium Lvl 9.4 mg/dL [8.5-10.5 mg/dL] (08/25/17 4:03 PM) 1Result Comment: The eGFR is calculated using [...] mul tiplied by the estimated BMI. HEMATOLOGY Most recent to 1 oldest [Reference Range]: WBC [3.7-10.4 K/CMM] 7.9 K/CMM (08/25/17 4:03 PM) RBC [4.20-5.40 3.82 M/CMM M/CMM] *LOW* (08/25/17 4:03 PM) Hgb [12.0-16.0 g/dL] 11.3 g/dL *LOW* (08/25/17 4:03 PM) Hct [36.0-48.0 %] 33.9 % *LOW* (08/25/17 4:03 PM) MCV [80.0-98.0 fL] 88.8 fL (08/25/17 4:03 PM) MCH [27.0-31.0 pg] 29.7 pg (08/25/17 4:03 PM) MCHC [32.0-36.0 33.4 g/dL g/dL] (08/25/17 4:03 PM) RDW [11.5-14.5 %] 14.9 % *HI* (08/25/17 4:03 PM) MPV [7.4-10.4 fL] 7.2 fL *LOW* (08/25/17 4:03 PM) Platelet [133-450 414 K/CMM K/CMM] (08/25/17 4:03 PM) Segs [45.0-75.0 %] 63.3 % (08/25/17 4:03 PM) Lymphocytes 23.5 % [20.0-40.0 %] (08/25/17 4:03 PM) Monocytes [2.0-12.0 9.6 % %] (08/25/17 4:03 PM) Eosinophils [0.0-4.0 3.0 % %] (08/25/17 4:03 PM) Basophils [0.0-1.0 0.6 % %] (08/25/17 4:03 PM) Segs-Bands # 5.0 K/CMM [1.5-8.1 K/CMM] (08/25/17 4:03 PM) Lymphocytes # 1.9 K/CMM [1.0-5.5 K/CMM] (08/25/17 4:03 PM) Monocytes # [0.0-0.8 0.8 K/CMM K/CMM] (08/25/17 4:03 PM) Eosinophils # 0.2 K/CMM [0.0-0.5 K/CMM] (08/25/17 4:03 PM) Basophils # [0.0-0.2 0.1 K/CMM K/CMM] (08/25/17 4:03 PM) Immunizations Given and Recorded Vaccine Date Status [...]
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
--- OUTSIDE RECORDS SUMMARY | 2018-09-17 06:25 | XMS REPORT | Summary of Care ---
Author Author [facility] Organization [facility] Address Unknown Phone Unavailable Encounter HQ Nabila([place]) [id number] Date(s): 11/11/15 - 11/13/15 [facility] [address] [place] [address]- Discharge Disposition: Home or Self Care Attending Physician: Artemio Edmondson MD Admitting Physician: Artemio Edmondson MD Vital Signs 1 2 3 Most recent to oldest [Reference Range]: 167.64 cm (11/11/15 8:48 PM) Height 97.9 DegF (11/13/15 11:26 AM) 97.6 DegF (11/13/15 8:11 AM) 97.8 DegF (11/13/15 4:15 AM) Temperature Oral [96.4-99.1 DegF] 153/106 mmHg *HI* (11/13/15 11:26 AM) 172/97 mmHg *HI* (11/13/15 8:11 AM) 145/85 mmHg *HI* (11/13/15 4:15 AM) Blood Pressure [90-140/60-90 mmHg] 18 BRMIN (11/13/15 11:26 AM) 14 BRMIN (11/13/15 9:14 AM) 18 BRMIN (11/13/15 8:11 AM) Respiratory Rate [14-20 BRMIN] 81 bpm (11/13/15 11:26 AM) 67 bpm (11/13/15 8:11 AM) 69 bpm (11/13/15 4:15 AM) Peripheral Pulse Rate [60-100 bpm] 89.091 kg (11/11/15 8:48 PM) Weight 31.7 m2 (11/11/15 8:48 PM) Body Mass Index Problem List Condition Effective Dates Status Health Status Informant Arthritis(Confirmed) Active Breast lump1 02/12/12 Active Hip joint Active prosthesis(Confirmed ) Hypertension(Confirm Active ed) Meniscus Active unstable(Confirmed) 1Data migrated from [facility] on 09/10/14. Allergies, Adverse Reactions, Alerts Substance Reaction Severity Status NKDA Active Medications acetaminophen 650 mg, 2 tab, Route: PO, Drug form: TAB, Q4H, Dosing Weight 89.091, kg, PRN Leonard n 1-3/Temp > 100.4 F, Start date: 11/12/15 1:31:00 CDT, Duration: 30 day, Stop date: 12/12/15 1:30:00 CDT Notes: Do not exceed 4 gm/day. (Same as: Tylenol) Start Date: 11/12/15 Stop Date: 11/13/15 Status: Discontinued acetaminophen-hydrocodone 325 mg-5 mg oral tablet 1 tab, Route: PO, Drug Form: TAB, Dosing Weight 89.091, kg, Q4H, PRN Pain Score 4-6, Start date: 11/12/15 1:31:00 CDT, Duration: 30 day, Stop date: 12/12/15 1:3 0:00 CDT Notes: (Same as: [place] 325/5) Do not exceed 4gm/day of acetaminophen. Start Date: 11/12/15 Stop Date: 11/13/15 Status: Discontinued Dilaudid 2 mg, Route: IVP, ONCE, Dosing Weight 89.091, kg, Priority: STAT, Start date: 21:17:00 CDT, Stop date: 11/11/15 21:17:00 CDT Start Date: 11/11/15 Stop Date: 11/11/15 Status: Completed docusate 100 mg, 1 cap, Route: PO, Drug form: CAP, BID, Dosing Weight 89.091, kg, PRN Con stipation, Start date: 11/12/15 1:31:00 CDT, Duration: 30 day, Stop date: 1:30:00 CDT Notes: (Same as: Colace) (Do Not Crush) Start Date: 11/12/15 Stop Date: 11/13/15 Status: Discontinued enoxaparin 40 mg, 0.4 mL, Route: SUB-Q, Drug form: INJ, [id number], Dosing Weight 89.091, kg, Start date: 11/12/15 7:00:00 CDT, Duration: 30 day, Stop date: 12/11/15 7:00:00 CDT Notes: (Same as: Lovenox) Start Date: 11/12/15 Stop Date: 11/13/15 Status: Discontinued hydromorphone 1 mg, Route: IV, ONCE, Dosing Weight 89.091, kg, Start date: 11/11/15 23:42:00 C DT, Stop date: 11/11/15 23:42:00 CDT Start Date: 11/11/15 Stop Date: 11/11/15 Status: Completed morphine Sulfate 4 mg, 2 mL, Route: IVP, Drug form: INJ, Q4H, Dosing Weight 89.091, kg, PRN Pain Score 7-10, Start date: 11/12/15 1:31:00 CDT, Duration: 30 day, Stop date: 12/11 1:30:00 CDT Notes: (Same as:MORPhine Sulfate) Start Date: 11/12/15 Stop Date: 11/13/15 Status: Discontinued ondansetron 4 mg, 2 mL, Route: IVP, Drug form: INJ, ONCE, Dosing Weight 89.091, kg, Priority : STAT, Start date: 11/11/15 21:27:00 CDT, Stop date: 11/11/15 21:27:00 CDT Notes: (Same as: Zohra) MEDICATION WASTE Product Size: 4 mgProduct Was manjinder: ___ mg Start Date: 11/11/15 Stop Date: 11/11/15 Status: Completed ondansetron 4 mg, 2 mL, Route: IVP, Drug form: INJ, Q6H, Dosing Weight 89.091, kg, PRN Nause a & Vomiting, Start date: 11/12/15 1:31:00 CDT, Duration: 30 day, Stop date: 12/12/15 1:30:00 CDT Notes: (Same as: Zohra) MEDICATION WASTE Product Size: 4 mgProduct Was manjinder: ___ mg Start Date: 11/12/15 Stop Date: 11/13/15 Status: Discontinued propofol 89.091 mg, 8.91 mL, Route: IVP, Drug form: SUSP, ONCE, Dosing Weight 89.091, kg, Priority: STAT, Start date: 11/11/15 21:56:00 CDT, Stop date: 11/11/15 21:56:00 CDT Notes: If Diprivan - change bottle & tubing every 12 hrPer state nursing law propofol can only be given by a nurse if patient is intubated or being intubated (unless the nurse is a SUPPLIER MANAGER). Same as: Diprivan Start Date: 11/11/15 Stop Date: 11/12/15 Status: Completed propofol 89.091 mg, 8.91 mL, Route: IVP, Drug form: INJ, ONCE, Dosing Weight 89.091, kg, Priority: STAT, Start date: 11/11/15 21:28:00 CDT, Stop date: 11/11/15 21:28:00 CDT Notes: If Propoven - change bottle & tubing every 6 hr.Per state nursing law propofol can only be given by a nurse if patient is intubated or being intubated (unless the nurse is a SUPPLIER MANAGER). Same as: Propoven, [employer] PropovenNon [employer] Start Date: 11/11/15 Stop Date: 11/11/15 Status: Deleted Saline Flush 0.9% 10 mL, Route: IVP, Drug Form: INJ, Dosing Weight 89.091, kg, PRN, PRN Line Flush , Start date: 11/11/15 21:27:00 CDT, Duration: 30 day, Stop date: 12/11/15 21:26 :00 CDT Notes: (Same as: BD Posiflush) Start Date: 11/11/15 Stop Date: 11/12/15 Status: Discontinued Saline Flush 0.9% 10 ml, Route: IVP, Drug Form: INJ, Dosing Weight 89.091, kg, PRN, PRN Line Flush , Start date: 11/12/15 1:31:00 CDT, Duration: 30 day, Stop date: 12/12/15 1:30:0 0 CDT Notes: (Same as: BD Posiflush) Start Date: 11/12/15 Stop Date: 11/13/15 Status: Discontinued Sodium Chloride 0.9% (Bolus) IV 1,000 mL, 1,000 ml/hr, Infuse Over: 1 hr, Route: IV, 1,000, Drug form: INJ, ONCE , Priority: STAT, Dosing Weight 89.091 kg, Start date: 11/11/15 21:27:00 CDT, Du ration: 1 doses or times, Stop date: 11/11/15 21:27:00 CDT Start Date: 11/11/15 Stop Date: 11/11/15 Status: Completed sodium chloride 0.9% 1000 ml INJ 1,000 mL 1,000 mL, Rate: 100 ml/hr, Infuse over: 10 hr, Route: IV, Dosing Weight 89.091 k g, Total Volume: 1,000, Start date: 11/12/15 1:31:00 CDT, Duration: 30 day, Stop date: 12/12/15 1:30:00 CDT Start Date: 11/12/15 Stop Date: 11/12/15 Status: Discontinued sodium chloride 0.9% 1000 ml INJ 1,000 mL 1,000 mL, Rate: 125 ml/hr, Infuse over: 8 hr, Route: IV, Dosing Weight 89.091 kg , Total Volume: 1,000, Priority: STAT, Start date: 11/11/15 21:28:00 CDT, Durati on: 1 doses or times, Stop date: 11/12/15 5:27:00 CDT Start Date: 11/11/15 Stop Date: 11/12/15 Status: Discontinued Results ELECTROLYTES 1 2 3 Most recent to oldest [Reference Range]: 143 mEq/L (11/12/15 4:00 AM) 140 mEq/L (11/11/15 9:35 PM) Sodium Lvl [135-145 mEq/L] 3.7 mEq/L (11/12/15 4:00 AM) 3.6 mEq/L (11/11/15 9:35 PM) Potassium Lvl [3.5-5.1 mEq/L] 109 mEq/L (11/12/15 4:00 AM) 105 mEq/L (11/11/15 9:35 PM) Chloride Lvl [95-109 mEq/L] 27 mEq/L (11/12/15 4:00 AM) 27 mEq/L (11/11/15 9:35 PM) CO2 [24-32 mEq/L] 10.7 mEq/L (11/12/15 4:00 AM) 11.6 mEq/L (11/11/15 9:35 PM) AGAP [10.0-20.0 mEq/L] CHEM PANEL 1 2 3 Most recent to oldest [Reference Range]: 0.84 mg/dL (11/12/15 9:30 AM) 0.86 mg/dL (11/12/15 4:00 AM) 0.91 mg/dL (11/11/15 9:35 PM) Creatinine Lvl [0.50-1.40 mg/dL] 80 mL/min/1.73m2 1 *NA* (11/12/15 9:30 AM) 79 mL/min/1.73m2 2 *NA* (11/12/15 4:00 AM) 73 mL/min/1.73m2 3 *NA* (11/11/15 9:35 PM) eGFR 16 mg/dL (11/12/15 4:00 AM) 19 mg/dL (11/11/15 9:35 PM) BUN [7-22 mg/dL] 21 (11/11/15 9:35 PM) B/C Ratio [6-25] 103 mg/dL *HI* (11/12/15 4:00 AM) 95 mg/dL (11/11/15 9:35 PM) Glucose Lvl [70-99 mg/dL] 7.4 g/dL (11/11/15 9:35 PM) Total Protein [6.4-8.4 g/dL] 4.1 g/dL (11/11/15 9:35 PM) Albumin Lvl [3.5-5.0 g/dL] 3.3 g/dL (11/11/15 9:35 PM) Globulin [2.0-4.0 g/dL] 1.2 (11/11/15 9:35 PM) A/G Ratio [0.7-1.6] 8.4 mg/dL *LOW* (11/12/15 4:00 AM) 9.1 mg/dL (11/11/15 9:35 PM) Calcium Lvl [8.5-10.5 mg/dL] 18 unit/L (11/11/15 9:35 PM) ALT [0-65 unit/L] 17 unit/L (11/11/15 9:35 PM) AST [0-37 unit/L] 92 unit/L (11/11/15 9:35 PM) Alk Phos [39-136 unit/L] 0.2 mg/dL (11/11/15 9:35 PM) Bili Total [0.2-1.3 mg/dL] 1Result Comment: The [...] be mul tiplied by the estimated BMI. ENDOCRINOLOGY 1 2 3 Most recent to oldest [Reference Range]: Negative *NA* (11/11/15 9:35 PM) S Preg [Negative] HEMATOLOGY 1 2 3 Most recent to oldest [Reference Range]: 7.4 K/CMM (11/12/15 4:00 AM) 8.8 K/CMM (11/11/15 9:35 PM) WBC [3.7-10.4 K/CMM] 3.72 M/CMM *LOW* (11/12/15 4:00 AM) 4.35 M/CMM (11/11/15 9:35 PM) RBC [4.20-5.40 M/CMM] 11.1 g/dL *LOW* (11/12/15 4:00 AM) 12.9 g/dL (11/11/15 9:35 PM) Hgb [12.0-16.0 g/dL] 33.4 % *LOW* (11/12/15 4:00 AM) 39.3 % (11/11/15 9:35 PM) Hct [36.0-48.0 %] 89.8 fL (11/12/15 4:00 AM) 90.2 fL (11/11/15 9:35 PM) MCV [80.0-98.0 fL] 29.8 pg (11/12/15 4:00 AM) 29.6 pg (11/11/15 9:35 PM) MCH [27.0-31.0 pg] 33.2 g/dL (11/12/15 4:00 AM) 32.8 g/dL (11/11/15 9:35 PM) MCHC [32.0-36.0 g/dL] 14.5 % (11/12/15 4:00 AM) 14.3 % (11/11/15 9:35 PM) RDW [11.5-14.5 %] 296 K/CMM (11/12/15 9:30 AM) 283 K/CMM (11/12/15 4:00 AM) 338 K/CMM (11/11/15 9:35 PM) Platelet [133-450 K/CMM] 8.0 fL (11/12/15 4:00 AM) 9.0 fL (11/11/15 9:35 PM) MPV [7.4-10.4 fL] 57.7 % (11/12/15 4:00 AM) 60.9 % (11/11/15 9:35 PM) Segs [45.0-75.0 %] 26.1 % (11/12/15 4:00 AM) 27.0 % (11/11/15 9:35 PM) Lymphocytes [20.0-40.0 %] 12.2 % *HI* (11/12/15 4:00 AM) 8.1 % (11/11/15 9:35 PM) Monocytes [2.0-12.0 %] 3.1 % (11/12/15 4:00 AM) 3.0 % (11/11/15 9:35 PM) Eosinophils [0.0-4.0 %] 0.9 % (11/12/15 4:00 AM) 1.0 % (11/11/15 9:35 PM) Basophils [0.0-1.0 %] 4.3 K/CMM (11/12/15 4:00 AM) 5.4 K/CMM (11/11/15 9:35 PM) Segs-Bands # [1.5-8.1 K/CMM] 1.9 K/CMM (11/12/15 4:00 AM) 2.4 K/CMM (11/11/15 9:35 PM) Lymphocytes # [1.0-5.5 K/CMM] 0.9 K/CMM *HI* (11/12/15 4:00 AM) 0.7 K/CMM (11/11/15 9:35 PM) Monocytes # [0.0-0.8 K/CMM] 0.2 K/CMM (11/12/15 4:00 AM) 0.3 K/CMM (11/11/15 9:35 PM) Eosinophils # [0.0-0.5 K/CMM] 0.1 K/CMM (11/12/15 4:00 AM) 0.1 K/CMM (11/11/15 9:35 PM) Basophils # [0.0-0.2 K/CMM] 12.9 seconds (11/11/15 9:35 PM) PT [12.0-14.7 seconds] 0.94 (11/11/15 9:35 PM) INR [0.85-1.17] 27.2 seconds (11/12/15 9:30 AM) PTT [22.9-35.8 seconds] Immunizations Given and Recorded [...] No Assessment and Plan Extracted from: Title: Clinical Document Author: Artemio Edmondson MD Date: 11/13/15 Progress Daily [facility] Completed: Nov, 13:57 by Artemio Edmondson MD RM: 237 - 2W, SE [id number] (: 1965) F Attending: Artemio Edmondson MDPhone: Service: Internal Medicine Reason for Admission: RIGHT UNSTABLE HIP, STATUS POST DISLOCATION Working DRG: None Documented Code status: Full Code [Ordered]Current diet: Isolation: None Documented Allergies: NKDA SUBJECTIVE pt feels better no pain in knee no difficult to walk OBJECTIVE HEENT: peerla Heart:s1,s2,No murmur Lungs:B/L equal air entries,No wheezing, no rales,No crackles Abd:Bowel sounds present, NT,ND Extremities:NO edema Neurology:AAOX3 NO FN Skin: intact, no lesions Review of Systems Constitutional: Negative. Eye: Negative. Ear/Nose/Mouth/Throat: Negative. Respiratory: Negative. Cardiovascular: Negative. Gastrointestinal: Negative. Genitourinary: Negative. Hematology/Lymphatics: Negative. Endocrine: Negative. Musculoskeletal: Negative. Integumentary: Negative. Neurologic: Negative. Psychiatric: Negative. Labs (Last four charted values) WBC 7.4(NOV 11)8.8(NOV 10) Hgb L 11.1(NOV 11)12.9(NOV 10) Hct L 33.4(NOV 11)39.3(NOV 10) Plt 296(NOV 11)283(NOV 11)338(NOV 10) Na 143(NOV 11)140(NOV 10) K 3.7(NOV 11)3.6(NOV 10) CO2 27(NOV 11)27(NOV 10) Cl 109(NOV 11)105(NOV 10) Cr 0.84(NOV 11)0.86(NOV 11)0.91(NOV 10) BUN 16(NOV 11)19(NOV 10) Glucose Random H 103(NOV 11)95(NOV 10) Ca L 8.4(NOV 11)9.1(NOV 10) PT 12.9(NOV 10) INR 0.94(NOV 10) PTT 27.2(NOV 11) ASSESSMENT & EXAM knee dislocation s/p knee surgery arthritis PLAN & TREATMENT going for home f/u dr Lind DIAGNOSES & PROBLEMS Ready for Discharge (Yes/No)? [place] still necessary (Yes/No): Line still necessary (Yes/No): (no lab data in past 24 hours) VitalsTmp(F)[id number] 11/12 11:[id number] 21% 11/12 09:14 1498 21% 11/12 08:1197.426376/303379 21% 11/12 04:1597.193516/908433--- 11/12 00:[id number]/[id number]--- 24 Hr Tmax: 98.6F (37.00c) at 11/11 16:50Vital Signs are the last 5 in the past 48 hours. DateWt(kg)Wt(lb)Ht(cm)Ht(in)Method 11/10 (initial) 89.09 196.00Estimated 67.64 66.00Stated I&ORecordInOutBal 11/123hr Tot 1 0 1 10/3123hr Tot 542 0 542 Medications (7) Active Scheduled Meds (1): 11/12/15 enoxaparin 40 mg SUB-Q [id number] Unscheduled Meds: None PRN Meds (6): 11/12/15 acetaminophen-hydrocodone (acetaminophen-hydrocodone 325 mg-5 mg oral tablet) 1 tab PO Q4H 11/12/15 acetaminophen 650 mg PO Q4H 11/12/15 docusate 100 mg PO BID 11/12/15 morphine Sulfate 4 mg IVP Q4H 11/12/15 ondansetron 4 mg IVP Q6H 11/12/15 sodium chloride (Saline Flush 0.9%) 10 ml IVP PRN One Time Meds: None Continuous Infusions: None Extracted from: Title: General Admission H&P * Author: Renetta Chand Date: 11/12/15 Willam EDWARD Impression and Plan Rt Hip Total arthroplasty dislocation: evalauted by ortho, plan to manage conservatively, pending custom abduction brace with OPA bracing cont current pain meds, ortho f.u DVT ppx: Lovenox
--- OUTSIDE RECORDS SUMMARY | 2018-09-17 06:25 | XMS REPORT | Summary of Care ---
Author Author [facility] Organization [facility] Address Unknown Phone Unavailable Encounter CHELSIE Dahl(NORMAN) [id number] Date(s): 12/28/15 - 12/28/15 [facility] [address] [employer] provided by [facility] [place] [address]- Discharge Diagnosis: Dislocation of hip, posterior, right, closed Discharge Disposition: Home or Self Care Attending Physician: Tatiana Guzman MD Admitting Physician: Arnoldo Felton MD Vital Signs 1 2 3 Most recent to oldest [Reference Range]: 98.2 DegF (12/28/15 3:34 PM) Temperature Oral [96.4-99.1 DegF] 176/78 mmHg *HI* (12/28/15 10:00 PM) 169/95 mmHg *HI* (12/28/15 8:24 PM) 185/103 mmHg *HI* (12/28/15 8:20 PM) Blood Pressure [90-140/60-90 mmHg] 52 BRMIN *HI* (12/28/15 10:00 PM) 24 BRMIN *HI* (12/28/15 8:24 PM) 19 BRMIN (12/28/15 8:20 PM) Respiratory Rate [14-20 BRMIN] 80 bpm (12/28/15 3:34 PM) Peripheral Pulse Rate [60-100 bpm] Problem List Condition Effective Dates Status Health Status Informant Arthritis(Confirmed) Active Breast lump1 02/12/12 Active Hip joint Active prosthesis(Confirmed ) Hypertension(Confirm Active ed) Meniscus Active unstable(Confirmed) 1Data migrated from [employer] on 09/10/14. Allergies, Adverse Reactions, Alerts Substance Reaction Severity Status NKDA Active Medications Dilaudid 1 mg, Route: IV, ONCE, Dosing Weight 89.091, kg, Start date: 12/28/15 19:33:00 C DT, Stop date: 12/28/15 19:33:00 CDT Start Date: 12/28/15 Stop Date: 12/28/15 Status: Completed Dilaudid 1 mg, Route: IV, ONCE, Dosing Weight 89.091, kg, Start date: 12/28/15 17:26:00 C DT, Stop date: 12/28/15 17:26:00 CDT Start Date: 12/28/15 Stop Date: 12/28/15 Status: Completed ketAMINE 100 mg, Route: IVP, ONCE, Dosing Weight 89.091, kg, Priority: STAT, Start date: 12/28/15 18:32:00 CDT, Stop date: 12/28/15 18:32:00 CDT Start Date: 12/28/15 Stop Date: 12/28/15 Status: Completed morphine Sulfate 4 mg, Route: IVP, ONCE, Dosing Weight 89.091, kg, Priority: STAT, Start date: 16:09:00 CDT, Stop date: 12/28/15 16:09:00 CDT Start Date: 12/28/15 Stop Date: 12/28/15 Status: Completed ondansetron 4 mg, Route: IVP, Drug form: INJ, ONCE, Dosing Weight 89.091, kg, Priority: STAT , Start date: 12/28/15 16:09:00 CDT, Stop date: 12/28/15 16:09:00 CDT Start Date: 12/28/15 Stop Date: 12/28/15 Status: Completed propofol 100 mg, Route: IVP, ONCE, Dosing Weight 89.091, kg, Priority: STAT, Start date: 12/28/15 18:32:00 CDT, Stop date: 12/28/15 18:32:00 CDT Start Date: 12/28/15 Stop Date: 12/28/15 Status: Completed Results No data available for this section Immunizations Given and Recorded Vaccine Date Status Refusal Reason pneumococcal 23-valent vaccine 03/22/15 Given Procedures Procedure Date Related Diagnosis Body Site Arthroplasty of the hip 05/23/09 Arthroscopic knee operation Breast biopsy and related procedures section1 Laminectomy and discectomy Open reduction and fixation of fracture 1x2 1989, 1992 Social History Social History Type Response Substance Abuse Use: None. Alcohol Past Smoking Status Current every day smoker; Type: Cigarettes; Exposure to Tobacco Smoke 1/2 pk a day; Cigarette Smoking Last 365 Days No; Reg Smoking Cessation Counseling No Assessment and Plan No data available for this section
--- OUTSIDE RECORDS SUMMARY | 2018-09-17 06:25 | XMS REPORT ---
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 Allergies, Adverse Reactions, Alerts Allergy Name Allergy Type Status Severity Reaction(s) Onset Date Inactive Date Treating Clinician Comments No Known Allergies DA Active U 2017-01-31 00:00:00 Medications This patient has no known medications. Results Test Description Test Time Test Comments Text Results Atomic Results Result Comments - XR CHEST 1 V 2018-09-07 15:38:00 Name: KATE HERNÁNDEZ [facility] ED : 1965 Age/S: 53 / F [address] [address] Unit #: [id number] Loc: [place] [address] Phys: Grabiel Ramirez MD Acct: [id number] Dis Date: Status: ADM IN PHONE #: [phone] Exam Date: 09/07/2018 1453 FAX #: Reason: SOB EXAMS: CPT: [id number] XR CHEST 1 V 05168 Fluoro Time: DAP (Gy m2): Air Kerma (mGy): EXAM: CHEST ONE VIEW INDICATION: Shortness of breath COMPARISON: July 01, 2010 TECHNIQUE: AP view of the chest FINDINGS: The heart size is normal. There are mild congestive changes bilaterally. No pneumothorax or pleural effusion is identified. The osseous structures are normal. IMPRESSION: Mild congestive changes bilaterally. LO CATION: B2 at 1538 Reported and signed by: Anisha Wahl M.D. CC: Grabiel Ramirez MD; Damaris Pryor MD PAGE 1 Signed Report Name: KATE HERNÁNDEZ [place] : 1965 Age/S: 53 / F [address] [address] Unit #: [id number] Loc: [place] [address] Phys: Grabiel Ramirez MD Acct: [id number] Dis Date: Status: ADM IN PHONE #: [phone] Exam Date: 09/07/2018 1458 FAX #: Reason: SOB EXAMS: CPT: [id number] XR CHEST 1 V 25938 Fluoro Time: DAP (Gy m2): Air Kerma (mGy): <Continued> Technologist: RT Lynette(R) Trnscb Date/Time: 09/07/2018 (1538) 16 Orig Print D/T: S: 09/07/2018 (5678) PAGE 2 Signed Report - XR L-SPINE 2/3 VIEWS 2018-09-07 11:40:00 Name: KATE HERNÁNDEZ [place] : 1965 Age/S: 53 / F [address] [address] Unit #: [id number] Loc: [place] [address] Phys: Grabiel Ramirez MD Acct: [id number] Dis Date: Status: ADM IN PHONE #: [phone] Exam Date: 09/07/2018 1114 FAX #: Reason: LOW BACK PAIN EXAMS: CPT: [id number] XR L-SPINE 2/3 VIEWS 79125 Fluoro Time: DAP (Gy m2): Air Kerma (mGy): EXAM: XR LUMBAR SPINE 3 VIEWS INDICATION: Low back pain COMPARISON: October 04, 2013 TECHNIQUE: AP, coned lateral, and lateral radiographs of the lumbar spine FINDINGS: 5 lumbar type, non-rib bearing vertebral bodies are present. The vertebral bodies are normal in height and density. There is straightening of the normal lumbar lordosis. The facet joints and spinous processes are normal in alignment. There is diffuse facet joint arthropathy. There is loss of the intervertebral disc height throughout the lumbar spine. Sacroiliac joints are normal. No soft tissue abnormality is identified. 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 LOCATION: B2 at 1140 Reported and signed by: Anisha Wahl M.D. CC: Grabiel Ramirez MD; Damaris Pryor MD PAGE 1 Signed Report Name: KATE HERNÁNDEZ [place] : 1965 Age/S: 53 / F [address] [address] Unit #: [id number] Loc: [place] [address] Phys: Grabiel Ramirez MD Acct: [id number] Dis Date: Status: ADM IN PHONE #: [phone] Exam Date: 09/07/2018 1114 FAX #: Reason: LOW BACK PAIN EXAMS: CPT: [id number] XR L-SPINE 2/3 VIEWS 51776 Fluoro Time: DAP (Gy m2): Air Kerma (mGy): <Continued> Technologist: Liliam Shearer, RT(R)(CT) Trnscb Date/Time: 09/07/2018 (1140) 16 Orig Print D/T: S: 09/07/2018 (1143) PAGE 2 Signed Report CBC W/AUTO DIFF 2018-09-07 05:06:00 WHITE BLOOD CELL (test code=WBC) 7.0 K/mm3 3.5-11.0 RED BLOOD CELL (test code=RBC) 3.35 M/mm3 4.70-6.10 HEMOGLOBIN (test code=HGB) 8.9 G/DL 10.4-14.9 HEMATOCRIT (test code=HCT) 29.7 % 31.5-44.1 MEAN CELL VOLUME (test code=MCV) 88.7 Fl 84.5-98.6 MEAN CELL HGB (test code=MCH) 26.6 pg 27.0-34.2 MEAN CELL HGB CONCETRATION (test code=MCHC) 30.0 G/DL 31.5-34.0 RED CELL DISTRIBUTION WIDTH (test code=RDW) 16.2 SD 11.5-14.5 PLATELET COUNT (test code=PLT) 328.0 K/mm3 150-450 MEAN PLATELET VOLUME (test code=MPV) 10.30 fL 7.0-10.5 NEUTROPHIL % (test code=NT%) 64.6 % 40-76 LYMPHOCYTE % (test code=LY%) 21.3 % 20.5-51.1 MONOCYTE % (test code=MO%) 12.2 % 1.7-9.3 EOSINOPHIL % (test code=EO%) 1.6 % 0.0-6.0 BASOPHIL % (test code=BA%) 0.3 % 0.0-2.0 NEUTROPHIL # (test code=NT#) 4.55 K/mm3 1.8-7.6 LYMPHOCYTE # (test code=LY#) 1.5 K/mm3 0.6-3.2 MONOCYTE # (test code=MO#) 0.9 K/mm3 0.3-1.1 EOSINOPHIL # (test code=EO#) 0.1 K/mm3 0.0-0.4 BASOPHIL # (test code=BA#) 0.0 K/mm3 0.0-0.1 MANUAL DIFF REQUIRED (test code=MDIFF) NO DIFF/SCN CRITERIA SLIDE REVIEW CONSISTANT WITH AUTO DIFFERENTIAL. COMPREHENSIVE METABOLIC [id number] 04:34:00* Test Item Value Reference Range Comments SODIUM (test code=NA) 139 mmol/L 134-147 POTASSIUM (test code=K) 3.4 mmol/L 3.4-5.0 CHLORIDE (test code=CL) 104 mmol/L 100-108 CARBON DIOXIDE (test code=CO2) 31 mmol/L 21-32 ANION GAP (test code=GAP) 4.0 GAP calc 4.0-15.0 GLUCOSE (test code=GLU) 85 MG/DL 70-110 BLOOD UREA NITROGEN (test code=BUN) 20 MG/DL 7-18 GLOMERULAR FILTRATION RATE (test code=GFR) >=60 max estimate estGFR >60 CREATININE (test code=CREAT) 0.9 MG/DL 0.6-1.0 TOTAL PROTEIN (test code=PROT) 5.7 G/DL 6.4-8.2 ALBUMIN (test code=ALB) 2.3 G/DL 3.4-5.0 GLOBULIN (test code=GLOB) 3.4 GM/dL ALBUMIN/GLOBULIN RATIO (test code=A/G) 0.7 RATIO 1.2-2.2 CALCIUM (test code=CA) 9.3 MG/DL 8.5-10.1 BILIRUBIN TOTAL (test code=BILT) 0.20 MG/DL 0.2-1.2 SGOT/AST (test code=AST) 14 Unit/L 15-37 SGPT/ALT (test code=ALT) 26 Unit/L 12-78 ALKALINE PHOSPHATASE TOTAL (test code=ALKP) 69 Unit/L 45-117 COMPREHENSIVE METABOLIC [id number] 04:24:00* Test Item Value Reference Range Comments SODIUM (test code=NA) 139 mmol/L 134-147 POTASSIUM (test code=K) 3.4 mmol/L 3.4-5.0 CHLORIDE (test code=CL) 104 mmol/L 100-108 CARBON DIOXIDE (test code=CO2) 31 mmol/L 21-32 ANION GAP (test code=GAP) 4.0 GAP calc 4.0-15.0 GLUCOSE (test code=GLU) 85 MG/DL 70-110 BLOOD UREA NITROGEN (test code=BUN) 20 MG/DL 7-18 GLOMERULAR FILTRATION RATE (test code=GFR) estGFR >60 CREATININE (test code=CREAT) MG/DL 0.6-1.0 TOTAL PROTEIN (test code=PROT) G/DL 6.4-8.2 ALBUMIN (test code=ALB) G/DL 3.4-5.0 GLOBULIN (test code=GLOB) GM/dL ALBUMIN/GLOBULIN RATIO (test code=A/G) RATIO 1.2-2.2 CALCIUM (test code=CA) 9.3 MG/DL 8.5-10.1 BILIRUBIN TOTAL (test code=BILT) MG/DL 0.2-1.2 SGOT/AST (test code=AST) Unit/L 15-37 SGPT/ALT (test code=ALT) Unit/L 12-78 ALKALINE PHOSPHATASE TOTAL (test code=ALKP) Unit/L 45-117 CBC W/AUTO [id number] 04:22:00* Test Item Value Reference Range Comments WHITE BLOOD CELL (test code=WBC) 7.0 K/mm3 3.5-11.0 RED BLOOD CELL (test code=RBC) 3.35 M/mm3 4.70-6.10 HEMOGLOBIN (test code=HGB) 8.9 G/DL 10.4-14.9 HEMATOCRIT (test code=HCT) 29.7 % 31.5-44.1 MEAN CELL VOLUME (test code=MCV) 88.7 Fl 84.5-98.6 MEAN CELL HGB (test code=MCH) 26.6 pg 27.0-34.2 MEAN CELL HGB CONCETRATION (test code=MCHC) 30.0 G/DL 31.5-34.0 RED CELL DISTRIBUTION WIDTH (test code=RDW) 16.2 SD 11.5-14.5 PLATELET COUNT (test code=PLT) 328.0 K/mm3 150-450 MEAN PLATELET VOLUME (test code=MPV) 10.30 fL 7.0-10.5 NEUTROPHIL % (test code=NT%) % 40-76 LYMPHOCYTE % (test code=LY%) % 20.5-51.1 MONOCYTE % (test code=MO%) % 1.7-9.3 EOSINOPHIL % (test code=EO%) % 0.0-6.0 BASOPHIL % (test code=BA%) % 0.0-2.0 NEUTROPHIL # (test code=NT#) K/mm3 1.8-7.6 LYMPHOCYTE # (test code=LY#) K/mm3 0.6-3.2 MONOCYTE # (test code=MO#) K/mm3 0.3-1.1 EOSINOPHIL # (test code=EO#) K/mm3 0.0-0.4 BASOPHIL # (test code=BA#) K/mm3 0.0-0.1 MANUAL DIFF REQUIRED (test code=MDIFF) DIFF/SCN CRITERIA CBC W/AUTO [id number] 19:23:00* Test Item Value Reference Range Comments WHITE BLOOD CELL (test code=WBC) 10.1 K/mm3 3.5-11.0 RED BLOOD CELL (test code=RBC) 3.82 M/mm3 4.70-6.10 HEMOGLOBIN (test code=HGB) 10.4 G/DL 10.4-14.9 HEMATOCRIT (test code=HCT) 33.4 % 31.5-44.1 MEAN CELL VOLUME (test code=MCV) 87.4 Fl 84.5-98.6 MEAN CELL HGB (test code=MCH) 27.2 pg 27.0-34.2 MEAN CELL HGB CONCETRATION (test code=MCHC) 31.1 G/DL 31.5-34.0 RED CELL DISTRIBUTION WIDTH (test code=RDW) 16.3 SD 11.5-14.5 PLATELET COUNT (test code=PLT) 366.0 K/mm3 150-450 MEAN PLATELET VOLUME (test code=MPV) 10.00 fL 7.0-10.5 NEUTROPHIL % (test code=NT%) 73.9 % 40-76 LYMPHOCYTE % (test code=LY%) 16.1 % 20.5-51.1 MONOCYTE % (test code=MO%) 8.4 % 1.7-9.3 EOSINOPHIL % (test code=EO%) 1.2 % 0.0-6.0 BASOPHIL % (test code=BA%) 0.4 % 0.0-2.0 NEUTROPHIL # (test code=NT#) 7.49 K/mm3 1.8-7.6 LYMPHOCYTE # (test code=LY#) 1.6 K/mm3 0.6-3.2 MONOCYTE # (test code=MO#) 0.9 K/mm3 0.3-1.1 EOSINOPHIL # (test code=EO#) 0.1 K/mm3 0.0-0.4 BASOPHIL # (test code=BA#) 0.0 K/mm3 0.0-0.1 MANUAL DIFF REQUIRED (test code=MDIFF) NO DIFF/SCN CRITERIA SLIDE REVIEW CONSISTANT WITH AUTO DIFFERENTIAL. BASIC METABOLIC [id number] 18:49:00* Test Item Value Reference Range Comments SODIUM (test code=NA) 141 mmol/L 134-147 POTASSIUM (test code=K) 3.7 mmol/L 3.4-5.0 CHLORIDE (test code=CL) 105 mmol/L 100-108 CARBON DIOXIDE (test code=CO2) 31 mmol/L 21-32 ANION GAP (test code=GAP) 5.0 GAP calc 4.0-15.0 GLUCOSE (test code=GLU) 84 MG/DL 70-110 BLOOD UREA NITROGEN (test code=BUN) 20 MG/DL 7-18 GLOMERULAR FILTRATION RATE (test code=GFR) >=60 max estimate estGFR >60 CREATININE (test code=CREAT) 1.0 MG/DL 0.6-1.0 CALCIUM (test code=CA) 9.9 MG/DL 8.5-10.1 CBC W/AUTO [id number] 18:31:00* Test Item Value Reference Range Comments WHITE BLOOD CELL (test code=WBC) 10.1 K/mm3 3.5-11.0 RED BLOOD CELL (test code=RBC) 3.82 M/mm3 4.70-6.10 HEMOGLOBIN (test code=HGB) 10.4 G/DL 10.4-14.9 HEMATOCRIT (test code=HCT) 33.4 % 31.5-44.1 MEAN CELL VOLUME (test code=MCV) 87.4 Fl 84.5-98.6 MEAN CELL HGB (test code=MCH) 27.2 pg 27.0-34.2 MEAN CELL HGB CONCETRATION (test code=MCHC) 31.1 G/DL 31.5-34.0 RED CELL DISTRIBUTION WIDTH (test code=RDW) 16.3 SD 11.5-14.5 PLATELET COUNT (test code=PLT) 366.0 K/mm3 150-450 MEAN PLATELET VOLUME (test code=MPV) 10.00 fL 7.0-10.5 NEUTROPHIL % (test code=NT%) % 40-76 LYMPHOCYTE % (test code=LY%) % 20.5-51.1 MONOCYTE % (test code=MO%) % 1.7-9.3 EOSINOPHIL % (test code=EO%) % 0.0-6.0 BASOPHIL % (test code=BA%) % 0.0-2.0 NEUTROPHIL # (test code=NT#) K/mm3 1.8-7.6 LYMPHOCYTE # (test code=LY#) K/mm3 0.6-3.2 MONOCYTE # (test code=MO#) K/mm3 0.3-1.1 EOSINOPHIL # (test code=EO#) K/mm3 0.0-0.4 BASOPHIL # (test code=BA#) K/mm3 0.0-0.1 MANUAL DIFF REQUIRED (test code=MDIFF) DIFF/SCN CRITERIA - XR TIBIA/FIBULA 2 V [id number] 17:23:00 Name: KATE HERNÁNDEZ [facility] ED : 1965 Age/S: 53 / F [address] [facility] [address] Unit #: [id number] Loc: [place] [address] Phys: Mona Corona MD Acct: [id number] Dis Date: Status: REG ER PHONE #: [phone] Exam Date: 09/06/2018 1717 FAX #: Reason: leg pain EXAMS: CPT: [id number] XR TIBIA/FIBUL[place] [address] Fluoro Time: DAP (Gy m2): Air Kerma (mGy): Left tibia and fibula 2 views CLINICAL INDICATION: Leg pain COMPARISON: 09/02/2018 Location R 16 Patient is status post knee arthroplasty with metallic prostheses in appropriate position of the femoral condyles and tibial plateaus. There is no evidence of fracture, dislocation or acute osseous abnormality. Mild diffuse osteopenia is noted as well as soft tissue swelling of the medial and lateral malleoli and phleboliths. IMPRESSION: 1. Soft tissue swelling of the medial mild and lateral malleoli 2. Knee arthroplasty 3. No acute osseous abnormality. at 1723 Reported and signed by: Kaya Kurtz M.D. CC: Mona Corona MD; Damaris Pryor MD PAGE 1 Signed Report Name: KATE HERNÁNDEZ [facility] ED : 1965 Age/S: 53 / F [address] [address] Unit #: [id number] Loc: [place] [address] Phys: Mona Corona MD Acct: [id number] Dis Date: Status: REG ER PHONE #: [phone] Exam Date: 09/06/2018 1711 FAX #: Reason: leg pain EXAMS: CPT: [id number] XR TIBIA/FIBUL[place] [address] Fluoro Time: DAP (Gy m2): Air Kerma (mGy): <Continued> Technologist: SERJIO RODRIGUEZ RT(R)(CT)(MR); ... Trnscb Date/Time: 09/06/2018 (172) [email or web address] Orig Print D/T: S: 09/06/2018 (1950) PAGE 2 Signed Report PARATHYROID HORMONE [id number] 05:54:00* Test Item Value Reference Range Comments PARATHYROID HORMONE INTACT (test code=PARAI) 13.6 PG/ML 26-72 CBC W/AUTO [id number] 05:31:00* Test Item Value Reference Range Comments WHITE BLOOD CELL (test code=WBC) 8.7 K/mm3 3.5-11.0 RED BLOOD CELL (test code=RBC) 3.56 M/mm3 4.70-6.10 HEMOGLOBIN (test code=HGB) 9.5 G/DL 10.4-14.9 HEMATOCRIT (test code=HCT) 31.6 % 31.5-44.1 MEAN CELL VOLUME (test code=MCV) 88.8 Fl 84.5-98.6 MEAN CELL HGB (test code=MCH) 26.7 pg 27.0-34.2 MEAN CELL HGB CONCETRATION (test code=MCHC) 30.1 G/DL 31.5-34.0 RED CELL DISTRIBUTION WIDTH (test code=RDW) 16.6 SD 11.5-14.5 PLATELET COUNT (test code=PLT) 304.0 K/mm3 150-450 MEAN PLATELET VOLUME (test code=MPV) 10.30 fL 7.0-10.5 NEUTROPHIL % (test code=NT%) 63.9 % 40-76 LYMPHOCYTE % (test code=LY%) 20.1 % 20.5-51.1 MONOCYTE % (test code=MO%) 13.7 % 1.7-9.3 EOSINOPHIL % (test code=EO%) 2.1 % 0.0-6.0 BASOPHIL % (test code=BA%) 0.2 % 0.0-2.0 NEUTROPHIL # (test code=NT#) 5.57 K/mm3 1.8-7.6 LYMPHOCYTE # (test code=LY#) 1.8 K/mm3 0.6-3.2 MONOCYTE # (test code=MO#) 1.2 K/mm3 0.3-1.1 EOSINOPHIL # (test code=EO#) 0.2 K/mm3 0.0-0.4 BASOPHIL # (test code=BA#) 0.0 K/mm3 0.0-0.1 MANUAL DIFF REQUIRED (test code=MDIFF) NO DIFF/SCN CRITERIA SLIDE REVIEW CONSISTANT WITH AUTO DIFFERENTIAL. BASIC METABOLIC [id number] 04:41:00* Test Item Value Reference Range Comments SODIUM (test code=NA) 137 mmol/L 134-147 POTASSIUM (test code=K) 3.5 mmol/L 3.4-5.0 CHLORIDE (test code=CL) 102 mmol/L 100-108 CARBON DIOXIDE (test code=CO2) 32 mmol/L 21-32 ANION GAP (test code=GAP) 3.0 GAP calc 4.0-15.0 GLUCOSE (test code=GLU) 131 MG/DL 70-110 BLOOD UREA NITROGEN (test code=BUN) 38 MG/DL 7-18 GLOMERULAR FILTRATION RATE (test code=GFR) 42 estGFR >60 CREATININE (test code=CREAT) 1.4 MG/DL 0.6-1.0 CALCIUM (test code=CA) 13.7 MG/DL 8.5-10.1 [id number] 04:41:00* Test Item Value Reference Range Comments PHOSPHOROUS (test code=PHOS) 5.2 MG/DL 2.5-4.9 CBC W/AUTO [id number] 04:11:00* Test Item Value Reference Range Comments WHITE BLOOD CELL (test code=WBC) 8.7 K/mm3 3.5-11.0 RED BLOOD CELL (test code=RBC) 3.56 M/mm3 4.70-6.10 HEMOGLOBIN (test code=HGB) 9.5 G/DL 10.4-14.9 HEMATOCRIT (test code=HCT) 31.6 % 31.5-44.1 MEAN CELL VOLUME (test code=MCV) 88.8 Fl 84.5-98.6 MEAN CELL HGB (test code=MCH) 26.7 pg 27.0-34.2 MEAN CELL HGB CONCETRATION (test code=MCHC) 30.1 G/DL 31.5-34.0 RED CELL DISTRIBUTION WIDTH (test code=RDW) 16.6 SD 11.5-14.5 PLATELET COUNT (test code=PLT) 304.0 K/mm3 150-450 MEAN PLATELET VOLUME (test code=MPV) 10.30 fL 7.0-10.5 NEUTROPHIL % (test code=NT%) 63.9 % 40-76 LYMPHOCYTE % (test code=LY%) 20.1 % 20.5-51.1 MONOCYTE % (test code=MO%) 13.7 % 1.7-9.3 EOSINOPHIL % (test code=EO%) 2.1 % 0.0-6.0 BASOPHIL % (test code=BA%) 0.2 % 0.0-2.0 NEUTROPHIL # (test code=NT#) 5.57 K/mm3 1.8-7.6 LYMPHOCYTE # (test code=LY#) 1.8 K/mm3 0.6-3.2 MONOCYTE # (test code=MO#) 1.2 K/mm3 0.3-1.1 EOSINOPHIL # (test code=EO#) 0.2 K/mm3 0.0-0.4 BASOPHIL # (test code=BA#) 0.0 K/mm3 0.0-0.1 MANUAL DIFF REQUIRED (test code=MDIFF) DIFF/SCN CRITERIA BASIC METABOLIC [id number] 23:53:00* Test Item Value Reference Range Comments SODIUM (test code=NA) 135 mmol/L 134-147 POTASSIUM (test code=K) 3.6 mmol/L 3.4-5.0 CHLORIDE (test code=CL) 99 mmol/L 100-108 CARBON DIOXIDE (test code=CO2) 30 mmol/L 21-32 ANION GAP (test code=GAP) 6.0 GAP calc 4.0-15.0 GLUCOSE (test code=GLU) 138 MG/DL 70-110 BLOOD UREA NITROGEN (test code=BUN) 39 MG/DL 7-18 GLOMERULAR FILTRATION RATE (test code=GFR) 36 estGFR >60 CREATININE (test code=CREAT) 1.6 MG/DL 0.6-1.0 CALCIUM (test code=CA) 14.8 MG/DL 8.5-10.1 SED [id number] 21:36:00* Test Item Value Reference Range Comments SED RATE (test code=SEDW) 53 mm/hr 0-30 C REACTIVE [id number] 21:10:00* Test Item Value Reference Range Comments C REACTIVE PROTEIN (test code=CRP) 9.960 MG/DL 0.000-0.3 - XR TIBIA/FIBULA 2 V [id number] 20:31:00 Name: KATE HERNÁNDEZ [facility] ED : 1965 Age/S: 53 / F [address] [address] Unit #: [id number] Loc: [place] [address] Phys: Judd Gilliam MD Acct: [id number] Dis Date: Status: REG ER PHONE #: [phone] Exam Date: 09/02/20182029 FAX #: Reason: left leg cellulitis, pain EXAMS: CPT: [id number] XR TIBIA/FIBUL[place] [address] Fluoro Time: DAP (Gy m2): Air Kerma (mGy): Location: B2. LEFT TIBIA/FIBULA, 2 VIEWS HISTORY: Left leg cellulitis, pain FINDINGS: The bones are osteopenic. There may be a soft tissue ulceration along the anterior mid tibia. No erosions or periostitis. No fracture or dislocation. Total knee arthroplasty. Vascular calcifications. IMPRESSION: Possible mid anterior soft tissue ulceration/wound. No radiographic evidence for osteomyelitis. at 2030 Reported and signed by: Fam Naidu M.D. CC: Loreta ANNA; Damaris Pryor MD; Vikas Puckett MD PAGE 1 Signed Report Name: KATE HERNÁNDEZ [facility] ED : 1965 Age/S: 53 / F [address] [address] Unit #: [id number] Loc: [place] [address] Phys: Judd Gilliam MD Acct: [id number] Dis Date: Status: [facility] ER PHONE #: [phone] Exam Date: 09/02/20182029 FAX #: Reason: left leg cellulitis, pain EXAMS: CPT: [id number] XR TIBIA/FIBUL[place] [address] Fluoro Time: DAP (Gy m2): Air Kerma (mGy): < Continued> Technologist: SERJIO RODRIGUEZ RT(R)(CT)(MR); Loreta Iraheta RT(R) Trnscb Date/Time: 09/02/2018 (2030) [id number] Orig Print D/T: S: 09/02/2018 (2034) PAGE 2 Signed Report CBC W/AUTO DIFF 2018-09-02 20:26:00* Test Item Value Reference Range Comments WHITE BLOOD CELL (test code=WBC) 12.7 K/mm3 3.5-11.0 RED BLOOD CELL (test code=RBC) 4.41 M/mm3 4.70-6.10 HEMOGLOBIN (test code=HGB) 11.8 G/DL 10.4-14.9 HEMATOCRIT (test code=HCT) 38.0 % 31.5-44.1 MEAN CELL VOLUME (test code=MCV) 86.2 Fl 84.5-98.6 MEAN CELL HGB (test code=MCH) 26.8 pg 27.0-34.2 MEAN CELL HGB CONCETRATION (test code=MCHC) 31.1 G/DL 31.5-34.0 RED CELL DISTRIBUTION WIDTH (test code=RDW) 16.6 SD 11.5-14.5 PLATELET COUNT (test code=PLT) 373.0 K/mm3 150-450 MEAN PLATELET VOLUME (test code=MPV) 9.70 fL 7.0-10.5 NEUTROPHIL % (test code=NT%) 70.9 % 40-76 LYMPHOCYTE % (test code=LY%) 16.5 % 20.5-51.1 MONOCYTE % (test code=MO%) 11.1 % 1.7-9.3 EOSINOPHIL % (test code=EO%) 1.3 % 0.0-6.0 BASOPHIL % (test code=BA%) 0.2 % 0.0-2.0 NEUTROPHIL # (test code=NT#) 8.96 K/mm3 1.8-7.6 LYMPHOCYTE # (test code=LY#) 2.1 K/mm3 0.6-3.2 MONOCYTE # (test code=MO#) 1.4 K/mm3 0.3-1.1 EOSINOPHIL # (test code=EO#) 0.2 K/mm3 0.0-0.4 BASOPHIL # (test code=BA#) 0.0 K/mm3 0.0-0.1 MANUAL DIFF REQUIRED (test code=MDIFF) NO DIFF/SCN CRITERIA SLIDE REVIEW CONSISTANT WITH AUTO DIFFERENTIAL. BASIC METABOLIC [id number] 20:15:00* Test Item Value Reference Range Comments SODIUM (test code=NA) 134 mmol/L 134-147 POTASSIUM (test code=K) 3.8 mmol/L 3.4-5.0 CHLORIDE (test code=CL) 97 mmol/L 100-108 CARBON DIOXIDE (test code=CO2) 31 mmol/L 21-32 ANION GAP (test code=GAP) 6.0 GAP calc 4.0-15.0 GLUCOSE (test code=GLU) 114 MG/DL 70-110 BLOOD UREA NITROGEN (test code=BUN) 39 MG/DL 7-18 GLOMERULAR FILTRATION RATE (test code=GFR) 33 estGFR >60 CREATININE (test code=CREAT) 1.7 MG/DL 0.6-1.0 CALCIUM (test code=CA) 14.7 MG/DL 8.5-10.1 CBC W/AUTO [id number] 20:07:00* Test Item Value Reference Range Comments WHITE BLOOD CELL (test code=WBC) 12.7 K/mm3 3.5-11.0 RED BLOOD CELL (test code=RBC) 4.41 M/mm3 4.70-6.10 HEMOGLOBIN (test code=HGB) 11.8 G/DL 10.4-14.9 HEMATOCRIT (test code=HCT) 38.0 % 31.5-44.1 MEAN CELL VOLUME (test code=MCV) 86.2 Fl 84.5-98.6 MEAN CELL HGB (test code=MCH) 26.8 pg 27.0-34.2 MEAN CELL HGB CONCETRATION (test code=MCHC) 31.1 G/DL 31.5-34.0 RED CELL DISTRIBUTION WIDTH (test code=RDW) 16.6 SD 11.5-14.5 PLATELET COUNT (test code=PLT) 373.0 K/mm3 150-450 MEAN PLATELET VOLUME (test code=MPV) 9.70 fL 7.0-10.5 NEUTROPHIL % (test code=NT%) % 40-76 LYMPHOCYTE % (test code=LY%) % 20.5-51.1 MONOCYTE % (test code=MO%) % 1.7-9.3 EOSINOPHIL % (test code=EO%) % 0.0-6.0 BASOPHIL % (test code=BA%) % 0.0-2.0 NEUTROPHIL # (test code=NT#) K/mm3 1.8-7.6 LYMPHOCYTE # (test code=LY#) K/mm3 0.6-3.2 MONOCYTE # (test code=MO#) K/mm3 0.3-1.1 EOSINOPHIL # (test code=EO#) K/mm3 0.0-0.4 BASOPHIL # (test code=BA#) K/mm3 0.0-0.1 MANUAL DIFF REQUIRED (test code=MDIFF) DIFF/SCN CRITERIA CHEST 2 VIEWS [place] [id number] [place] [id number] Patient Name: KATE HERNÁNDEZ MR #: [id number] : 1965 Age/Sex: 51/F Req #: [id number] Adm Physician: Ordered by: COOPER HER MD Report #: [id number] Location: [facility] Room/Bed: Procedure: [id number] DX/CHEST 2 VIEWS Exam Date: 02/17/17 Exam Time: 1730 REPORT STATUS: S igned PROCEDURE: Frontal and lateral views of the chest. COMPARISON: None. INDICATIONS: PRE-OP FINDINGS: Lines/tubes: None. Lungs: The lungs are well inflated and clear. There is no evidence of pneu monia or pulmonary edema. Pleura: There is no pleural effusion or pneumot horax. Heart and mediastinum: The heart and the mediastinum are normal. Bones: No acute bony abnormality. IMPRESSION: 1. No acute th oracic abnormality. Ken Champion M.D. Dictated by: Ken Myers M.D. on 02/17/2017 at 18:27 Electronically approved by: Ken Champion M.D. on 02/17/2017 at 18:27 Dictated By: ADELA CHAMPION MD, MD 26 Transcribed By: CUCO on 02/17/171826 COPY TO: COOPER HER MD
[2018-09-17 10:15] VITALS: BP 138/94
--- NOTE | 2018-09-17 16:48 | Operative Report ---
DATE OF PROCEDURE: 09/17/2018 SURGEON: Chin Frank MD PREOPERATIVE DIAGNOSIS: Wound, left leg, 50 sq cm. POSTOPERATIVE DIAGNOSIS: Wound, left leg, 50 sq cm. PROCEDURE: 1. Excisional preparation of wound, left leg, 50 sq cm. 2. Split-thickness skin grafting, left leg, 50 sq cm. ANESTHESIA: General. HISTORY: The patient is a 53-year-old female, who has a 50 sq cm wound on the left leg as a result of a traumatic injury. The risks, benefits, alternatives of treatment were discussed with the patient. She is prepared to undergo the procedure as outlined. PROCEDURE IN DETAIL: The patient was marked preoperatively in the holding area. She was brought to the operating theater and after the induction of adequate general anesthesia, she was prepped and draped in a supine position and a time-out was performed. The procedure was begun by sharply excising the wound edges with a 15 blade. At this point, all the devitalized skin and subcutaneous tissue down to level of the fascia was removed and a curette was used to remove all colonized granulation tissue. The wound was then pulse lavaged with 1 L of antibiotic-containing solution. At the completion of the excisional preparation, no devitalized tissue remained and the wound appeared to be back to its acute state. A template of the wound was made and a split-thickness skin graft was then harvested from the left lateral thigh using a dermatome at approximately 14-15 thousands of an inch thickness. The graft was then placed dermis side down onto the wound bed and secured using surgical clips. The graft was noted to have good adherence after being placed on the wound bed. At this point, a negative pressure wound dressing was placed over the skin graft and set for approximately 75-80 mm of continuous negative pressure. The seal was noted to be satisfactory. The donor site was dressed with Xeroform gauze and sterile dressings. The patient tolerated the procedure well. The estimated blood loss of the procedure was less than 50 mL. She tolerated the procedure well, was brought to recovery room in satisfactory condition and discharged with a postoperative instruction sheet as well as a followup appointment. Chin Frank MD ER/MODL /[id number]
== END | disposition home or self-care (01) ==
LOC: OR 06:05
PROVIDERS: ATTEND Plastic Surgery
DX: S81.802A Unspecified open wound, left lower leg, initial encounter (principal); I10 Essential (primary) hypertension
CPT/HCPCS: 93005; J0690; J1100; J2001; J2250; J2405

== ENCOUNTER → 2018-09-18 | Outpatient (CLI) | payer OTHER ==
[~2018-09-18] MED LIST changes: -ACETAMINOPHEN 1000 MG/100 ML IV ONE; -CEFAZOLIN SOD 1 GM/NS 50ML 50 ML IV ONE; -DESFLURANE 240 ML BTL INH ONE; -DEXAMETHASONE SOD PHOS INJ 4 MG/ML VIAL ONE; -EPHEDRINE SULFATE INJ 50 MG/10 ML SYR ONE; -FENTANYL CITRATE/PF 100MCG/2 ML INJ ONE; -HYDROMORPHONE 2MG/ML 2 MG/ML ML ONE; -LIDOCAINE HCL 2% LOCAL INJ 5 ML SDV VIAL INJ ONE; -MIDAZOLAM HCL 2 MG/2 ML VIAL ONE; -ONDANSETRON HCL INJ 2MG/ML 2ML 2 MG/ML VIAL ONE; -PROPOFOL IV EMULSION 10 MG/ML 20 ML VIAL ONE
== END ==
LOC: WCC 13:35
PROVIDERS: ATTEND Plastic Surgery
DX: T86.821 Skin graft (allograft) (autograft) failure (principal); R60.0 Localized edema; S81.802A Unspecified open wound, left lower leg, initial encounter; B96.89 Other specified bacterial agents as the cause of diseases classified elsewhere; I10 Essential (primary) hypertension; L02.435 Carbuncle of right lower limb; M79.661 Pain in right lower leg; W22.09XA Striking against other stationary object, initial encounter; Z01.810 Encounter for preprocedural cardiovascular examination; Z01.811 Encounter for preprocedural respiratory examination

== ENCOUNTER → 2018-09-21 | Outpatient (CLI) | payer OTHER | LOC: WCC 09:07 | PROVIDERS: ATTEND Plastic Surgery | DX: T86.821 Skin graft (allograft) (autograft) failure (principal); T81.89XA Other complications of procedures, not elsewhere classified, initial encounter; S81.802A Unspecified open wound, left lower leg, initial encounter; M79.661 Pain in right lower leg; R60.0 Localized edema; L02.435 Carbuncle of right lower limb; I10 Essential (primary) hypertension; B96.89 Other specified bacterial agents as the cause of diseases classified elsewhere; W22.09XA Striking against other stationary object, initial encounter; Z01.810 Encounter for preprocedural cardiovascular examination; Z01.811 Encounter for preprocedural respiratory examination ==

== ENCOUNTER → 2018-09-25 | Outpatient (CLI) | payer OTHER | LOC: WCC 13:59 | PROVIDERS: ATTEND Plastic Surgery | DX: T86.821 Skin graft (allograft) (autograft) failure (principal); T81.89XA Other complications of procedures, not elsewhere classified, initial encounter; S81.802A Unspecified open wound, left lower leg, initial encounter; R60.0 Localized edema; M79.661 Pain in right lower leg; L02.435 Carbuncle of right lower limb; W22.09XA Striking against other stationary object, initial encounter; B96.89 Other specified bacterial agents as the cause of diseases classified elsewhere; I10 Essential (primary) hypertension; Z01.810 Encounter for preprocedural cardiovascular examination; Z01.811 Encounter for preprocedural respiratory examination ==

== ENCOUNTER → 2018-09-28 | Outpatient (CLI) | payer OTHER | LOC: WCC 16:05 | PROVIDERS: ATTEND Plastic Surgery | DX: T86.821 Skin graft (allograft) (autograft) failure (principal); T81.89XA Other complications of procedures, not elsewhere classified, initial encounter; S81.802A Unspecified open wound, left lower leg, initial encounter; R60.0 Localized edema; M79.661 Pain in right lower leg; L02.435 Carbuncle of right lower limb; I10 Essential (primary) hypertension; B96.89 Other specified bacterial agents as the cause of diseases classified elsewhere; W22.09XA Striking against other stationary object, initial encounter; Z01.810 Encounter for preprocedural cardiovascular examination; Z01.811 Encounter for preprocedural respiratory examination ==

== ENCOUNTER → 2018-10-01 | Outpatient (CLI) | payer OTHER | LOC: WCC 12:10 | PROVIDERS: ATTEND Plastic Surgery | DX: T86.821 Skin graft (allograft) (autograft) failure (principal); S81.802A Unspecified open wound, left lower leg, initial encounter; W22.09XA Striking against other stationary object, initial encounter; R60.0 Localized edema; M79.661 Pain in right lower leg; L02.435 Carbuncle of right lower limb; B96.89 Other specified bacterial agents as the cause of diseases classified elsewhere; I10 Essential (primary) hypertension; Z01.810 Encounter for preprocedural cardiovascular examination; Z01.811 Encounter for preprocedural respiratory examination ==

== ENCOUNTER → 2018-10-05 | Outpatient (CLI) | payer OTHER | LOC: WCC 10-02 09:00 | PROVIDERS: ATTEND Plastic Surgery | DX: T86.821 Skin graft (allograft) (autograft) failure (principal); S81.802A Unspecified open wound, left lower leg, initial encounter; R60.0 Localized edema; M79.661 Pain in right lower leg; L02.435 Carbuncle of right lower limb; I10 Essential (primary) hypertension; B96.89 Other specified bacterial agents as the cause of diseases classified elsewhere; W22.09XA Striking against other stationary object, initial encounter; Z01.810 Encounter for preprocedural cardiovascular examination; Z01.811 Encounter for preprocedural respiratory examination ==

== ENCOUNTER → 2018-10-07 | Outpatient (CLI) | payer OTHER | LOC: WCC 12:13 | PROVIDERS: ATTEND Plastic Surgery | DX: T86.821 Skin graft (allograft) (autograft) failure (principal); S81.802A Unspecified open wound, left lower leg, initial encounter; R60.0 Localized edema; M79.661 Pain in right lower leg; L02.435 Carbuncle of right lower limb; B96.89 Other specified bacterial agents as the cause of diseases classified elsewhere; I10 Essential (primary) hypertension; W22.09XA Striking against other stationary object, initial encounter; Z01.810 Encounter for preprocedural cardiovascular examination; Z01.811 Encounter for preprocedural respiratory examination ==

== ENCOUNTER → 2018-10-12 | Outpatient (CLI) | payer OTHER | LOC: WCC 14:54 | PROVIDERS: ATTEND Plastic Surgery | DX: T86.821 Skin graft (allograft) (autograft) failure (principal); S81.802A Unspecified open wound, left lower leg, initial encounter; M79.661 Pain in right lower leg; R60.0 Localized edema; L02.435 Carbuncle of right lower limb; I10 Essential (primary) hypertension; B96.89 Other specified bacterial agents as the cause of diseases classified elsewhere; W22.09XA Striking against other stationary object, initial encounter; Z01.810 Encounter for preprocedural cardiovascular examination; Z01.811 Encounter for preprocedural respiratory examination ==

== ENCOUNTER → 2018-10-19 | Outpatient (CLI) | payer OTHER | LOC: WCC 13:06 | PROVIDERS: ATTEND Plastic Surgery | DX: T86.821 Skin graft (allograft) (autograft) failure (principal); S81.802A Unspecified open wound, left lower leg, initial encounter; R60.0 Localized edema; L02.435 Carbuncle of right lower limb; M79.661 Pain in right lower leg; B96.89 Other specified bacterial agents as the cause of diseases classified elsewhere; I10 Essential (primary) hypertension; W22.09XA Striking against other stationary object, initial encounter; Z01.810 Encounter for preprocedural cardiovascular examination; Z01.811 Encounter for preprocedural respiratory examination ==